=== PATIENT | male | born 1945 | race Caucasian/White ===

== ENCOUNTER 2019-10-04 08:35 | Outpatient (CLI) | payer MEDICARE, OTHER, SELFPAY ==
--- NOTE | 2019-10-04 08:15 | XR_ITS ---
WS: [id number] KUB, 10/04/2019 Clinical Data: Renal calculus Comparison: KUB, 09/29/2018. Findings: No abnormal intraabdominal masses or calcifications are seen. There is no dilatated small bowel or ev idence of obstruction. No definite renal or ureteral calculi are seen. There are phleboliths in the true pelvis. Degenerative change of the lumbar vertebral bodies is moder ate. XR/XR KUB [id number] Impression: Negative KUB.
== END 2019-10-04 08:36 | disposition home or self-care (01) ==
PROVIDERS: Family Provider Nurse Practitioner; PCP Family Medicine; Visit Provider Urology
DX: N20.0 Calculus of kidney (principal)
CPT/HCPCS: 74018; 81001

== ENCOUNTER 2020-04-25 11:45 | Emergency (ER) | payer MEDICARE, OTHER, SELFPAY ==
--- NOTE | 2020-04-25 11:49 | XRR_ITS ---
PROCEDURE INFORMATION: Exam: XR Chest, 1 View Exam date and time: 04/25/2020 12:07 PM Age: 74 years old Clinical indication: Other: Syncope TECHNIQUE: Imaging protocol: XR of the chest Views: 1 view. COMPARISON: No relevant prior studies available. FINDINGS: Lungs: Emphysematous change, interstitial prominence, chronic granulomatous disease. Pleural space: No pleural effusion. Heart/Mediastinum: Cardiac silhouette upper limits of normal in size. Bones/joints: Osteopenia and degenerative change. XR/XR chest 1V portable [id number] IMPRESSION: Emphysematous change, interstitial prominence, chronic granulomatous disease.
--- NOTE | 2020-04-25 11:49 | ECG_ITS ---
[facility] Test Date: 2020-04-25 Pat Name: Servando Whitmore Department: Room: Gender: Male Area Coordinator: : 1945 Requested By: Maxi Taveras Order Number: [id number] Michele MD: Se Ruano M.D. Measurements Intervals [place] Rate: 64 P: 41 DC: 167 QRS: 22 QRSD: 118 T: 34 QT: 448 QTc: 465 Interpretive Statements SINUS RHYTHM MODERATE INTRAVENTRICULAR CONDUCTION DELAY [110+ ms QRS DURATION] NONSPECIFIC ST & T-WAVE ABNORMALITY Compared to ECG 10/30/2015 00:32:11 T-wave abnormality now present ST (T wave) deviation no longer present Electronically Signed On 04-25-2020 18:36:26 CDT by Se Ruano M.D. [id number]
[2020-04-25 12:09] VITALS: BP 168/101; PULSE 66; RESP 18; TEMP 36.5; O2SAT 96; BMI 31.0
[2020-04-25 12:22] LABS: Basophils # 0.1 10^3/uL (0.0-0.1); Basophils % 1.1 %; Eosinophils # 0.2 10^3/uL (0.0-0.8); Eosinophils % 4.5 %; Hematocrit 44.6 % (42.0-52.0); Hemoglobin 14.9 g/dL (11.7-16.6); Lymphocytes # 1.6 10^3/uL (0.8-4.8); Lymphocytes % 35.7 %; Mean Corpuscular HGB Conc 33.4 g/dL (30.0-36.0); Mean Corpuscular Hemoglobin 30.8 pg (28.0-34.0); Mean Corpuscular Volume 92.1 fL (80-94); Mean Platelet Volume 9.8 fL (7.4-10.4); Monocytes # 0.2 10^3/uL (0.2-0.9); Monocytes % 5.1 %; Neutrophils % 53.6 %; Nucleated Red Blood Cells % 0 %; Platelet Count 165 10^3/cmm (130-400); Red Blood Count 4.84 10^6/uL (4.1-5.3); Red Cell Distribution Width 12.7 % (12.1-15.1); White Blood Count 4.5 10^3/uL (4.0-10.0)
--- NOTE | 2020-04-25 12:22 | CT_ITS ---
WS: [id number] CT HEAD NONCONTRAST HISTORY: syncope TECHNIQUE: Contiguous axial imaging performed through the brain in 2.5 mm imaging. Bone and soft tiss ue windows. Sagittal and coronal reformats reviewed. All CT scans at [facility] use at ast one of these dose optimization techniques: automated exposure control; mA and/or kV adjustment pe r patient size (includes targeted exams where dose is matched to clinical indication); or iterative r econstruction. DLP: 810.49 mGy.cm COMPARISON: 10/30/2015 No acute intracranial hemorrhage, midline shift or mass effect. Mild atrophy. Encephalomalacia and large remote LEFT occipital lobe infarct. Prior lacunar infarct o r perivascular space RIGHT basal ganglia. Ventricles: Normal size with no hydrocephalus. Paranasal sinuses: As visualized are clear. Mastoid air cells: Well pneumatized. Calvarium and scalp: Skull is intact with no soft tissue edema or swelling. CT/CT head wo con* [id number] IMPRESSION: 1. No acute intracranial hemorrhage or edema. 2. Large remote LEFT occipital lobe infarct with encephalomalacia. 3. Mild atrophy and chronic ischemic disease otherwise.
--- NOTE | 2020-04-25 12:22 | CT_ITS ---
WS: [id number] CT ABDOMEN AND PELVIS WITH CONTRAST HISTORY: Syncope and abdominal pain. TECHNIQUE: Imaging performed of the abdomen and pelvis with IV contrast. Single phase imaging of the abdomen. Coronal and sagittal reformats are submitted. All CT scans at [facility] use at least one of these dose optimization techniques: automated exposure control; mA and/or kV adjustment per patient size (includes targeted exams where dose is matched to clinical indication); or iterativ e reconstruction. IV CONTRAST: Visipaque 320; 95 mL IV. Oral contrast: No DLP: 1206.7 mGy.cm COMPARISON: 06/22/2019 Lower thorax: Lung bases are clear. Mild cardiac enlargement. Small amount of pericardial thickening or fluid anteriorly. Similar to the prior study. Small hiatal hernia. Liver/biliary system: Normal size with no intrahepatic dilatation. Gallbladder: Normal. No gallstones or wall thickening. No pericholecystic fluid. Pancreas: Normal. Spleen: Normal. Adrenal glands: Normal. Right kidney: Normal size kidney. No obstruction. Exophytic cyst medially from the mid kidney measure s 1.4 cm and unchanged. Left kidney: Normal size kidney. Several cortical cysts with the largest in the upper pole measuring 1.5 cm. No obstruction. Aorta: Mild atherosclerosis and ectasia. Maximum diameter of 2.8 cm. Mild tortuosity and dilatation o f the iliac arteries. No aneurysm. No periaortic hematoma. No free air. Lymphadenopathy: None. Free fluid: None. GI tract: No evidence for appendicitis. No GI tract obstruction. There are a few diverticula in the d escending and sigmoid colon. Abdominal wall: Fat-containing umbilical hernia. Pelvis: No free fluid or adenopathy. Urinary bladder is normal. Bilateral inguinal canals are patent and contains fat. Bones: Straightening of the normal lumbar lordosis. Disc space narrowing and desiccation. CT/CT abdomen pelvis w con* [id number] IMPRESSION: 1. No acute abdominal or pelvic abnormalities. 2. Descending colon and sigmoid diverticulosis without evidence for acute dive rticulitis. 3. Bilateral inguinal and umbilical hernias. 4. No ascites or adenopathy.
--- NOTE | 2020-04-25 12:25 | W.ED.SYNCOPE ---
HPI - Syncope General: Chief Complaint: Syncope Stated Complaint: SYNCOPE WHILE SITTING Time Seen by Provider: 04/25/20 12:09 Source: patient Mode of arrival: ambulatory Limitations: no limitations History of Present Illness: HPI narrative: 74-year-old male who states he was outside roughly an hour ago started to feel lightheaded and passed out for a few seconds. He states he had some abdominal pain before the event. He states been having intermittent abdominal pain like this for months and is felt near syncopal but is never passed out before. He states he vomited once after he came to. He denies any chest pain before after the event. Patient states he currently feels fine has no complaints. Denies any fever. Associated symptoms: Reports abdominal pain and nausea; Deny fever(s) or headache(s) Review of Systems Const: Denies: fever(s), chills, body aches or change in appetite Eyes: Denies: blurry vision or eye discomfort ENMT: Denies: throat pain or dental pain Card: Reports: syncope Resp: Denies: dyspnea GI: Reports: abdominal pain, nausea and vomiting : Denies: dysuria Musc: Denies: neck pain or back pain Skin/Breast: Denies: rash Neuro: Denies: headache(s) Psych: Denies: depression Stephan/Lymph: Denies: easy bruising All/Imm: Denies: urticaria PFSH ED PFSH: Medical History Abdominal aortic aneurysm (AAA) CVA (cerebrovascular accident) Diverticulosis Dizzy DVT (deep venous thrombosis) Dyslipidemia Gross hematuria Head ache Hemiparesis Hiatal hernia HTN (hypertension) Hyperlipidemia Peptic ulcer disease Urolithiasis VSD (ventricular septal defect) Surgical History H/O lithotripsy Family History Mother , at age 91 Lung disease Father , 36-MVA No problems noted. Social History Smoking and tobacco status: never smoked Alcohol intake: never Household members: spouse Marital status: service: Yes status details: 4 YEARS branch: [employer] Current occupational status: retired and disabled History of recent travel: No Current gender identity: Male Physical Exam Const: COMMON NORMALS: no acute distress, patient oriented x3 and healthy appearing HENMT: COMMON NORMALS: normocephalic and atraumatic HEAD & SCALP: normocephalic and atraumatic Eye: COMMON NORMALS: Equal, round and reactive pupils present and EOMs intact bilaterally PUPIL: Yes Equal, round and reactive pupils present Neck/C-Spine: COMMON NORMALS: full ROM and supple Chest: COMMONS NORMALS: normal inspection of the chest and normal palpation of entire chest wall Resp: COMMON NORMALS: normal respiratory effort, No retractions, No use of accessory muscles and clear to auscultation bilaterally AUSCULTATION: clear to auscultation bilaterally Cardio: COMMON NORMALS: regular rate, regular rhythm and No murmurs present (Cardio) RATE: regular rate RHYTHM: regular rhythm GI: COMMON NORMALS: Normal to inspection, nondistended, normoactive bowel sounds present, Soft to palpation, non-tender and no masses PALPATION: Yes Soft to palpation Extremity: COMMON NORMALS: normal to inspection and full ROM Neuro: COMMON NORMALS: patient oriented x3, moves all extremities and no focal motor deficits Psych: COMMON NORMALS: mental status grossly normal, Normal thought process present and cooperative THOUGHT PROCESS: Normal thought process present Skin: COMMON NORMALS: no rashes or lesions noted and no wounds GENERAL SKIN EXAM: no rashes or lesions noted Course Vital Signs: Vital signs: Vital Signs Temperature 97.7 F 04/25/20 12:09 Pulse Rate 60 04/25/20 13:03 Respiratory Rate 12 04/25/20 13:03 Blood Pressure 120/70 04/25/20 13:03 Pulse Oximetry 94 04/25/20 13:03 MDM - Syncope MDM Narrative: Medical decision making narrative: Patient presents here with a syncopal event. He is well-appearing here and has been asymptomatic here. Patient CT head along with CT abdomen are normal. Patient's initial and repeat troponins are normal as well. He is stable for discharge and is to follow-up with his PCP in 2 to 4 days. Patient is to return to the ER if worsening. He understands and agrees to plan. Lab Data: Labs: Lab Results 04/25/20 04/25/20 04/25/20 Range/Units 12:19 12:19 12:19 WBC 4.5 (4.0-10.0) 10^3/ uL RBC 4.84 (4.1-5.3) 10^6/u L Hgb 14.9 (11.7-16.6) g/dL Hct 44.6 (42.0-52.0) % MCV 92.1 (80-94) fL MCH 30.8 (28.0-34.0) pg MCHC 33.4 (30.0-36.0) g/dL RDW 12.7 (12.1-15.1) % Plt Count 165 (130-400) 10^3/c mm MPV 9.8 (7.4-10.4) fL Neut % (Auto) 53.6 % Lymph % (Auto) 35.7 % Victoria % (Auto) 5.1 % Eos % (Auto) 4.5 % Baso % (Auto) 1.1 % Neut # (Auto) 2.40 (1.8-7.7) 10^3/u L Lymph # (Auto) 1.6 (0.8-4.8) 10^3/u L Victoria # (Auto) 0.2 (0.2-0.9) 10^3/u L Eos # (Auto) 0.2 (0.0-0.8) 10^3/u L Baso # (Auto) 0.1 (0.0-0.1) 10^3/u L Nucleated RBC % (a uto) 0 % Nucleated RBCs # 0.0 /100WBC Sodium 140 (136-145) mmol/L Potassium 4.5 (3.5-5.1) mmol/L Chloride 108 H (98-107) mmol/L Carbon Dioxide 21 L (22-29) mmol/L Anion Gap 15.5 (5-19) BUN 11 (8-23) mg/dL Creatinine 1.1 (0.7-1.2) mg/dL GFR Calculation Not Reportable Glucose 158 H (65-115) mg/dL Calculated Osmolal ity 293 (285-295) mOsm/k g Calcium 9.8 (8.5-10.5) mg/dL Total Bilirubin 0.6 (0.15-1.2) mg/dL AST 24 (0-40) U/L ALT 22 (0-41) U/L Alkaline Phosphata se 59 (40-130) IU/L Troponin T Baselin e 9 (0-15) ng/L Troponin T 120 Min [place] (0-15) ng/L Delta Troponin T (0-10) ABS# Total Protein 7.3 (6.6-8.7) g/dL Albumin 4.5 (3.5-5.2) g/dL Globulin 2.8 (1.3-4.6) g/dL 04/25/20 Range/Units 14:07 WBC (4.0-10.0) 10^3/ uL RBC (4.1-5.3) 10^6/u L Hgb (11.7-16.6) g/dL Hct (42.0-52.0) % MCV (80-94) fL MCH (28.0-34.0) pg MCHC (30.0-36.0) g/dL RDW (12.1-15.1) % Plt Count (130-400) 10^3/c mm MPV (7.4-10.4) fL Neut % (Auto) % Lymph % (Auto) % Victoria % (Auto) % Eos % (Auto) % Baso % (Auto) % Neut # (Auto) (1.8-7.7) 10^3/u L Lymph # (Auto) (0.8-4.8) 10^3/u L Victoria # (Auto) (0.2-0.9) 10^3/u L Eos # (Auto) (0.0-0.8) 10^3/u L Baso # (Auto) (0.0-0.1) 10^3/u L Nucleated RBC % (a uto) % Nucleated RBCs # /100WBC Sodium (136-145) mmol/L Potassium (3.5-5.1) mmol/L Chloride (98-107) mmol/L Carbon Dioxide (22-29) mmol/L Anion Gap (5-19) BUN (8-23) mg/dL Creatinine (0.7-1.2) mg/dL GFR Calculation Glucose (65-115) mg/dL Calculated Osmolal ity (285-295) mOsm/k g Calcium (8.5-10.5) mg/dL Total Bilirubin (0.15-1.2) mg/dL AST (0-40) U/L ALT (0-41) U/L Alkaline Phosphata se (40-130) IU/L Troponin T Baselin e (0-15) ng/L Troponin T 120 Min [place] 9.05 (0-15) ng/L Delta Troponin T 0.05 (0-10) ABS# Total Protein (6.6-8.7) g/dL Albumin (3.5-5.2) g/dL Globulin (1.3-4.6) g/dL Imaging Data^: CT Abd/Pel: Attestation: I personally reviewed and interpreted this imaging study as follows: Radiologist's impression: [place] [address] CT Scan Report Signed Patient: Servando Whitmore Unit #: [id number] : 1945 Age/Sex: 74 / M ADM Date: 04/25/20 Loc: ER Room/Bed: Attending Dr: Ordering Provider/Ordering MD: Maxi Taveras MD Date of Service: 04/25/20 Procedure(s): CT abdomen pelvis w con* [id number] Accession Number(s): [id number] Report Number: [id number] WS: [id number] CT ABDOMEN AND PELVIS WITH CONTRAST HISTORY: Syncope and abdominal pain. TECHNIQUE: Imaging performed of the abdomen and pelvis with IV contrast. Single phase imaging of the abdomen. Coronal and sagittal reformats are submitted. All CT scans at [facility] use at least one of these dose optimization techniques: automated exposure control; mA and/or kV adjustment per patient size (includes targeted exams where dose is matched to clinical indication); or iterative reconstruction. IV CONTRAST: Visipaque 320; 95 mL IV. Oral contrast: No DLP: 1206.7 mGy.cm COMPARISON: 06/22/2019 Lower thorax: Lung bases are clear. Mild cardiac enlargement. Small amount of pericardial thickening or fluid anteriorly. Similar to the prior study. Small hiatal hernia. Liver/biliary system: Normal size with no intrahepatic dilatation. Gallbladder: Normal. No gallstones or wall thickening. No pericholecystic fluid. Pancreas: Normal. Spleen: Normal. Adrenal glands: Normal. Right kidney: Normal size kidney. No obstruction. Exophytic cyst medially from the mid kidney measures 1.4 cm and unchanged. Left kidney: Normal size kidney. Several cortical cysts with the largest in the upper pole measuring 1.5 cm. No obstruction. Aorta: Mild atherosclerosis and ectasia. Maximum diameter of 2.8 cm. Mild tortuosity and dilatation of the iliac arteries. No aneurysm. No periaortic hematoma. No free air. Lymphadenopathy: None. Free fluid: None. GI tract: No evidence for appendicitis. No GI tract obstruction. There are a few diverticula in the descending and sigmoid colon. Abdominal wall: Fat-containing umbilical hernia. Pelvis: No free fluid or adenopathy. Urinary bladder is normal. Bilateral inguinal canals are patent and contains fat. Bones: Straightening of the normal lumbar lordosis. Disc space narrowing and desiccation. CT/CT abdomen pelvis w con* [id number] IMPRESSION: 1. No acute abdominal or pelvic abnormalities. 2. Descending colon and sigmoid diverticulosis without evidence for acute diverticulitis. 3. Bilateral inguinal and umbilical hernias. 4. No ascites or adenopathy. CT Head: Radiologist's impression: [place] [address] CT Scan Report Signed Patient: Servando Whitmore Unit #: [id number] : 1945 Age/Sex: 74 / M ADM Date: 04/25/20 Loc: ER Room/Bed: Attending Dr: Ordering Provider/Ordering MD: Maxi Taveras MD Date of Service: 04/25/20 Procedure(s): CT head wo con* [id number] Accession Number(s): [id number] Report Number: [id number] WS: [id number] CT HEAD NONCONTRAST HISTORY: syncope TECHNIQUE: Contiguous axial imaging performed through the brain in 2.5 mm imaging. Bone and soft tissue windows. Sagittal and coronal reformats reviewed. All CT scans at [facility] use at least one of these dose optimization techniques: automated exposure control; mA and/or kV adjustment per patient size (includes targeted exams where dose is matched to clinical indication); or iterative reconstruction. DLP: 810.49 mGy.cm COMPARISON: 10/30/2015 No acute intracranial hemorrhage, midline shift or mass effect. Mild atrophy. Encephalomalacia and large remote LEFT occipital lobe infarct. Prior lacunar infarct or perivascular space RIGHT basal ganglia. Ventricles: Normal size with no hydrocephalus. Paranasal sinuses: As visualized are clear. Mastoid air cells: Well pneumatized. Calvarium and scalp: Skull is intact with no soft tissue edema or swelling. CT/CT head wo con* [id number] IMPRESSION: 1. No acute intracranial hemorrhage or edema. 2. Large remote LEFT occipital lobe infarct with encephalomalacia. 3. Mild atrophy and chronic ischemic disease otherwise. EKG Data^: EKG 1: Attestation: I personally reviewed and interpreted this EKG as follows: EKG interpretation date: 04/25/20 EKG interpretation time: 12:29 Interpretation: nsr hr [address] or t wave abnormalities qrs 118 qtc 458 EKG 2: Attestation: I personally reviewed and interpreted this EKG as follows: EKG interpretation date: 04/25/20 EKG interpretation time: 14:30 Interpretation: sinus skylar hr [address] or t wave abnormalities qrs 118 qtc 453 Discharge Plan Discharge Patient Disposition: Home Clinical Impression: Syncope Qualifiers: Syncope type: unspecified Qualified Code(s): R55 - Syncope and collapse Condition: Stable Prescriptions: No Action atorvastatin 40 mg tablet 40 mg PO DAILY RF: 0 metoprolol tartrate 50 mg tablet 25 mg PO BID RF: 0 montelukast 10 mg tablet 10 mg PO DAILY RF: 0 potassium citrate 10 mEq (1,080 mg) tablet extended release 10 meq PO BID RF: 0 topiramate 50 mg capsule,extended release 24hr 50 mg PO BID RF: 0 cholecalciferol (vitamin D3) 25 mcg (1,000 unit) capsule 1,000 unit PO DAILY RF: 0 pantoprazole 40 mg tablet,delayed release (DR/EC) 40 mg PO DAILY RF: 0 apixaban 5 mg tablet 2.5 mg PO BID RF: 0 omega 8-xel-key-fish oil 1,000 mg (120 mg-180 mg) capsule 1 cap PO DAILY RF: 0 Discharge Orders: Discharge Order (Routine); Ordered 04/25/20 Ordered By: Maxi Taveras Referrals: Magalis Mcgovern HAT DESIGNER-C [Family Provider] - 1-3 days José Hernandez [Primary Care Provider] - Discharge Diet: Advance as tolerated Discharge Activity: Resume usual activity Patient Instructions: Syncope (ED) Coding Level of Care Code ED Latexer for Magig Fwd Exam Comprehensive
[2020-04-25 12:42] LABS: Troponin(5th) Baseline 9 ng/L (0-15)
[2020-04-25 12:51] LABS: Alanine Aminotransferase 22 U/L (0-41); Albumin Level 4.5 g/dL (3.5-5.2); Alkaline Phosphatase 59 IU/L (40-130); Anion Gap 15.5 (5-19); Aspartate Amino Transferase 24 U/L (0-40); Blood Urea Nitrogen 11 mg/dL (8-23); Calcium 9.8 mg/dL (8.5-10.5); Carbon Dioxide 21 mmol/L (22-29); Chloride 108 mmol/L (98-107); Globulin 2.8 g/dL (1.3-4.6); Glucose 158 mg/dL (65-115); Osmolality Calculated 293 mOsm/kg (285-295); Potassium 4.5 mmol/L (3.5-5.1); Sodium 140 mmol/L (136-145); Total Bilirubin 0.6 mg/dL (0.15-1.2); Total Protein 7.3 g/dL (6.6-8.7)
[2020-04-25 13:03] VITALS: BP 120/70; PULSE 60; RESP 12; O2SAT 94
--- NOTE | 2020-04-25 13:49 | ECG_ITS ---
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 Measurements Intervals [place] Rate: 56 P: 57 MA: 144 QRS: 21 QRSD: 118 T: 29 QT: 461 QTc: 448 Interpretive Statements SINUS BRADYCARDIA MODERATE INTRAVENTRICULAR CONDUCTION DELAY [110+ ms QRS DURATION] NONSPECIFIC ST & T-WAVE ABNORMALITY Compared to ECG 04/25/2020 12:29:07 Sinus rhythm no longer present T-wave abnormality still present Electronically Signed On 04-25-2020 18:37:43 CDT by Se Ruano M.D. [id number]
[2020-04-25] MEDS: iodixanol 320 mg/mL 100mL Btl IV (13:56)
[2020-04-25 14:30] VITALS: BP 130/79; PULSE 63; RESP 20; O2SAT 92
[2020-04-25 14:31] LABS: Troponin 5 2HR 9.05 ng/L (0-15); Troponin 5 2HR Delta 0.05 ABS# (0-10)
[2020-04-25 15:05] VITALS: BP 138/69; PULSE 63; RESP 20; TEMP 36.6; O2SAT 92
== END 2020-04-25 15:08 | disposition home or self-care (01) ==
PROVIDERS: Emergency Provider Emergency Medicine; Family Provider Nurse Practitioner; PCP Family Medicine
DX: R55 Syncope and collapse (principal); Z86.73 Personal history of transient ischemic attack (TIA), and cerebral infarction without residual deficits; E78.5 Hyperlipidemia, unspecified; I10 Essential (primary) hypertension
CPT/HCPCS: 12345; 36415; 70450; 71045; 74177; 80053; 84484; 85025; 93005; 99283; 99284; Q9967

== ENCOUNTER 2020-06-29 20:16 | Inpatient (IN) | payer MEDICARE, OTHER, SELFPAY ==
--- NOTE | 2020-06-29 20:30 | ECG_ITS ---
[facility] Test Date: 2020-06-29 Pat Name: Servando Whitmore Department: Room: Gender: Male Cafe Attendant: : 1945 Requested By: Milo Crowe Order Number: [id number] Michele MD: MADAI TAN Measurements Intervals [place] Rate: 84 P: 10 TX: 125 QRS: -19 QRSD: 113 T: 6 QT: 383 QTc: 454 Interpretive Statements SINUS RHYTHM LOW QRS VOLTAGE IN PRECORDIAL LEADS [QRS DEFLECTION < 1.0 mV IN CHEST LEADS] MODERATE INTRAVENTRICULAR CONDUCTION DELAY [110+ ms QRS DURATION] MODERATE ST DEPRESSION [0.05+ mV ST DEPRESSION] Compared to ECG 04/25/2020 14:30:35 Low QRS voltage now present ST (T wave) deviation now present Sinus bradycardia no longer present T-wave abnormality no longer present Electronically Signed On 06-30-2020 17:27:39 WIG COMBER by MADAI TAN [id number]
[2020-06-29 20:31] VITALS: BP 146/83; PULSE 82; RESP 18; TEMP 36.4; O2SAT 92; BMI 29.5
--- NOTE | 2020-06-29 22:55 | ECG_ITS ---
[facility] Test Date: 2020-06-29 Pat Name: Servando Whitmore Department: Room: Gender: Male Database Report Writer: : 1945 Requested By: Milo Crowe Order Number: [id number] Michele MD: MADAI TAN Measurements Intervals [place] Rate: 90 P: 38 AR: 170 QRS: 1 QRSD: 101 T: 25 QT: 372 QTc: 457 Interpretive Statements SINUS RHYTHM MODERATE ST DEPRESSION [0.05+ mV ST DEPRESSION] Compared to ECG 04/25/2020 14:30:35 ST (T wave) deviation now present Sinus bradycardia no longer present Intraventricular conduction delay no longer present T-wave abnormality no longer present Electronically Signed On 06-30-2020 17:27:32 ONCOLOGY REGISTRAR by MADAI TAN [id number]
--- NOTE | 2020-06-29 22:55 | XRR_ITS ---
PROCEDURE INFORMATION: Exam: XR Chest, 1 View Exam date and time: 06/29/2020 11:20 PM Age: 74 years old Clinical indication: Shortness of breath; Patient HX: Syncopal episode. C/O SOB. Hypoxic; Additional info: Syncope TECHNIQUE: Imaging protocol: XR of the chest Views: 1 view. COMPARISON: CR XR chest 1V portable [id number] 04/25/2020 11:57 AM FINDINGS: Lungs: No consolidation. Pleural space: No pleural effusion. No pneumothorax. Heart/Mediastinum: No cardiomegaly. Vasculature: The thoracic aorta is mildly atherosclerotic. Bones/joints: Unremarkable. XR/XR chest 1V portable [id number] IMPRESSION: 1. No acute cardiopulmonary disease demonstrated. 2. There is no interval change from the prior examination.
--- NOTE | 2020-06-29 23:29 | CTR_ITS ---
PROCEDURE INFORMATION: Exam: CT Angiography Chest With Contrast Exam date and time: 06/29/2020 11:46 PM Age: 74 years old Clinical indication: Shortness of breath; Patient HX: SOB. Hypoxia. ; Additional info: Syncope, hypoxia TECHNIQUE: Imaging protocol: Computed tomographic angiography of the chest with intravenous contrast. 3D rendering (Not supervised by radiologist): MIP and/or 3D reconstructed images were created by the technologist. Radiation optimization: All CT scans at this facility use at least one of these dose optimization techniques: automated exposure control; mA and/or kV adjustment per patient size (includes targeted exams where dose is matched to clinical indication); or iterative reconstruction. Contrast material: OMNI 350; Contrast volume: 95 ml; Contrast route: INTRAVENOUS (IV); COMPARISON: CR XR chest 1V portable [id number] 06/29/2020 11:17 PM RADIATION DOSE METRICS: Total DLP (mGy-cm): 580.04 FINDINGS: Pulmonary arteries: Pulmonary arteries are well opacified. Pulmonary arteries are normal in caliber. No filling defects are demonstrated. No evidence of pulmonary embolism. Aorta: Atherosclerosis of the thoracic aorta. No aneurysm or dissection. Lungs: Mild subpleural fibrosis in the lower lungs bilaterally. No consolidative pulmonary infiltrates. Pleural space: No pneumothorax. No pleural effusion. Heart: Borderline cardiomegaly. No pericardial effusion. Lymph nodes: No pathologically enlarged lymph nodes are demonstrated. Bones/joints: Mild degenerative spine changes. No acute osseous abnormality demonstrated. Soft tissues: The soft tissues appear unremarkable. CT/CT angio chest PE protcl [id number] IMPRESSION: 1. No evidence of pulmonary embolism. 2. No evidence of aortic dissection. 3. Mild subpleural fibrosis in the lower lungs bilaterally. No consolidative pulmonary infiltrates. Radiation Dose CTDIVOL = (mGy): DLP = 580.04 (mGy-cm)
[2020-06-29 23:30] VITALS: BP 135/83; BP 136/85; BP 145/82; PULSE 91; PULSE 97; PULSE 99
--- NOTE | 2020-06-29 23:31 | PC.NURSE ---
Nurse at bedside.
[2020-06-29 23:44] LABS: Basophils % 0.4 %; Eosinophils # 0.1 10^3/uL (0.0-0.8); Eosinophils % 0.8 %; Hematocrit 45.4 % (42.0-52.0); Hemoglobin 15.5 g/dL (11.7-16.6); Lymphocytes # 1.9 10^3/uL (0.8-4.8); Lymphocytes % 20.8 %; Mean Corpuscular HGB Conc 34.1 g/dL (30.0-36.0); Mean Corpuscular Hemoglobin 31.2 pg (28.0-34.0); Mean Corpuscular Volume 91.3 fL (80-94); Mean Platelet Volume 9.9 fL (7.4-10.4); Monocytes # 0.4 10^3/uL (0.2-0.9); Monocytes % 4.4 %; Neutrophils # 6.71 10^3/uL (1.8-7.7); Neutrophils % 73.4 %; Nucleated Red Blood Cells % 0 %; Platelet Count 183 10^3/cmm (130-400); Red Blood Count 4.97 10^6/uL (4.1-5.3); Red Cell Distribution Width 13.1 % (12.1-15.1); White Blood Count 9.1 10^3/uL (4.0-10.0)
[2020-06-30] VITALS (103 sets, daily range): BP systolic 115–156; BP diastolic 76–97; PULSE 66–111; RESP 9–34; TEMP 36.5–36.8; O2SAT 77–100
[2020-06-30 00:03] LABS: Partial Thromboplastin Time 25.3 SECONDS (23.9-36.7)
[2020-06-30 00:09] LABS: Alanine Aminotransferase 23 U/L (0-41); Albumin Level 4.8 g/dL (3.5-5.2); Alkaline Phosphatase 69 IU/L (40-130); Anion Gap 15.7 (5-19); Aspartate Amino Transferase 18 U/L (0-40); Blood Urea Nitrogen 8 mg/dL (8-23); Calcium 9.9 mg/dL (8.5-10.5); Carbon Dioxide 22 mmol/L (22-29); Chloride 107 mmol/L (98-107); Globulin 2.6 g/dL (1.3-4.6); Glucose 161 mg/dL (65-115); Osmolality Calculated 294 mOsm/kg (285-295); Potassium 3.7 mmol/L (3.5-5.1); Sodium 141 mmol/L (136-145); Total Bilirubin 0.5 mg/dL (0.15-1.2); Total Protein 7.4 g/dL (6.6-8.7)
[2020-06-30 00:11] LABS: Troponin(5th) Baseline 8 ng/L (0-15)
[2020-06-30 00:34] LABS: PO2 ABG 46.7 mmHg (80.0-100.0)
[2020-06-30 00:36] LABS: ABG PCO2 26.4 mmHg (35-45); ABG PH Result 7.46 (7.35-7.45); Base Excess ABG -2.9 mmol/L (-2.0-2.0); Blood Gas Allen Test Pos; Blood Gas Operator Identificat Anonymous; Blood Gas Sample Site Radial, right; Blood Gas Sample Type Arterial
[2020-06-30] MEDS: iohexol 350 mg/mL 100 mL Btl IV (00:37)
[2020-06-30 01:11] LABS: Oxygen Device ROOM AIR
[2020-06-30 01:12] LABS: ABG PCO2 26.4 mmHg (35-45); ABG PH Result 7.46 (7.35-7.45); Base Excess ABG -2.9 mmol/L (-2.0-2.0); PO2 ABG 37.7 mmHg (80.0-100.0)
[2020-06-30 01:13] LABS: Blood Gas Drawn By HARKR; Blood Gas Sample Type ARTERIAL; Oxygen Device ROOM AIR
[2020-06-30 01:25] LABS: Add Urine Microscopic? NO
[2020-06-30 01:46] LABS: Bilirubin Urine Neg (Negative); Blood Urine Neg (Negative); Glucose Urine UA Norm (Normal); Ketones Urine Negative (Negative); Leukocyte Esterase Urine Negative (Negative); Nitrate Urine Negative (Negative); Protein Urine Neg (Negative); Urine Appearance Clear (CLEAR); Urine Color Yellow (Yellow); Urobilinogen Urine Norm (Negative); pH Urine 7 (5-7)
[2020-06-30 02:01] LABS: Troponin 5 2HR 8.11 ng/L (0-15); Troponin 5 2HR Delta 0.11 ABS# (0-10)
--- NOTE | 2020-06-30 02:13 | W.ED.SYNCOPE ---
HPI - Syncope General: Chief Complaint: Syncope Stated Complaint: PASSING OUT Time Seen by Provider: 06/29/20 22:29 History of Present Illness: HPI narrative: 74-year-old gentleman with a remote history of stroke presents with an episode of nausea followed by syncope while eating out with his this evening. Ambulance was called. He had woken by the time ambulance arrived. In the field, hypoxia was noted in the low to mid 80s, that seemed to spontaneously resolved. By the time he arrived here, his oxygen sat was good. He was asymptomatic on arrival. He says that before he passed out, he had an intense wave of nausea. He had no other symptoms including no chest pain, no shortness of breath, no dizziness, no mental status changes. Associated symptoms: Reports nausea; Deny abdominal pain, chest pain, fever(s), headache(s) or vertigo Review of Systems Const: Denies: fever(s) or chills Eyes: Denies: change in vision ENMT: Denies: odynophagia, swelling of lips/tongue or sinus pain Card: Denies: chest pain, palpitations or irregular heart rhythm Resp: Denies: dyspnea, productive cough, non-productive cough or wheezing GI: Reports: nausea; Denies: abdominal pain or vomiting : Denies: difficulty urinating or hematuria Musc: Denies: neck pain or back pain Skin/Breast: Denies: rash or erythema Neuro: Denies: headache(s), dizziness, vertigo, confusion or seizure-like activity Psych: Denies: anxiety PFSH ED PFSH: Medical History (Updated 05/03/20 @ 00:00 by ) Abdominal aortic aneurysm (AAA) CVA (cerebrovascular accident) Diverticulosis Dizzy DVT (deep venous thrombosis) Dyslipidemia Gross hematuria Head ache Hemiparesis Hiatal hernia HTN (hypertension) Hyperlipidemia Peptic ulcer disease Urolithiasis VSD (ventricular septal defect) Surgical History H/O lithotripsy Family History Mother , at age 91 Lung disease Father , 36-MVA No problems noted. Social History Smoking and tobacco status: never smoked Alcohol intake: never Household members: spouse Marital status: service: Yes status details: 4 YEARS branch: [employer] Current occupational status: retired and disabled History of recent travel: No Current gender identity: Male Physical Exam Const: GENERAL APPEARANCE: well developed ORIENTATION/CONSCIOUSNESS: Yes oriented to person, Yes oriented to place and Yes oriented to time HENMT: COMMON NORMALS: normocephalic, external ears normal and Normal external nose present HEAD & SCALP: normocephalic FACE & SINUS: normal facial exam NOSE: Normal external nose present and No nasal discharge present EXTERNAL EAR: Yes external ears normal THROAT: posterior oropharynx normal; no peritonsillar mass Eye: COMMON NORMALS: Equal, round and reactive pupils present, EOMs intact bilaterally and conjunctivae normal EYELID: eyelids normal CONJUNCTIVA: Yes conjunctivae normal PUPIL: Yes Equal, round and reactive pupils present Neck/C-Spine: GENERAL: No tracheal deviation Chest: COMMONS NORMALS: normal inspection of the chest CHEST: No tenderness Resp: COMMON NORMALS: clear to auscultation bilaterally EFFORT & INSPECTION: No tachypneic, No respiratory distress, No retractions, No uses accessory muscles and No tracheal deviation AUSCULTATION: clear to auscultation bilaterally, no rhonchi, no wheezes and lung sounds not diminished Cardio: COMMON NORMALS: regular rate and regular rhythm RATE: regular rate RHYTHM: regular rhythm HEART SOUNDS: no murmurs PERIPHERAL PULSES: radial pulses present GI: INSPECTION: No abdominal distension AUSCULTATION: No Hyperactive bowel sounds present and No Hypoactive bowel sounds present PALPATION: No Guarding due to palpation present (GI) and No Rigid due to palpation PERCUSSION: no dullness to percussion and no tympanic to percussion Neuro: SENSORIUM/ORIENTATION: Yes oriented to person, Yes oriented to place and Yes oriented to time Psych: COMMON NORMALS: mental status grossly normal Skin: COMMON NORMALS: no rashes or lesions noted GENERAL SKIN EXAM: no rashes or lesions noted Course Vital Signs: Vital signs: Vital Signs Temperature 97.6 F 06/29/20 20:31 Pulse Rate 110 H 06/30/20 01:50 Respiratory Rate 19 H 06/30/20 01:50 Blood Pressure 136/85 06/29/20 23:30 Pulse Oximetry 82 L 06/30/20 01:50 MDM - Syncope MDM Narrative: Medical decision making narrative: 74-year-old gentleman here after a short syncopal episode. He was nauseated before. No other symptoms before. When seen in the room, he is asymptomatic, and states that he feels fine. He wonders if he just had not drank enough water. While in the room, though, he had another desaturation, with a pulse ox on room air in the low 80s. To ensure this was true, blood gas was obtained, and showed a PO2 of 27. He was placed on 4 L and blood gas was repeated, with a PO2 of 39. He was then placed on high flow heated nasal cannula, but pulse ox still continues to be in the upper 80s. The patient does not believe. He does not complain of shortness of breath. He is not tachypneic. He has a history of a VSD, but repair was not recommended at the time of his echo. His CTA was negative for pneumonia or pneumonitis, negative for pulmonary embolism, negative for fluid overload. Mechanism of his hypoxia is unclear at this point. It would take a large shunt for him to have this amount of hypoxia one would believe. He will be admitted for hypoxic respiratory failure, and further work-up. Lab Data: Labs: Lab Results 06/29/20 06/29/20 06/29/20 Range/Units 23:19 23:19 23:19 WBC 9.1 (4.0-10.0) 10^3/ uL RBC 4.97 (4.1-5.3) 10^6/u L Hgb 15.5 (11.7-16.6) g/dL Hct 45.4 (42.0-52.0) % MCV 91.3 (80-94) fL MCH 31.2 (28.0-34.0) pg MCHC 34.1 (30.0-36.0) g/dL RDW 13.1 (12.1-15.1) % Plt Count 183 (130-400) 10^3/c mm MPV 9.9 (7.4-10.4) fL Neut % (Auto) 73.4 % Lymph % (Auto) 20.8 % [place] % (Auto) 4.4 % Eos % (Auto) 0.8 % Baso % (Auto) 0.4 % Neut # (Auto) 6.71 (1.8-7.7) 10^3/u L Lymph # (Auto) 1.9 (0.8-4.8) 10^3/u L [place] # (Auto) 0.4 (0.2-0.9) 10^3/u L Eos # (Auto) 0.1 (0.0-0.8) 10^3/u L Baso # (Auto) 0.0 (0.0-0.1) 10^3/u L Nucleated RBC % (a uto) 0 % Nucleated RBCs # 0.0 /100WBC PT 13.50 (12.1-14.9) SECO NDS INR 1.00 (0.8-1.2) APTT 25.3 (23.9-36.7) SECO NDS Specimen Type Sample Site ABG pH (7.35-7.45) ABG pCO2 (35-45) mmHg ABG pO2 (80.0-100.0) mmH g ABG HCO3 (22-26) mmol/L ABG Base Excess (-2.0-2.0) mmol/ L Michel Test Hematocrit (42-52) % O2 Delivery Device O2 Liters/Min % FiO2 % Specimen Drawn By Office Machine Inspector ID Sodium 141 (136-145) mmol/L Potassium 3.7 (3.5-5.1) mmol/L Chloride 107 (98-107) mmol/L Carbon Dioxide 22 (22-29) mmol/L Anion Gap 15.7 (5-19) BUN 8 (8-23) mg/dL Creatinine 0.9 (0.7-1.2) mg/dL GFR Calculation Not Reportable Glucose 161 H (65-115) mg/dL Calculated Osmolal ity 294 (285-295) mOsm/k g Calcium 9.9 (8.5-10.5) mg/dL Total Bilirubin 0.5 (0.15-1.2) mg/dL AST 18 (0-40) U/L ALT 23 (0-41) U/L Alkaline Phosphata se 69 (40-130) IU/L Troponin T Baselin e (0-15) ng/L Troponin T 120 Min [place] (0-15) ng/L Delta Troponin T (0-10) ABS# Total Protein 7.4 (6.6-8.7) g/dL Albumin 4.8 (3.5-5.2) g/dL Globulin 2.6 (1.3-4.6) g/dL Urine Color (Yellow) Urine Appearance (CLEAR) Urine pH (5-7) Ur Specific Gravit y (1.005-1.030) Urine Protein (Negative) Urine Glucose (UA) (Normal) Urine Ketones (Negative) Urine Blood (Negative) Urine Nitrate (Negative) Urine Bilirubin (Negative) Urine Urobilinogen (Negative) mg/dL Ur Leukocyte Karen ase (Negative) 06/29/20 06/29/20 06/30/20 Range/Units 23:19 23:53 00:00 WBC (4.0-10.0) 10^3/ uL RBC (4.1-5.3) 10^6/u L Hgb (11.7-16.6) g/dL Hct (42.0-52.0) % MCV (80-94) fL MCH (28.0-34.0) pg MCHC (30.0-36.0) g/dL RDW (12.1-15.1) % Plt Count (130-400) 10^3/c mm MPV (7.4-10.4) fL Neut % (Auto) % Lymph % (Auto) % [place] % (Auto) % Eos % (Auto) % Baso % (Auto) % Neut # (Auto) (1.8-7.7) 10^3/u L Lymph # (Auto) (0.8-4.8) 10^3/u L [place] # (Auto) (0.2-0.9) 10^3/u L Eos # (Auto) (0.0-0.8) 10^3/u L Baso # (Auto) (0.0-0.1) 10^3/u L Nucleated RBC % (a uto) % Nucleated RBCs # /100WBC PT (12.1-14.9) SECO NDS INR (0.8-1.2) APTT (23.9-36.7) SECO NDS Specimen Type Arterial Arterial Sample Site Radial, right Right,radial ABG pH 7.46 H 7.46 H (7.35-7.45) ABG pCO2 26.4 L 26.4 L (35-45) mmHg ABG pO2 46.7 L 37.7 L* (80.0-100.0) mmH g ABG HCO3 19.0 L 19.0 L (22-26) mmol/L ABG Base Excess -2.9 L -2.9 L (-2.0-2.0) mmol/ L Michel Test Pos Hematocrit 51.0 51.0 (42-52) % O2 Delivery Device Room air Room air O2 Liters/Min 4.0 % FiO2 21.0 21.0 % Specimen Drawn By fredy Love Office Machine Inspector ID Anonymous Sodium (136-145) mmol/L Potassium (3.5-5.1) mmol/L Chloride (98-107) mmol/L Carbon Dioxide (22-29) mmol/L Anion Gap (5-19) BUN (8-23) mg/dL Creatinine (0.7-1.2) mg/dL GFR Calculation Glucose (65-115) mg/dL Calculated Osmolal ity (285-295) mOsm/k g Calcium (8.5-10.5) mg/dL Total Bilirubin (0.15-1.2) mg/dL AST (0-40) U/L ALT (0-41) U/L Alkaline Phosphata se (40-130) IU/L Troponin T Baselin e 8 (0-15) ng/L Troponin T 120 Min [place] (0-15) ng/L Delta Troponin T (0-10) ABS# Total Protein (6.6-8.7) g/dL Albumin (3.5-5.2) g/dL Globulin (1.3-4.6) g/dL Urine Color (Yellow) Urine Appearance (CLEAR) Urine pH (5-7) Ur Specific Gravit y (1.005-1.030) Urine Protein (Negative) Urine Glucose (UA) (Normal) Urine Ketones (Negative) Urine Blood (Negative) Urine Nitrate (Negative) Urine Bilirubin (Negative) Urine Urobilinogen (Negative) mg/dL Ur Leukocyte Karen ase (Negative) 06/30/20 06/30/20 Range/Units 01:05 01:05 WBC (4.0-10.0) 10^3/ uL RBC (4.1-5.3) 10^6/u L Hgb (11.7-16.6) g/dL Hct (42.0-52.0) % MCV (80-94) fL MCH (28.0-34.0) pg MCHC (30.0-36.0) g/dL RDW (12.1-15.1) % Plt Count (130-400) 10^3/c mm MPV (7.4-10.4) fL Neut % (Auto) % Lymph % (Auto) % [place] % (Auto) % Eos % (Auto) % Baso % (Auto) % Neut # (Auto) (1.8-7.7) 10^3/u L Lymph # (Auto) (0.8-4.8) 10^3/u L [place] # (Auto) (0.2-0.9) 10^3/u L Eos # (Auto) (0.0-0.8) 10^3/u L Baso # (Auto) (0.0-0.1) 10^3/u L Nucleated RBC % (a uto) % Nucleated RBCs # /100WBC PT (12.1-14.9) SECO NDS INR (0.8-1.2) APTT (23.9-36.7) SECO NDS Specimen Type Sample Site ABG pH (7.35-7.45) ABG pCO2 (35-45) mmHg ABG pO2 (80.0-100.0) mmH g ABG HCO3 (22-26) mmol/L ABG Base Excess (-2.0-2.0) mmol/ L Michel Test Hematocrit (42-52) % O2 Delivery Device O2 Liters/Min % FiO2 % Specimen Drawn By Office Machine Inspector ID Sodium (136-145) mmol/L Potassium (3.5-5.1) mmol/L Chloride (98-107) mmol/L Carbon Dioxide (22-29) mmol/L Anion Gap (5-19) BUN (8-23) mg/dL Creatinine (0.7-1.2) mg/dL GFR Calculation Glucose (65-115) mg/dL Calculated Osmolal ity (285-295) mOsm/k g Calcium (8.5-10.5) mg/dL Total Bilirubin (0.15-1.2) mg/dL AST (0-40) U/L ALT (0-41) U/L Alkaline Phosphata se (40-130) IU/L Troponin T Baselin e (0-15) ng/L Troponin T 120 Min [place] 8.11 (0-15) ng/L Delta Troponin T 0.11 (0-10) ABS# Total Protein (6.6-8.7) g/dL Albumin (3.5-5.2) g/dL Globulin (1.3-4.6) g/dL Urine Color Yellow (Yellow) Urine Appearance Clear (CLEAR) Urine pH 7 (5-7) Ur Specific Gravit y 1.010 (1.005-1.030) Urine Protein Neg (Negative) Urine Glucose (UA) Norm (Normal) Urine Ketones Negative (Negative) Urine Blood Neg (Negative) Urine Nitrate Negative (Negative) Urine Bilirubin Neg (Negative) Urine Urobilinogen Norm (Negative) mg/dL Ur Leukocyte Karen ase Negative (Negative) Discharge Plan Discharge Admit Provider: Milo Cortez Coding Level of Care Code ED Occupational Therapist Assistant for Aliya Goodwin
--- NOTE | 2020-06-30 02:42 | P.HP_ITS ---
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 Ruiz in July 2019 for possible percutaneous closure of VSD. At that time he decided that there is no need for the invasive procedure. He came in today after experiencing an acute loss of consciousness while dining with his , loss of consciousness was preceded by episode of nausea, denies any choking episode, denies any seizure-like active, any urinary or bowel incontinence, any postictal confusion, any weakness in any body part, no spinning of head.Loss of consciousness was witnessed by his according to her he was out for 1 minute. He has similar episodes of syncope 1-2 times in the past, but mostly complains of being nauseous. He was also hypoxic when being brought to the hospital he was saturating in the mid 80s. ABG in the ER: Suggestive of hypoxia. He was placed on heated high flow oxygen through nasal cannula as he was desaturating in 80s ER. He is saturating above 90% on heated high flow oxygen through nasal cannula. ECA course: CT angio chest: PE ruled out. No signs of aspiration pneumonia, no signs suggestive of Covid pneumonia. EKG: SINUS RHYTHM MODERATE ST DEPRESSION [0.05+ mV ST DEPRESSION] Compared to ECG 04/25/2020 14:30:35 ST (T wave) deviation now present. Head CT without contrast: Was not done as the patient do not have any signs suggestive of focal weakness. ABG : pH: 7.46, PCO2: 26, PO2:46, FiO2 21%. Labs: Troponin: Baseline: 8, Review of Systems Const: Denies: fever(s), chills, body aches, change in appetite or diaphoresis Card: Denies: palpitations, swelling of feet/ankles, dyspnea on exertion, orthopnea or leg pain with exertion Resp: Denies: dyspnea, productive cough, wheezing or pain on inspiration GI: Denies: abdominal pain, diarrhea or constipation : Denies: flank pain or difficulty urinating Musc: Denies: back pain, extremity pain or extremity swelling Neuro: Denies: headache(s), difficulty walking or confusion Medications/Allergies Home Medications Medication Instructions Recorded Confirmed Last Taken Type atorvastatin 40 mg tablet 40 mg PO DAILY tab 08/09/19 04/25/20 04/24/20 History metoprolol tartrate 50 mg tablet 25 mg PO BID 08/09/19 04/25/20 04/25/20 History montelukast 10 mg tablet 10 mg PO DAILY 08/09/19 04/25/20 04/24/20 History potassium citrate 10 mEq (1,080 10 meq PO BID tab 08/09/19 04/25/20 04/25/20 History mg) tablet,extended release topiramate 50 mg capsule,extended 50 mg PO BID cap 08/09/19 04/25/20 04/25/20 History release 24 hr apixaban 5 mg tablet 2.5 mg PO BID 10/04/19 04/25/20 04/25/20 History cholecalciferol (vitamin D3) 25 1,000 unit PO DAILY 10/04/19 04/25/20 04/25/20 History mcg (1,000 unit) capsule omega [id number] oil 1,000 mg 1 cap PO DAILY 10/04/19 04/25/20 04/25/20 History (120 mg-180 mg) capsule pantoprazole 40 mg tablet,delayed 40 mg PO DAILY 10/04/19 04/25/20 04/25/20 History release Allergies Allergy/AdvReac Type Severity Reaction Status Date / Time hydromorphone [From Dilaudid] Allergy UNK Verified 10/04/19 09:40 PFSH Acute PFSH: Medical History (Updated 06/30/20 @ 05:17 by Milo Cortez MD) Abdominal aortic aneurysm (AAA) CVA (cerebrovascular accident) Diverticulosis Dizzy DVT (deep venous thrombosis) Dyslipidemia Gross hematuria Head ache Hemiparesis Hiatal hernia HTN (hypertension) Hyperlipidemia Peptic ulcer disease Urolithiasis VSD (ventricular septal defect) Surgical History H/O lithotripsy Family History Mother , at age 91 Lung disease Father , 36-MVA No problems noted. Social History Smoking and tobacco status: never smoked Alcohol intake: never Household members: spouse Marital status: service: Yes status details: 4 YEARS branch: [employer] Current occupational status: retired and disabled History of recent travel: No Current gender identity: Male Vitals/I&O/Wt Last Vital Signs Temp 97.6 F 06/29/20 20:31 Pulse 111 H 06/30/20 02:29 Resp 17 06/30/20 02:29 BP 136/97 06/30/20 02:29 Pulse Ox 92 06/30/20 02:29 Weight last 48 hrs Weight 90.718 kg Physical Exam Const: COMMON NORMALS: patient oriented x3 HENMT: COMMON NORMALS: normocephalic, atraumatic, hearing grossly normal bilaterally and external ears normal HEAD & SCALP: normocephalic and atraumatic EXTERNAL EAR: Yes external ears normal Eye: COMMON NORMALS: no scleral icterus GENERAL EYE: appearance normal, both eyes and all related structures Chest: COMMONS NORMALS: normal inspection of the chest and normal palpation of entire chest wall CHEST: Yes Symmetrical chest wall rise Resp: COMMON NORMALS: normal respiratory effort, No retractions, No use of accessory muscles and clear to auscultation bilaterally EFFORT & INSPECTION: Yes symmetric chest movement AUSCULTATION: clear to auscultation bilaterally Cardio: COMMON NORMALS: regular rate, regular rhythm, S1 normal heart sound present, S2 normal heart sound present, No gallops present (Cardio), No murmurs present (Cardio), No rub (Cardio) and Peripheral pulses 2+ throughout RATE: regular rate RHYTHM: regular rhythm HEART SOUNDS: S1 normal heart sound present and S2 normal heart sound present PERIPHERAL PULSES: Peripheral pulses 2+ throughout GI: COMMON NORMALS: Normal to inspection, nondistended, normoactive bowel sounds present, Soft to palpation, non-tender, No hepatosplenomegaly present and no masses AUSCULTATION: Yes normoactive bowel sounds PALPATION: Yes Soft to palpation and Yes No hepatosplenomegaly present RECTAL EXAM: Yes deferred Extremity: COMMON NORMALS: no clubbing, cyanosis or edema and no pedal edema Neuro: COMMON NORMALS: patient oriented x3 Data : 06/29/20 23:19 06/29/20 23:19 A&P Assessment and plan (1) Syncope: Likely vasovagal. Telemetry Orthostatic Vital q6h 2D Echo Fall Precaution Status: Acute (2) Respiratory failure with hypoxia: Possibly due to aspiration PNA. Supplemental oxygen as needed Levofloxacin 750 mg IV daily Status: Acute (3) CVA (cerebrovascular accident): No acute intervention for now Status: Acute (4) HTN (hypertension): Well-controlled, Continue metoprolol.T 25 mg every 12 hours daily Status: Acute (5) VSD (ventricular septal defect): Had DARA with bubble study in the past. Will order repeat 2D echo. Status: Acute (6) DVT (deep venous thrombosis): History of DVT we will continue with Eliquis 2.5 mg every 12 hours Status: Acute Additional A&P Information DVT PPX: Not needed on Eliquis Code status :Full code Disposition :Home Attestations Medical Necessity Statement*: Patient is to be in hospital for management and evaluation of syncope as well as acute hypoxic respiratory failure. Anticipated length of stay greater than 2 midnights. Coding Level of Care Code Acute Production Administrator for [facility] Christa Diagnoses Syncope R55 Respiratory failure with hypoxia J96.91 CVA (cerebrovascular accident) I63.9 HTN (hypertension) I10 VSD (ventricular septal defect) Q21.0 DVT (deep venous thrombosis) I82.409
--- NOTE | 2020-06-30 02:43 | USCV_ITS ---
Servando Whitmore Age: 74 Gender: M : 1945 Exam Date: 06/30/2020 06:34 Ordering Phys: Milo Cortez MD Technologist: Ese Palomino [place]am [place] [facility] [place]: Syncope BP: 118 / 85 HR: 86 Rhythm: Sinus Technical Quality: Technically difficult study MEASUREMENTS (Male / Female) Normal Values 2D ECHO LV Diastolic Diameter PLAX 3.3 cm 4.2 - 5.9 / 3.9 - 5.3 cm LV Systolic Diameter PLAX 2.4 cm LV Chamber Size 3.0 cm IVS Diastolic Thickness 1.8 cm 0.6 - 1.0 / 0.6 - 0.9 cm IVS Systolic Thickness 2.4 cm LVPW Diastolic Thickness 1.3 cm 0.6 - 1.0 / 0.6 - 0.9 cm LVPW Systolic Thickness 1.6 cm RV Chamber Size 3.3 cm LVOT Diameter 2.1 cm LV Ejection Fraction 2D Teich 55.0 % LV Ejection Fraction MOD 2C 62.6 % LV Ejection Fraction 2C AL 63.1 % LA Diameter 3.9 cm LA Width 2.7 cm LA Height 4.4 cm RA Width 2.6 cm RA Height 5.0 cm Aorta at Sinotubular Diameter 3.9 cm M-MODE LV Diastolic Diameter MM 6.5 cm 4.2 - 5.9 / 3.9 - 5.3 cm LV Systolic Diameter MM 4.2 cm LV Ejection Fraction MM Teich 63.8 % IVS Diastolic Thickness MM 1.1 cm 0.6 - 1.0 / 0.6 - 0.9 cm IVS Systolic Thickness MM 1.6 cm LVPW Diastolic Thickness MM 1.2 cm 0.6 - 1.0 / 0.6 - 0.9 cm LVPW Systolic Thickness MM 1.8 cm RV Diastolic Diameter MM 1.2 cm Aortic Annulus Diameter 5.1 cm LA Ao Ratio MM 0.9 DOPPLER AV Peak Velocity 100.0 cm/s LVOT Peak Velocity 84.0 cm/s AV Area Cont Eq vti 4.6 cm squared AV Area Cont Eq pk 2.9 cm squared MV Area PHT 6.7 cm squared Mitral E to A Ratio 0.5 MV E' Velocity 22.5 cm/s Mitral E to MV E' Ratio 4.7 Mitral E to LV E' Lateral Ratio 4.2 Mitral E to LV E' Septal Ratio 5.5 TV Peak E Velocity 67.0 cm/s Right Atrial Pressure 3.0 mmHg PV Peak Velocity 91.0 cm/s QpQs Shunt Ratio 0.9 RV Acceleration Time 0.1 s RV Ejection Time 0.2 s RV AcT/ET 0.3 FINDINGS Left Ventricle Normal left ventricular cavity size. Normal left ventricular systolic function. No regional wall motion abnormalities. Left ventricular ejection fraction is estimated at 60 %. Grade I/IV diastolic dysfunction (abnormal relaxation filling pattern), normal to mildly elevated filling pressures. Right Ventricle The right ventricle is normal in size and function. RVSP could not be calculated due to incomplete tricuspid regurgitation velocity profile. Right Atrium The right atrium is normal in size. Left Atrium The left atrium is normal in size. Mitral Valve Structurally normal mitral valve without significant stenosis or prolapse. There is no mitral regurgitation. Aortic Valve Aortic valve sclerosis. No aortic valve stenosis. Trace aortic valve regurgitation. Tricuspid Valve Mild tricuspid valve regurgitation. Pulmonic Valve Structurally normal pulmonic valve without significant stenosis. There is no pulmonic regurgitation. Pericardium Normal pericardium without effusion. Aorta Normal ascending aorta dimension. CONCLUSIONS 1-Normal left ventricular cavity size. Normal left ventricular systolic function. No regional wall motion abnormalities. Left ventricular ejection fraction is estimated at 60 %. Grade I/IV diastolic dysfunction (abnormal relaxation filling pattern), normal to mildly elevated filling pressures. 2-The right ventricle is normal in size and function. RVSP could not be calculated due to incomplete tricuspid regurgitation velocity profile. 3-No significant valve abnormalities. 4-There is no pericardial effusion. 5-Right atrial pressure is around 5 mm of mercury. 6-There are no prior echocardiogram studies to compare. Se Ruano MD (Electronically Signed) Final Date: 30 June 2020 14:20 S
[2020-06-30 03:32] LABS: SARS Covid-2 Antigen Negative (Negative)
--- NOTE | 2020-06-30 04:35 | PC.NURSE ---
Patient arrived to unit via stretcher from ED Patient on heated high flow and RT is present with transfer. Patient in no apparent distress at this time. Patient is on heated high flow at 45 L of O2 and 70% FiO2. Patient saturation of oxygen is noted to be in the upper 90's at time of arrival to floor. No skin issues patient is A&O X 4. Patient has had pneumonia and flu vaccinations. Will continue to monitor and assist as needed following CPOC
--- NOTE | 2020-06-30 05:56 | PC.NURSE ---
Patient is going down into the low 80's on heated high flow. Patient appears to be in no distress and is joking around. Patient stated, I keep breathing through my mouth. I will try to keep my mouth shut. RT notified of change in saturations at this time.
[2020-06-30 06:43] LABS: Basophils % 0.5 %; Eosinophils # 0.1 10^3/uL (0.0-0.8); Eosinophils % 1.1 %; Hematocrit 45.5 % (42.0-52.0); Hemoglobin 15.8 g/dL (11.7-16.6); Lymphocytes # 2.5 10^3/uL (0.8-4.8); Lymphocytes % 32.9 %; Mean Corpuscular HGB Conc 34.7 g/dL (30.0-36.0); Mean Corpuscular Hemoglobin 31.2 pg (28.0-34.0); Mean Corpuscular Volume 89.7 fL (80-94); Monocytes # 0.6 10^3/uL (0.2-0.9); Monocytes % 7.4 %; Neutrophils # 4.31 10^3/uL (1.8-7.7); Nucleated Red Blood Cells % 0 %; Platelet Count 203 10^3/cmm (130-400); Red Blood Count 5.07 10^6/uL (4.1-5.3); Red Cell Distribution Width 12.9 % (12.1-15.1); White Blood Count 7.4 10^3/uL (4.0-10.0)
[2020-06-30 06:47] LABS: INR 1.02 (0.8-1.2)
[2020-06-30 06:48] LABS: Partial Thromboplastin Time 27.7 SECONDS (23.9-36.7)
[2020-06-30] MEDS: levofloxacin-dextrose 5 % 750 MG/150 ML PREMIX 100 MG IV (07:14)
[2020-06-30 07:41] LABS: Alanine Aminotransferase 23 U/L (0-41); Albumin Level 4.7 g/dL (3.5-5.2); Alkaline Phosphatase 72 IU/L (40-130); Anion Gap 17.7 (5-19); Aspartate Amino Transferase 18 U/L (0-40); Blood Urea Nitrogen 10 mg/dL (8-23); Carbon Dioxide 20 mmol/L (22-29); Chloride 108 mmol/L (98-107); Globulin 2.9 g/dL (1.3-4.6); Glucose 106 mg/dL (65-115); Magnesium 2.2 mg/dL (1.7-2.3); Osmolality Calculated 293 mOsm/kg (285-295); Potassium 3.7 mmol/L (3.5-5.1); Sodium 142 mmol/L (136-145); Thyroid Stimulating Hormone 2.85 uIU/mL (0.27-4.20); Total Bilirubin 0.4 mg/dL (0.15-1.2); Total Protein 7.6 g/dL (6.6-8.7)
[2020-06-30] MEDS: pantoprazole DR 40 mg Tablet PO (08:28)
[2020-06-30] MEDS: montelukast sodium 10 mg Tablet PO (08:28)
[2020-06-30] MEDS: cholecalciferol (vitamin D3) 1,000 unit Tablet 1000 UNIT PO (08:28)
[2020-06-30] MEDS: apixaban 5 mg Tablet 2.5 MG PO ×2 (08:28→17:26)
[2020-06-30] MEDS: metoprolol tartrate 50 mg Tablet 25 MG PO ×2 (08:29→17:26)
[2020-06-30] MEDS: atorvastatin 40 mg Tablet PO (08:29)
--- NOTE | 2020-06-30 09:02 | P.PN_ITS ---
Subjective Subjective: Interval history: Chart reviewed, per vital signs, is not orthostatic. Remains on HHFNC with FiO2-70%, 45 L. Hemodynamically stable, afebrile. Very pleasant. Medications: Reviewed: Yes Medication Review Details: Active Medications Generic Name Dose Route Start Last Admin Trade Name Freq PRN Reason Stop Dose Admin Acetaminophen 650 mg 06/30/20 02:34 Acetaminophen 32 5 Mg Tablet PO Q6H PRN Mild/Mod Pain Or Temp >/= 101 Apixaban 2.5 mg 06/30/20 09:00 06/30/20 08:28 Apixaban 5 Mg Ta blet PO 2.5 mg BID KAY Administration Atorvastatin Calci um 40 mg 06/30/20 09:00 06/30/20 08:29 Atorvastatin 40 Mg Tablet PO 40 mg DAILY KAY Administration Bisacodyl 10 mg 06/30/20 02:34 Bisacodyl 5 Mg T ablet PO DAILY PRN CONSTIPATION Levofloxacin/Dextr ose 750 mg in 150 mls @ 100 mls/hr 06/30/20 06:00 06/30/20 07:14 Levaquin-D5w IV 100 mls/hr Q24H KAY Administration Protocol Metoprolol Tartrat e 25 mg 06/30/20 09:00 06/30/20 08:29 Metoprolol Tartr ate 50 Mg Tablet PO 25 mg BID KAY Administration Montelukast Sodium 10 mg 06/30/20 09:00 06/30/20 08:28 Montelukast Sodi um 10 Mg Tablet PO 10 mg DAILY KAY Administration Naloxone HCl 0.1 mg 06/30/20 02:34 Naloxone 0.4 Mg/ Ml Sdv IVP Q2M PRN OPIATERV Non-Formulary Medi cation 50 mg 06/30/20 09:00 Topiramate PO BID KAY Ondansetron HCl 4 mg 06/30/20 02:34 Ondansetron 2 Mg /Ml Sdv 2 Ml IVP Q8H PRN vomiting, or N/V if npo Pantoprazole Sodiu m 40 mg 06/30/20 09:00 06/30/20 08:[address] 40 Mg Tablet PO 40 mg DAILY KAY Administration Vitamin D 1,000 unit 06/30/20 09:00 06/30/20 08:28 Cholecalciferol (Vitamin D3) 1,000 Unit Tablet PO 1,000 unit DAILY KAY Administration hydromorphone [From Dilaudid] Allergy (Verified 10/04/19 09:40) UNK Vitals/I&O/Wt Last Vital Signs Temp 98.3 F 06/30/20 08:00 Pulse 100 06/30/20 08:00 Resp 18 06/30/20 08:00 BP 121/94 06/30/20 08:00 Pulse Ox 89 L 06/30/20 08:00 06/29/20 06/30/20 06/30/20 22:59 06:59 14:59 Intake Total 220 / 220 Output Total 450 / 450 Balance -230 / -230 Weight last 48 hrs Weight 89.811 kg Weight 90.718 kg Physical Exam Const: COMMON NORMALS: no acute distress, patient oriented x3 and alert GENERAL APPEARANCE: cooperative and comfortable NUTRITIONAL APPEARANCE: overweight ORIENTATION/CONSCIOUSNESS: Yes awake OTHER: -looks younger than stated age, very pleasant HENMT: COMMON NORMALS: normocephalic, atraumatic, hearing grossly normal bilaterally and moist oral mucous membranes HEAD & SCALP: normocephalic and atraumatic Eye: COMMON NORMALS: Equal, round and reactive pupils present, EOMs intact bilaterally and conjunctivae normal CONJUNCTIVA: Yes conjunctivae normal PUPIL: Yes Equal, round and reactive pupils present Neck/C-Spine: COMMON NORMALS: full ROM GENERAL: Yes normal visual inspection and Yes trachea midline Resp: COMMON NORMALS: normal respiratory effort, No retractions and No use of accessory muscles EFFORT & INSPECTION: Yes able to speak in complete sentence s, Yes symmetric chest movement and Yes tachypneic AUSCULTATION: diminished lung sounds bilateral OTHER: -on HHFNC, 70%, 45 L Cardio: COMMON NORMALS: regular rate, regular rhythm, S1 normal heart sound present, S2 normal heart sound present and No murmurs present (Cardio) RATE: regular rate RHYTHM: regular rhythm HEART SOUNDS: S1 normal heart sound present and S2 normal heart sound present GI: COMMON NORMALS: Normal to inspection, nondistended, normoactive bowel sounds present, Soft to palpation and non-tender INSPECTION: Yes central obesity PALPATION: Yes Soft to palpation Extremity: COMMON NORMALS: normal to inspection, full ROM and no clubbing, cyanosis or edema; negative for no pedal edema Neuro: COMMON NORMALS: patient oriented x3, moves all extremities, no focal motor deficits and no sensory deficits noted SENSORIUM/ORIENTATION: Yes alert Psych: COMMON NORMALS: mental status grossly normal, Normal thought process present, cooperative, normal affect and speech normal SPEECH: Yes normal speech THOUGHT PROCESS: Normal thought process present Skin: COMMON NORMALS: no rashes or lesions noted, no jaundice, no petechiae and no mottling GENERAL SKIN EXAM: no rashes or lesions noted Data : 06/30/20 06:12 06/30/20 06:12 A&P Assessment and plan (1) Respiratory failure with hypoxia: -noted to be quite hypoxic here, no hx of prior supplemental oxygen use -now requiring HHFNC, FiO2-70%, 45 L; wean as tolerated -close monitoring of respiratory status -could have some underlying fibrosis per CT; no evidence of PE -no known prior hx of underlying lung disease -unclear if he aspirated but though he was nauseous, no vomiting was noted; on empiric antibiotics -pulmonary toilet, IV steroids, neb treatments, IS. 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 -rapid COVID-19 test negative -will refer to Pulmonology as outpatient Status: Acute Qualifiers: Chronicity: acute Qualified Code(s): J96.01 - Acute respiratory failure with hypoxia (2) Syncope: -presentation is suspicious for vasovagal syncope -may have been precipitated by hypoxemia -negative orthostats -telemetry monitoring -Echo: EF=60%, G1DD, no RWMA, trace AR, mild TR -VSS; continue to monitor -fall precautions Status: Acute Qualifiers: Syncope type: unspecified Qualified Code(s): R55 - Syncope and collapse (3) DVT (deep venous thrombosis): -on Eliquis Status: Chronic Qualifiers: Affected thrombotic vein of extremity: unspecified vein of extremity Chronicity: chronic DVT location: lower extremity Laterality: unspecified laterality Qualified Code(s): I82.509 - Chronic embolism and thrombosis of unspecified deep veins of unspecified lower extremity (4) Dyslipidemia: -continue statin Status: Chronic (5) CVA (cerebrovascular accident): -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 -residual right sided weakness and R visual field defect -continue Eliquis, statin Status: Chronic Qualifiers: CVA mechanism: embolism Precerebral and cerebral artery: unspecified precerebral artery Qualified Code(s): I63.10 - Cerebral infarction due to embolism of unspecified precerebral artery (6) HTN (hypertension): -VSS; continue to monitor -continue BB Status: Chronic Qualifiers: Hypertension type: essential hypertension Qualified Code(s): I10 - Essential (primary) hypertension (7) VSD (ventricular septal defect): Status: Chronic Additional A&P Information -GERD; on PPI; s/p endoscopy in 05/2019 showing esophageal cancer and noted to have intramural blood with clot which was injected with epinephrine. Repeat endoscopy in 06/2019 showed mild chronic superficial patchy gastritis -hx of migraine headaches; continue topiramate -low salt diet as tolerated -GI ppx with PPI -DVT ppx not needed as on Eliquis -Dispo: home -Code status: FULL code Attestations Medical Necessity Statement*: Patient requires hospitalization for continued workup of syncope, management of acute hypoxic respiratory failure with high oxygen requirement. Time Spent in Patient Care: 16 - 35 minutes (>than 50% of time spent in counselling and/or direct pt care on unit) . 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 Editor Trailer for [facility] Fwd Exam Comprehensive Diagnoses Respiratory failure with hypoxia J96.01 Chronicity: acute Syncope R55 Syncope type: unspecified DVT (deep venous thrombosis) I82.509 Affected thrombotic vein of extremity: unspecified vein of extremity Chronicity: chronic DVT location: lower extremity Laterality: unspecified laterality Dyslipidemia E78.5 CVA (cerebrovascular accident) I63.10 CVA mechanism: embolism Precerebral and cerebral artery: unspecified precerebral artery HTN (hypertension) I10 Hypertension type: essential hypertension VSD (ventricular septal defect) Q21.0
--- NOTE | 2020-06-30 15:00 | PC.CHAP ---
Pastoral Care Encounter/Spiritual Assessment Type of Contact [] Declined firer powerhouse visit [] Patient/Family/Request visit [] Outpatient visit [] Follow-up visit [] Physician referral [] Code/Alert [] Routine visit [] Staff referral [] Actively dying [] Patient sleeping [] Family support [] [] Out of room [] Palliative care [] [] Receiving care in room [] Pre-surgical visit [] Trauma [] Long length of stay [] ICU visit [] Other: Relational/Emotional Strength [] Patient feels connected with others/family/visitors/staff [] Distress [] Loneliness/isolation [] Abandonment Spirituality of Patient [] Person of Roxanne [] Attends Baptism of their Roxanne [] Believes in Prayer [] Reads Bible or Denominational materials [] There are Spiritual issues to be addressed Cyber Crime Investigator Interventions [] Prayer [] Active listening [] Non-anxious presence [] Spiritual/emotional support [] Crisis/trauma care [] Spiritual counseling [] Bereavement support [] Provided bereavement packet [] Provided Bible/devotional materials [] Provided toy/stuffed animal, coloring book to patient or family member [] Provided Communion [] Anointing/[place] [] Salvation [] Completed spiritual assessment [] Other: Impact on Illness or Injury [] Angry [] Fearful [] Anxious [] Often cries [] Exhaustion [] Unable to work [] Unable to attend spiritism [] Unable to walk/stand [] Unable to read [] Unable to drive [] Unable to eat/drink [] Unable to sleep [] Unable to be with family [] Patient intubated [] Other: Summary Time spent with patient
[2020-06-30] MEDS: zolpidem 5 mg Tablet PO (22:22)
[2020-07-01] VITALS (65 sets, daily range): BP systolic 119–147; BP diastolic 77–94; PULSE 63–100; RESP 10–26; TEMP 36.3–36.5; O2SAT 86–97
[2020-07-01] MEDS: LORazepam 0.5 mg Tablet PO (04:32)
[2020-07-01 05:41] LABS: Basophils % 0.2 %; Eosinophils % 0.1 %; Hematocrit 45.2 % (42.0-52.0); Hemoglobin 15.4 g/dL (11.7-16.6); Lymphocytes # 1.4 10^3/uL (0.8-4.8); Lymphocytes % 15.4 %; Mean Corpuscular HGB Conc 34.1 g/dL (30.0-36.0); Mean Corpuscular Hemoglobin 30.9 pg (28.0-34.0); Mean Corpuscular Volume 90.6 fL (80-94); Mean Platelet Volume 11.6 fL (7.4-10.4); Monocytes # 0.2 10^3/uL (0.2-0.9); Monocytes % 2.4 %; Neutrophils # 7.64 10^3/uL (1.8-7.7); Neutrophils % 81.6 %; Nucleated Red Blood Cells % 0 %; Platelet Count 167 10^3/cmm (130-400); Red Blood Count 4.99 10^6/uL (4.1-5.3); Red Cell Distribution Width 13.3 % (12.1-15.1); White Blood Count 9.4 10^3/uL (4.0-10.0)
[2020-07-01 06:50] LABS: Alanine Aminotransferase 23 U/L (0-41); Albumin Level 4.5 g/dL (3.5-5.2); Alkaline Phosphatase 59 IU/L (40-130); Blood Urea Nitrogen 15 mg/dL (8-23); Calcium 9.8 mg/dL (8.5-10.5); Carbon Dioxide 16 mmol/L (22-29); Chloride 109 mmol/L (98-107); Globulin 3.4 g/dL (1.3-4.6); Glucose 161 mg/dL (65-115); Magnesium 2.1 mg/dL (1.7-2.3); Osmolality Calculated 290 mOsm/kg (285-295); Sodium 138 mmol/L (136-145); Thyroid Stimulating Hormone 0.63 uIU/mL (0.27-4.20); Total Bilirubin 0.5 mg/dL (0.15-1.2); Total Protein 7.9 g/dL (6.6-8.7)
[2020-07-01 07:12] LABS: Anion Gap 16.9 (5-19); Aspartate Amino Transferase 21 U/L (0-40); Potassium 3.9 mmol/L (3.5-5.1)
[2020-07-01] MEDS: levofloxacin-dextrose 5 % 750 MG/150 ML PREMIX 100 MG IV (08:04)
[2020-07-01] MEDS: pantoprazole DR 40 mg Tablet PO (08:52)
[2020-07-01] MEDS: metoprolol tartrate 50 mg Tablet 25 MG PO (08:52)
[2020-07-01] MEDS: atorvastatin 40 mg Tablet PO (08:52)
[2020-07-01] MEDS: montelukast sodium 10 mg Tablet PO (08:52)
[2020-07-01] MEDS: apixaban 5 mg Tablet 2.5 MG PO (08:52)
[2020-07-01] MEDS: cholecalciferol (vitamin D3) 1,000 unit Tablet 1000 UNIT PO (08:52)
--- NOTE | 2020-07-01 09:56 | P.PN_ITS ---
Subjective Subjective: Interval history: Remains on heated high flow, FiO2 of 50%, 45 L. Hemodynamically stable, afebrile. Labs stable. Has now been switched to 4 L NC and saturating in the mid to high 90s, no apparent distress, was too restless to sleep overnight. Quite anxious to go home. Will request home oxygen evaluation. Medications: Reviewed: Yes Medication Review Details: Active Medications Generic Name Dose Route Start Last Admin Trade Name Freq PRN Reason Stop Dose Admin Acetaminophen 650 mg 06/30/20 02:34 Acetaminophen 32 5 Mg Tablet PO Q6H PRN Mild/Mod Pain Or Temp >/= 101 Albuterol/Ipratrop ium 3 ml 06/30/20 09:10 Ipratropium-Albu terol 3 Ml Neb INHALATION Q6H PRN SHORTNESS OF GERALD TH Apixaban 2.5 mg 06/30/20 09:00 07/01/20 08:52 Apixaban 5 Mg Ta blet PO 2.5 mg BID KAY Administration Atorvastatin Calci um 40 mg 06/30/20 09:00 07/01/20 08:52 Atorvastatin 40 Mg Tablet PO 40 mg DAILY KAY Administration Bisacodyl 10 mg 06/30/20 02:34 Bisacodyl 5 Mg T ablet PO DAILY PRN CONSTIPATION Levofloxacin/Dextr ose 750 mg in 150 mls @ 100 mls/hr 06/30/20 06:00 07/01/20 08:04 Levaquin-D5w IV 100 mls/hr Q24H KAY Administration Protocol Lorazepam 0.5 mg 06/30/20 16:48 07/01/20 04:32 Lorazepam 0.5 Mg Tablet PO 0.5 mg TID PRN Administration ANXIETY Methylprednisolone Sodium Succinate 40 mg 06/30/20 09:15 07/01/20 08:51 Methylprednisolo ne Sod Succ 40 Mg/ Ml Inj IVP 40 mg Q8H KAY Administration Metoprolol Tartrat e 25 mg 06/30/20 09:00 07/01/20 08:52 Metoprolol Tartr ate 50 Mg Tablet PO 25 mg BID KAY Administration Montelukast Sodium 10 mg 06/30/20 09:00 12 08:52 Montelukast Sodi um 10 Mg Tablet PO 10 mg DAILY KAY Administration Naloxone HCl 0.1 mg 06/30/20 02:34 Naloxone 0.4 Mg/ Ml Sdv IVP Q2M PRN OPIATERV Non-Formulary Medi cation 50 mg 06/30/20 09:00 Topiramate PO BID KAY Ondansetron HCl 4 mg 06/30/20 02:34 Ondansetron 2 Mg /Ml Sdv 2 Ml IVP Q8H PRN vomiting, or N/V if npo Pantoprazole Sodiu m 40 mg 06/30/20 09:00 07/01/20 08:[address] 40 Mg Tablet PO 40 mg DAILY KAY Administration Vitamin D 1,000 unit 06/30/20 09:00 07/01/20 08:52 Cholecalciferol (Vitamin D3) 1,000 Unit Tablet PO 1,000 unit DAILY KAY Administration Zolpidem Tartrate 5 mg 06/30/20 16:48 06/30/20 22:22 Zolpidem 5 Mg Ta blet PO 5 mg BEDTIME PRN Administration insomnia hydromorphone [From Dilaudid] Allergy (Verified 10/04/19 09:40) UNK Vitals/I&O/Wt Last Vital Signs Temp 97.6 F 07/01/20 04:00 Pulse 90 07/01/20 07:51 Resp 18 07/01/20 07:51 BP 119/81 07/01/20 04:45 Pulse Ox 92 07/01/20 07:51 06/30/20 07/01/20 07/01/20 22:59 06:59 14:59 Intake Total 240 / 1090 360 / 360 Output Total 375 / 1225 250 / 1475 250 / 250 Balance -135 / -135 -250 / -385 110 / 110 Weight last 48 hrs Weight 89.834 kg Weight 89.811 kg Weight 90.718 kg Physical Exam Const: COMMON NORMALS: no acute distress, patient oriented x3 and alert GENERAL APPEARANCE: cooperative and comfortable NUTRITIONAL APPEARANCE: overweight ORIENTATION/CONSCIOUSNESS: Yes awake OTHER: -looks younger than stated age, very pleasant, sitting in chair by bedside HENMT: COMMON NORMALS: normocephalic, atraumatic, hearing grossly normal bilaterally and moist oral mucous membranes HEAD & SCALP: normocephalic and atraumatic Eye: COMMON NORMALS: Equal, round and reactive pupils present, EOMs intact bilaterally and conjunctivae normal CONJUNCTIVA: Yes conjunctivae normal PUPIL: Yes Equal, round and reactive pupils present Neck/C-Spine: COMMON NORMALS: full ROM GENERAL: Yes normal visual inspecti on and Yes trachea midline Resp: COMMON NORMALS: normal respiratory effort, No retractions and No use of accessory muscles EFFORT & INSPECTION: Yes able to speak in complete sentences, Yes symmetric chest movement and Yes tachypneic AUSCULTATION: diminished lung sounds bilateral OTHER: -on 4 L NC Cardio: COMMON NORMALS: regular rate, regular rhythm, S1 normal heart sound present, S2 normal heart sound present and No murmurs present (Cardio) RATE: regular rate RHYTHM: regular rhythm HEART SOUNDS: S1 normal heart sound present and S2 normal heart sound present GI: COMMON NORMALS: Normal to inspection, nondistended, normoactive bowel sounds present, Soft to palpation and non-tender INSPECTION: Yes central obesity PALPATION: Yes Soft to palpation Extremity: COMMON NORMALS: normal to inspection, full ROM and no clubbing, cyanosis or edema; negative for no pedal edema Neuro: COMMON NORMALS: patient oriented x3, moves all extremities, no focal motor deficits and no sensory deficits noted SENSORIUM/ORIENTATION: Yes alert Psych: COMMON NORMALS: mental status grossly normal, Normal thought process present, cooperative, normal affect and speech normal SPEECH: Yes normal speech THOUGHT PROCESS: Normal thought process present Skin: COMMON NORMALS: no rashes or lesions noted, no jaundice, no petechiae and no mottling GENERAL SKIN EXAM: no rashes or lesions noted Data : 07/01/20 04:58 07/01/20 04:58 A&P Assessment and plan (1) Respiratory failure with hypoxia: -noted to be quite hypoxic here, no hx of prior supplemental oxygen use -weaning oxygen requirement, down to 4 L NC -close monitoring of respiratory status -could have some underlying fibrosis per CT; no evidence of PE -no known prior hx of underlying lung disease -unclear if he aspirated but though he was nauseous, no vomiting was noted; on empiric antibiotics -pulmonary toilet, IV steroids, neb treatments, IS. 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 -rapid COVID-19 test negative -will refer to Pulmonology as outpatient -home oxygen evaluation prior to d/c Status: Acute Qualifiers: Chronicity: acute Qualified Code(s): J96.01 - Acute respiratory failure with hypoxia (2) Syncope: -presentation is suspicious for vasovagal syncope -may have been precipitated by hypoxemia -negative orthostats -telemetry monitoring -Echo: EF=60%, G1DD, no RWMA, trace AR, mild TR -VSS; continue to monitor -fall precautions Status: Acute Qualifiers: Syncope type: unspecified Qualified Code(s): R55 - Syncope and collapse (3) DVT (deep venous thrombosis): -on Eliquis Status: Chronic Qualifiers: Affected thrombotic vein of extremity: unspecified vein of extremity Chronicity: chronic DVT location: lower extremity Laterality: unspecified laterality Qualified Code(s): I82.509 - Chronic embolism and thrombosis of unspecified deep veins of unspecified lower extremity (4) Dyslipidemia: -continue statin Status: Chronic (5) CVA (cerebrovascular accident): -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 -residual right sided weakness and R visual field defect -continue Eliquis, statin Status: Chronic Qualifiers: CVA mechanism: embolism Precerebral and cerebral artery: unspecified precerebral artery Qualified Code(s): I63.10 - Cerebral infarction due to embolism of unspecified precerebral artery (6) HTN (hypertension): -VSS; continue to monitor -continue BB Status: Chronic Qualifiers: Hypertension type: essential hypertension Qualified Code(s): I10 - Essential (primary) hypertension (7) VSD (ventricular septal defect): Status: Chronic Additional A&P Information -GERD; on PPI; s/p endoscopy in 05/2019 showing esophageal cancer and noted to have intramural blood with clot which was injected with epinephrine. Repeat end oscopy in 06/2019 showed mild chronic superficial patchy gastritis -hx of migraine headaches; continue topiramate -low salt diet as tolerated -GI ppx with PPI -DVT ppx not needed as on Eliquis -Dispo: home -Code status: FULL code Attestations Medical Necessity Statement*: Discharge home today. Time Spent in Patient Care: 16 - 35 minutes (>than 50% of time spent in counselling and/or direct pt care on unit) . Coding Level of Care Code Acute Studio Potter for [facility] Fwd Exam Comprehensive Diagnoses Respiratory failure with hypoxia J96.01 Chronicity: acute Syncope R55 Syncope type: unspecified DVT (deep venous thrombosis) I82.509 Affected thrombotic vein of extremity: unspecified vein of extremity Chronicity: chronic DVT location: lower extremity Laterality: unspecified laterality Dyslipidemia E78.5 CVA (cerebrovascular accident) I63.10 CVA mechanism: embolism Precerebral and cerebral artery: unspecified precerebral artery HTN (hypertension) I10 Hypertension type: essential hypertension VSD (ventricular septal defect) Q21.0
--- NOTE | 2020-07-01 11:25 | PC.CHAP ---
Pastoral Care Encounter/Spiritual Assessment Type of Contact [] Declined fire alarm inspector visit [] Patient/Family/Request visit [] Outpatient visit [X] Follow-up visit [] Physician referral [] Code/Alert [] Routine visit [] Staff referral [] Actively dying [] Patient sleeping [] Family support [] [X] Out of room [] Palliative care [] [] Receiving care in room [] Pre-surgical visit [] Trauma [] Long length of stay [] ICU visit [] Other: Relational/Emotional Strength [] Patient feels connected with others/family/visitors/staff [] Distress [] Loneliness/isolation [] Abandonment Spirituality of Patient [] Person of Roxanne [] Attends Druze of their Roxanne [] Believes in Prayer [] Reads Bible or Pentecostalism materials [] There are Spiritual issues to be addressed Mixer Crane Operator Interventions [] Prayer [] Active listening [] Non-anxious presence [] Spiritual/emotional support [] Crisis/trauma care [] Spiritual counseling [] Bereavement support [] Provided bereavement packet [] Provided Bible/devotional materials [] Provided toy/stuffed animal, coloring book to patient or family member [] Provided Communion [] Anointing/[place] [] Salvation [] Completed spiritual assessment [] Other: Impact on Illness or Injury [] Angry [] Fearful [] Anxious [] Often cries [] Exhaustion [] Unable to work [] Unable to attend yazidi [] Unable to walk/stand [] Unable to read [] Unable to drive [] Unable to eat/drink [] Unable to sleep [] Unable to be with family [] Patient intubated [] Other: Summary Time spent with patient
--- NOTE | 2020-07-01 13:10 | P.DS_ITS ---
Discharge Providers Date of Admission: 06/30/20 01:18 Date of Discharge: July 01, 2020 Attending Provider at Admission: Milo Cortez MD Attending Provider at Discharge: Lisa Arenas MD Consults: None Primary Care Provider: Heather Mcgovern Diagnoses at Discharge Discharge Diagnosis (1) Respiratory failure with hypoxia: Status: Resolved Permanent problem details: -noted to be quite hypoxic here, no hx of prior supplemental oxygen use -weaning oxygen requirement, down to 4 L NC -close monitoring of respiratory status -could have some underlying fibrosis per CT; no evidence of PE -no known prior hx of underlying lung disease -unclear if he aspirated but though he was nauseous, no vomiting was noted; on empiric antibiotics -pulmonary toilet, IV steroids, neb treatments, IS. 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 -rapid COVID-19 test negative -will refer to Pulmonology as outpatient -home oxygen evaluation done prior to d/c; does not qualify for oxygen Qualifiers: Chronicity: acute Qualified Code(s): J96.01 - Acute respiratory failure with hypoxia (2) Syncope: Status: Acute Permanent problem details: -presentation is suspicious for vasovagal syncope -may have been precipitated by hypoxemia -negative orthostats -telemetry monitoring -Echo: EF=60%, G1DD, no RWMA, trace AR, mild TR -VSS; continue to monitor -fall precautions Qualifiers: Syncope type: unspecified Qualified Code(s): R55 - Syncope and collapse (3) DVT (deep venous thrombosis): Status: Chronic Permanent problem details: -on Eliquis Qualifiers: DVT location: lower extremity Affected thrombotic vein of extremity: unspecified vein of extremity Chronicity: chronic Laterality: unspecified laterality Qualified Code(s): I82.509 - Chronic embolism and thrombosis of unspecified deep veins of unspecified lower extremity (4) Dyslipidemia: Status: Chronic Permanent problem details: -on statin (5) CVA (cerebrovascular accident): Status: Chronic Permanent problem details: -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 -residual right sided weakness and R visual field defect -continue Eliquis, statin Qualifiers: CVA mechanism: embolism Precerebral and cerebral artery: unspecified precerebral artery Qualified Code(s): I63.10 - Cerebral infarction due to embolism of unspecified precerebral artery (6) HTN (hypertension): Status: Chronic Permanent problem details: -VSS; continue to monitor -continue BB Qualifiers: Hypertension type: essential hypertension Qualified Code(s): I10 - Essential (primary) hypertension (7) VSD (ventricular septal defect): Status: Chronic Other Information Additional DC diagnoses/information: -GERD; on PPI; s/p endoscopy in 05/2019 showing esophageal cancer and noted to have intramural blood with clot which was injected with epinephrine. Repeat endoscopy in 06/2019 showed mild chronic superficial patchy gastritis -hx of migraine headaches; continue topiramate Reason for Visit Reason for Visit: PASSING OUT Hospital Course Hospital Course Patient was [facility] to the [facility] stepdown [facility] had presented following an episode of syncope and was found to have severe hypoxemia with high oxygen requirement initially. Work-up included ABG, chest x-ray, CT scan as noted above. Oxygen requirement has gradually improved and as of this morning he was on 4 L nasal cannula. There was some suspicion initially about potential aspiration so he has been on empiric antibiotic therapy as well as IV steroids and nebulizer treatments. He has consistently been afebrile and hemodynamically stable. He is not oxygen dependent at baseline and is quite eager to be discharged home today so home O2 eval done today and quite surprisingly he does not qualify for oxygen at this time. 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 He will be referred to pulmonology for further evaluation. Echo was done as reported above with no significant abnormalities noted. He has a known VSD, likely very small and has already been evaluated by cardiology earlier this year, no need for surgical repair. Medications are to be continued as reflected below. Patient is advised to seek medical attention immediately should he have recurrent syncope, worsening shortness of breath. He will need appropriate follow-up with his primary care provider. Physical Exam Const: COMMON NORMALS: no acute distress, patient oriented x3 and alert GENERAL APPEARANCE: cooperative and comfortable NUTRITIONAL APPEARANCE: overweight ORIENTATION/CONSCIOUSNESS: Yes awake OTHER: -looks younger than stated age, very pleasant, sitting in chair by bedside HENMT: COMMON NORMALS: normocephalic, atraumatic, hearing grossly normal bilaterally and moist oral mucous membranes HEAD & SCALP: normocephalic and atraumatic Eye: COMMON NORMALS: Equal, round and reactive pupils present, EOMs intact bilaterally and conjunctivae normal CONJUNCTIVA: Yes conjunctivae normal PUPIL: Yes Equal, round and reactive pupils present Neck/C-Spine: COMMON NORMALS: full ROM GENERAL: Yes normal visual inspection and Yes trachea midline Resp: COMMON NORMALS: normal respiratory effort, No retractions and No use of accessory muscles EFFORT & INSPECTION: Yes able to speak in complete sentences, Yes symmetric chest movement and Yes tachypneic AUSCULTATION: diminished lung sounds bilateral OTHER: -on 4 L NC Cardio: COMMON NORMALS: regular rate, regular rhythm, S1 normal heart sound present, S2 normal heart sound present and No murmurs present (Cardio) RATE: regular rate RHYTHM: regular rhythm HEART SOUNDS: S1 normal heart sound present and S2 normal heart sound present GI: COMMON NORMALS: Normal to inspection, nondistended, normoactive bowel sounds present, Soft to palpation and non-tender INSPECTION: Yes central obesity PALPATION: Yes Soft to palpation Extremity: COMMON NORMALS: normal to inspection, full ROM and no clubbing, cyanosis or edema; negative for no pedal edema Neuro: COMMON NORMALS: patient oriented x3, moves all extremities, no focal motor deficits and no sensory deficits noted SENSORIUM/ORIENTATION: Yes alert Psych: COMMON NORMALS: mental status grossly normal, Normal thought process present, cooperative, normal affect and speech normal SPEECH: Yes normal speech THOUGHT PROCESS: Normal thought process present Skin: COMMON NORMALS: no rashes or lesions noted, no jaundice, no petechiae and no mottling GENERAL SKIN EXAM: no rashes or lesions noted Discharge Data Data Completed and Pending: Completed Studies During Hospitalization Category Date Time Status CT angio chest PE protcl [id number] Urge nt Cat Scan 06/29/20 23:29 Completed XR chest 1V jessica ble [id number] Stat Exams 06/29/20 22:55 Completed CV echo complete* [id number] Routine Ultrasound 06/30/20 02:43 Completed Pending at discharge Category Date Time Status ABG ROOM AIR [Art erial Blood Gas Ro om Air] Stat Lab 06/30/20 00:00 Results Complete Blood Co unt w/Auto AM LABS Lab 07/02/20 04:00 Ordered Complete Blood Co unt w/Auto AM LABS Lab 07/03/20 04:00 Ordered Comprehensive Met abolic Panel AM LA BS Lab 07/02/20 04:00 Ordered Comprehensive Met abolic Panel AM LA BS Lab 07/03/20 04:00 Ordered Magnesium AM LABS Lab 07/02/20 04:00 Ordered Magnesium AM LABS Lab 07/03/20 04:00 Ordered Labs from last 24 hours 07/01/20 07/01/20 04:58 04:58 WBC 9.4 RBC 4.99 Hgb 15.4 Hct 45.2 MCV 90.6 MCH 30.9 MCHC 34.1 RDW 13.3 Plt Count 167 MPV 11.6 H Neut % (Auto) 81.6 Lymph % (Auto) 15.4 [place] % (Auto) 2.4 Eos % (Auto) 0.1 Baso % (Auto) 0.2 Neut # (Auto) 7.64 Lymph # (Auto) 1.4 [place] # (Auto) 0.2 Eos # (Auto) 0.0 Baso # (Auto) 0.0 Nucleated RBC % (a uto) 0 Nucleated RBCs # 0.0 Sodium 138 Potassium 3.9 Chloride 109 H Carbon Dioxide 16 L Anion Gap 16.9 BUN 15 Creatinine 0.9 GFR Calculation Not Reportable Glucose 161 H Calculated Osmolal ity 290 Calcium 9.8 Magnesium 2.1 Total Bilirubin 0.5 AST 21 ALT 23 Alkaline Phosphata se 59 Total Protein 7.9 Albumin 4.5 Globulin 3.4 TSH 0.63 Vitals: Last Vital Signs Temp 97.6 F 07/01/20 11:47 Pulse 76 07/01/20 11:47 Resp 14 07/01/20 11:47 BP 137/87 07/01/20 11:47 Pulse Ox 92 07/01/20 11:47 Discharge Plan Discharge Patient Disposition: Home Condition: Stable Prescriptions: New levofloxacin 750 mg tablet 750 mg PO DAILY 7 Days Qty: 7 RF: 0 prednisone 20 mg tablet 20 mg PO BID 5 Days Qty: 10 RF: 0 budesonide-formoterol 160-4.5 mcg/actuation HFA aerosol inhaler 2 inh inhalation BID Qty: 10.2 RF: 0 ProAir HFA 90 mcg/actuation HFA aerosol inhaler 2 inh inhalation Q6H PRN (Reason: shortness of breath or wheezing) Qty: 8.5 RF: 0 Continued atorvastatin 40 mg tablet 40 mg PO DAILY@18 RF: 0 metoprolol tartrate 50 mg tablet 25 mg PO Q12H RF: 0 montelukast 10 mg tablet 10 mg PO DAILY@1800 RF: 0 potassium citrate 10 mEq (1,080 mg) tablet extended release 10 meq PO BID@18 RF: 0 topiramate 50 mg capsule,extended release 24hr 50 mg PO BID@18 RF: 0 cholecalciferol (vitamin D3) 25 mcg (1,000 unit) capsule 1,000 unit PO DAILY@06 RF: 0 pantoprazole 40 mg tablet,delayed release (DR/EC) 40 mg PO DAILY@06 RF: 0 apixaban 5 mg tablet 2.5 mg PO BID@18 RF: 0 omega 3-bgl-rna-fish oil 1,000 mg (120 mg-180 mg) capsule 1 cap PO DAILY@06 RF: 0 PreserVision AREDS 1 tab PO BID@18 RF: 0 Discharge Orders: Discharge Order (Routine); Ordered 07/01/20 Ordered By: Lisa Arenas Referrals: CarlitorMario MD [Physician] - 1 week (Patient with noted severe hypoxemia, 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 ) Magalis Mcgovern, [employer] HELPER[employer] [Nurse Practitioner] - 4-7 days Discharge Diet: Advance as tolerated and Cardiac Discharge Activity: Increase activity as tolerated Discharge Attestations Time Spent in Discharge Care*: greater than 30 min Specific Discharge Activities: educating patient, documenting/other paperwork and evaluating patient/reviewing data Status at Discharge: Cognitive status at discharge: cognitively intact , Behavioral status at discharge: cooperative and independent in ADL's , Functional status at discharge: independent ambulation Overall status at discharge: patient is progressing back to baseline Quality Metrics Clinical Quality Measures During this hospital stay, did patient experience: None Coding Level of Care Code 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
--- NOTE | 2020-07-01 13:57 | PC.NURSE ---
discharge instructions given, pt verbalized an understanding. iv removed, tip intact, tolerated well.
[2020-07-01 15:38] LABS: Blood Gas Allen Test POS
== END 2020-07-01 13:57 | disposition home or self-care (01) | DRG 189 ==
LOC: ER 22:29 → CSU 06-30 01:56
PROVIDERS: Admitting Provider Internal Medicine; Emergency Provider Emergency Medicine; Visit Provider Family Medicine
DX: J96.01 Acute respiratory failure with hypoxia (principal); J69.0 Pneumonitis due to inhalation of food and vomit; Q21.0 Ventricular septal defect; I69.951 Hemiplegia and hemiparesis following unspecified cerebrovascular disease affecting right dominant side; R55 Syncope and collapse; Z86.718 Personal history of other venous thrombosis and embolism; Z79.01 Long term (current) use of anticoagulants; I71.4 Abdominal aortic aneurysm, without rupture; K57.90 Diverticulosis of intestine, part unspecified, without perforation or abscess without bleeding; E78.5 Hyperlipidemia, unspecified; Z87.11 Personal history of peptic ulcer disease; Z87.442 Personal history of urinary calculi; I10 Essential (primary) hypertension; I69.998 Other sequelae following unspecified cerebrovascular disease; H53.9 Unspecified visual disturbance; G43.909 Migraine, unspecified, not intractable, without status migrainosus; J84.10 Pulmonary fibrosis, unspecified; Z85.01 Personal history of malignant neoplasm of esophagus
CPT/HCPCS: 12345; 36415; 36600; 71045; 71275; 80053; 81003; 82803; 83735; 84443; 84484; 85025; 85610; 85730; 87426; 93005; 93306; 96375; 97161; 97530; 99283; J1956; J2920; Q9967

== ENCOUNTER → 2020-07-13 11:41 | Outpatient (BNVA) | payer MEDICARE, OTHER, SELFPAY | PROVIDERS: PCP Family Medicine; Visit Provider Internal Medicine Pulmonary Disease | DX: R06.02 Shortness of breath (principal); Z20.828 Contact with and (suspected) exposure to other viral communicable diseases | CPT/HCPCS: 87635 ==

== ENCOUNTER → 2020-07-17 14:43 | Outpatient (BNVA) | payer MEDICARE, OTHER, SELFPAY | PROVIDERS: PCP Family Medicine; Visit Provider Specialist | DX: R55 Syncope and collapse (principal); R56.9 Unspecified convulsions; R11.0 Nausea | CPT/HCPCS: 95816 ==

== ENCOUNTER 2020-07-18 14:00 | Outpatient (CLI) | payer MEDICARE, OTHER, SELFPAY ==
--- NOTE | 2020-07-18 14:36 | PFTS_ITS ---
Date of Study:07/18/20 Date of Dictation: 07/19/2020 MECHANICS: Forced vital capacity (FVC) is normal. Forced expiratory volume in one second (FEV1) is normal. FEV1/FVC is normal. FLOW VOLUME LOOP: Normal . LUNG VOLUMES: Total lung capacity (TLC) is normal. Residual volume (RV) is normal. DIFFUSING CAPACITY FOR CARBON MONOXIDE: Normal . INTERPRETATION: The PFTs are normal. MTDD
== END 2020-07-18 14:01 | disposition home or self-care (01) ==
LOC: RT 14:05
PROVIDERS: PCP Family Medicine; Visit Provider Internal Medicine Pulmonary Disease
DX: R06.02 Shortness of breath (principal)
CPT/HCPCS: 94010; 94726; 94729

== ENCOUNTER 2020-09-03 12:52 | Outpatient (CLI) | payer MEDICARE, OTHER, SELFPAY ==
--- NOTE | 2020-09-03 13:00 | XR_ITS ---
WS: [id number] CERVICAL SPINE 3 VIEWS HISTORY: neck pain COMPARISON: None available. Advanced degenerative disc space narrowing at C5-6 and C6-7. Endplate osteophytes extend anterior and posterior. 2 mm anterolisthesis of C4 and C5. Facet joint arthritis at C6-7. C1 and C2 are aligned. Odontoid is intact. Soft tissues are normal. XR/XR cervical spine 3V* [id number] IMPRESSION: 1. Advanced degenerative spondylosis in the cervical spine, most significant a t C5-6 and C6-7. 2. Bilateral facet joint arthritis.
--- NOTE | 2020-09-03 13:20 | MR_ITS ---
WS: [id number] MRA ANGIOGRAPHY [place] OF [place] HISTORY: syncope COMPARISON: None available. TECHNIQUE: 3-D MR angiography is performed of the [place] of [place]. All images are reviewed including source images. Distal RIGHT vertebral artery is not identified and may be hypoplastic or absent. LEFT vertebral lindy ry is patent. Normal basilar artery. Posterior cerebral arteries are both patent. P1 segments are sma ll caliber but patent. RIGHT posterior communicating artery is dominant. Normal intracranial carotid arteries. No aneurysms or occlusions. Middle cerebral and anterior cerebr al arteries are patent. No atherosclerotic plaque. Anterior cerebral arteries are normal. Prior LEFT occipital lobe infarct. MR/MR angio head wo con [id number] IMPRESSION: 1. 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 2. No significant occlusions or aneurysms. No significant stenosis. 3. Remote LEFT occipital lobe infarct.
== END 2020-09-03 12:53 | disposition home or self-care (01) ==
PROVIDERS: PCP Family Medicine; Visit Provider Internal Medicine Pulmonary Disease
DX: R55 Syncope and collapse (principal); I63.10 Cerebral infarction due to embolism of unspecified precerebral artery; M47.812 Spondylosis without myelopathy or radiculopathy, cervical region; M13.88 Other specified arthritis, other site
CPT/HCPCS: 70544; 72040

== ENCOUNTER 2020-10-03 09:21 | Outpatient (CLI) | payer MEDICARE, OTHER, SELFPAY ==
--- NOTE | 2020-10-03 09:15 | XR_ITS ---
WS: [id number] KUB, AP view, 10/03/2020 Clinical Data: UROLITHIASIS Comparison: KUB 10/04/2019. Findings: No definite renal or ureteral calculi are seen. There are phleboliths in the true pelvis. There is os teoarthritic change of the lower thoracic and entire lumbar spine. The bowel gas pattern is not remarkable. XR/XR KUB [id number] Impression: Negative KUB.
== END 2020-10-03 09:22 | disposition home or self-care (01) ==
LOC: RAD 09:26
PROVIDERS: PCP Family Medicine; Visit Provider Urology
DX: N20.9 Urinary calculus, unspecified (principal)
CPT/HCPCS: 74018; 81003

== ENCOUNTER → 2020-10-29 12:53 | Outpatient (BNVA) | payer MEDICARE, OTHER, SELFPAY | PROVIDERS: PCP Family Medicine; Visit Provider Nurse Practitioner | DX: M25.569 Pain in unspecified knee (principal); M25.461 Effusion, right knee; M19.90 Unspecified osteoarthritis, unspecified site | CPT/HCPCS: 73562 ==

== ENCOUNTER 2021-02-06 06:00 | Outpatient (RCR) | payer MEDICARE, OTHER, SELFPAY | END 2021-02-23 23:59 | disposition home or self-care (01) | LOC: APT 06:00 | PROVIDERS: PCP Nurse Practitioner; Referring Provider Nurse Practitioner; Visit Provider Nurse Practitioner | DX: I69.90 Unspecified sequelae of unspecified cerebrovascular disease (principal) | CPT/HCPCS: 97110; 97163; 97164 ==

== ENCOUNTER 2021-02-11 16:00 | Emergency (ER) | payer OTHER, MEDICARE, SELFPAY ==
[2021-02-11 16:15] VITALS: BP 142/90; PULSE 76; RESP 16; TEMP 36.6; O2SAT 98; BMI 25.1
--- NOTE | 2021-02-11 16:19 | XRR_ITS ---
PROCEDURE INFORMATION: Exam: XR Chest Exam date and time: 02/11/2021 4:19 PM Age: 75 years old Clinical indication: Patient HX: Syncope, n/v x today, HX heart issues w/ syncope; Additional info: Syncope; N/v TECHNIQUE: Imaging protocol: XR of the chest. Views: 1 view. Total images: 1 COMPARISON: CR XR chest 1V portable [id number] 06/29/2020 11:17 PM FINDINGS: Lungs: No visible active interstitial or alveolar airspace disease. Evidence of antecedent granulomatous disease. Pleural spaces: Unremarkable. No pleural effusion. No pneumothorax. Heart/Mediastinum: Cardiac structures and configuration with arteriosclerosis. Bones/joints: Unremarkable. XR/XR chest 1V portable [id number] IMPRESSION: Nonacute.
--- NOTE | 2021-02-11 16:20 | ECG_ITS ---
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 Measurements Intervals [place] Rate: 78 P: 28 [place]: 154 QRS: 1 QRSD: 108 T: 1 QT: 392 QTc: 449 Interpretive Statements SINUS RHYTHM MINIMAL ST DEPRESSION [0.025+ mV ST DEPRESSION] Compared to ECG 06/29/2020 23:11:16 No significant changes Electronically Signed On 02-11-2021 19:01:50 CDT by Georgie Granados M.D. [id number]
--- NOTE | 2021-02-11 18:20 | ECG_ITS ---
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 Measurements Intervals [place] Rate: 85 P: 24 MS: 144 QRS: 20 QRSD: 101 T: 18 QT: 386 QTc: 461 Interpretive Statements SINUS RHYTHM MINIMAL ST DEPRESSION [0.025+ mV ST DEPRESSION] Compared to ECG 02/11/2021 16:30:58 No significant changes Electronically Signed On 02-12-2021 16:51:50 CDT by Kristal Pimentel M.D. [email or web address]
[2021-02-11 19:45] VITALS: BP 134/89; PULSE 75; RESP 14; O2SAT 96
--- NOTE | 2021-02-11 19:47 | ED_ITS ---
HPI - Syncope General: Chief Complaint: Syncope Stated Complaint: Syncope, n/v Time Seen by Provider: 02/11/21 19:47 History of Present Illness: HPI narrative: 75-year-old male patient comes in today with an episode of syncope. Patient has a history of syncopal episodes which was he thought fixed after he had a hole in the chamber of his heart fixed in [place]. Patient since then has not had any problems with these episodes of syncope until today. Patient was over at the clinic in [place] to have physical therapy and became nauseous and sick to his stomach and then sat down and had an episode. Patient was recommended to come to the ER for evalua tion. Patient reports feeling fine at this time. Patient is alert and oriented. Patient has had a history of a CVA, AAA, VSD with repair, osteoarthritis, urolithiasis. complaint: loss of consciousness -: second(s) Prodromal symptoms: nausea/vomiting Context: standing up Injuries sustained associated with event: none Associated symptoms: Reports lightheadedness History: seizure disorder, previous syncopal episode and history of CAD Treatments prior to arrival: other (VSD repair, temporary pacemaker) Review of Systems General: Reports: 10 or more systems reviewed and unremarkable except in HPI and below Card: Reports: lightheadedness and syncope [facility] ED PFSH: Medical History Abdominal aortic aneurysm (AAA) Acid reflux CVA (cerebrovascular accident) -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 -residual right sided weakness and R visual field defect -continue Eliquis, statin Diverticulosis Dizzy DVT (deep venous thrombosis) -on Eliquis Dyslipidemia -on statin Environmental and seasonal allergies Gross hematuria Head ache Hemiparesis Hiatal hernia HTN (hypertension) -VSS; continue to monitor -continue BB Insomnia Interstitial lung disease Migraine Peptic ulcer disease Urolithiasis Vitamin D deficiency VSD (ventricular septal defect) Surgical History H/O lithotripsy 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 2020 [place], [place] History of cataract surgery bilateral Family History Mother , at age 91 Lung disease Father , 36-MVA No problems noted. Brother CAD (coronary artery disease) Chronic kidney disease (CKD) Lung disease Sister Cancer Chronic kidney disease (CKD) Family/Other Lung disease Denies family history of Diabetes Clotting disorder Dementia Suicide Anesthesia complication Bleeding disorder Stroke Social History Second hand smoke exposure: No Smoking risk assessment/counseling performed?: Yes Alcohol intake: never Desire information about alcohol rehabilitation?: No Counseling given: No Desire information about substance/drug rehabilitation?: No Adopted: No Caregiver/support person: No Lives independently: Yes Household members: spouse Housing: House Marital status: service: Yes status details: 4 YEARS branch: [employer] 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 Pets and animals: Yes History of recent travel: No Current gender identity: Male Physical Exam Const: COMMON NORMALS: no acute distress and patient oriented x3 GENERAL APPEARANCE: cooperative HENMT: COMMON NORMALS: normocephalic and Normal external nose present HEAD & SCALP: normal to inspection and normocephalic NOSE: Normal external nose present MOUTH: Normal oral and palatal mucosa present THROAT: posterior oropharynx normal Eye: GENERAL EYE: appearance normal, both eyes and all related structures Neck/C-Spine: COMMON NORMALS: full ROM Lymph: LYMPHATIC: no lymphadenopathy noted Chest: COMMONS NORMALS: normal inspection of the chest Resp: COMMON NORMALS: normal respiratory effort EFFORT & INSPECTION: Yes able to speak in complete sentences Cardio: COMMON NORMALS: regular rate and regular rhythm RATE: regular rate RHYTHM: regular rhythm GI: COMMON NORMALS: non-tender Back/Pelvis: COMMON NORMALS: thoracic and lumbar spine normal to inspection Extremity: COMMON NORMALS: normal to inspection Neuro: COMMON NORMALS: patient oriented x3 and moves all extremities Psych: COMMON NORMALS: mental status grossly normal and cooperative Skin: COMMON NORMALS: no rashes or lesions noted GENERAL SKIN EXAM: no rashes or lesions noted Course ED course: 2049, first troponin came back at 26. I discussed with the patient recommending that we repeat the second troponin at 2 hours. Patient reported understanding. Vital Signs: Vital signs: Vital Signs Temperature 98 F 02/11/21 16:15 Pulse Rate 72 02/11/21 20:02 Respiratory Rate 14 02/11/21 19:45 Blood Pressure 129/85 02/11/21 20:02 Pulse Oximetry 96 02/11/21 19:45 MDM - Syncope MDM Narrative: Medical decision making narrative: Patient comes in today with concern for syncopal event. Patient had a VSD repair done about 6 to 8 months ago which he thought was the cause for his syncope. Patient reports that he had been doing well up until today when he was going to get physical therapy done on his knee. Patient became nauseous and lightheaded and then had a short episode of fainting. It was reported as less than a minute. Patient recovered and feels fine at this time. Patient reports this is similar to his previous events. Patient reports that when he had the events at [place] when he was visiting his daughter that was when they felt that the VSD was causing this and they shipped him to [place] and he had the repair. Patient denies any chest pain or other symptoms at this time. Exam notes to normal heart tones, clear lung sounds, no edema in the extremities, normal orthostatic vital signs. Differential diagnosis includes not limited to dehydration, seizure type disorder, arrhythmia. Laboratory tests come back unremarkable. Patient did have a troponin that was 26 and at the 2-hour ronda it went up to 27 but this was not significant on the delta curve. The remainder of his labs were insignificant. I think the patient may have a an underlying arrhythmia that we are not catching possible A. fib or some other abnormality and may be necessary for patient to be placed on a Holter monitor. I put in a case management referral to cardiology for further treatment and evaluation. Patient reported understanding agreed to plan. Lab Data: Labs: Lab Results 02/11/21 02/11/21 02/11/21 Range/Units 19:27 19:27 19:27 WBC 7.4 (4.0-10.0) 10^3/ uL RBC 4.28 (4.1-5.3) 10^6/u L Hgb 13.2 (11.7-16.6) g/dL Hct 41.5 L (42.0-52.0) % MCV 97.0 H (80-94) fL MCH 30.8 (28.0-34.0) pg MCHC 31.8 (30.0-36.0) g/dL RDW 12.9 (12.1-15.1) % Plt Count 196 (130-400) 10^3/c mm MPV 9.8 (7.4-10.4) fL Neut % (Auto) 49.9 % Lymph % (Auto) 41.3 % Randall % (Auto) 6.5 % Eos % (Auto) 1.2 % Baso % (Auto) 0.8 % Neut # (Auto) 3.69 (1.8-7.7) 10^3/u L Lymph # (Auto) 3.1 (0.8-4.8) 10^3/u L Randall # (Auto) 0.5 (0.2-0.9) 10^3/u L Eos # (Auto) 0.1 (0.0-0.8) 10^3/u L Baso # (Auto) 0.1 (0.0-0.1) 10^3/u L Nucleated RBC % (a uto) 0 % Nucleated RBCs # 0.0 /100WBC Sodium 141 (136-145) mmol/L Potassium 3.7 (3.5-5.1) mmol/L Chloride 108 H (98-107) mmol/L Carbon Dioxide 21 L (22-29) mmol/L Anion Gap 15.7 (5-19) BUN 9 (8-23) mg/dL Creatinine 0.6 L (0.7-1.2) mg/dL GFR Calculation Not Reportable Glucose 98 (65-115) mg/dL Calculated Osmolal ity 291 (285-295) mOsm/k g Calcium 9.3 (8.5-10.5) mg/dL Total Bilirubin 0.4 (0.15-1.2) mg/dL AST 20 (0-40) U/L ALT 16 (0-41) U/L Alkaline Phosphata se 65 (40-130) IU/L Troponin T Baselin e 26 H (0-15) ng/L Troponin T 120 Min [place] (0-15) ng/L Delta Troponin T (0-10) ABS# Total Protein 6.8 (6.6-8.7) g/dL Albumin 4.2 (3.5-5.2) g/dL Globulin 2.6 (1.3-4.6) g/dL 02/11/21 Range/Units 21:06 WBC (4.0-10.0) 10^3/ uL RBC (4.1-5.3) 10^6/u L Hgb (11.7-16.6) g/dL Hct (42.0-52.0) % MCV (80-94) fL MCH (28.0-34.0) pg MCHC (30.0-36.0) g/dL RDW (12.1-15.1) % Plt Count (130-400) 10^3/c mm MPV (7.4-10.4) fL Neut % (Auto) % Lymph % (Auto) % Randall % (Auto) % Eos % (Auto) % Baso % (Auto) % Neut # (Auto) (1.8-7.7) 10^3/u L Lymph # (Auto) (0.8-4.8) 10^3/u L Randall # (Auto) (0.2-0.9) 10^3/u L Eos # (Auto) (0.0-0.8) 10^3/u L Baso # (Auto) (0.0-0.1) 10^3/u L Nucleated RBC % (a uto) % Nucleated RBCs # /100WBC Sodium (136-145) mmol/L Potassium (3.5-5.1) mmol/L Chloride (98-107) mmol/L Carbon Dioxide (22-29) mmol/L Anion Gap (5-19) BUN (8-23) mg/dL Creatinine (0.7-1.2) mg/dL GFR Calculation Glucose (65-115) mg/dL Calculated Osmolal ity (285-295) mOsm/k g Calcium (8.5-10.5) mg/dL Total Bilirubin (0.15-1.2) mg/dL AST (0-40) U/L ALT (0-41) U/L Alkaline Phosphata se (40-130) IU/L Troponin T Baselin e (0-15) ng/L Troponin T 120 Min [place] 27.00 H (0-15) ng/L Delta Troponin T 1.00 (0-10) ABS# Total Protein (6.6-8.7) g/dL Albumin (3.5-5.2) g/dL Globulin (1.3-4.6) g/dL Discharge Plan Discharge Patient Disposition: Home Clinical Impression: Syncope, effort Condition: Stable Prescriptions: No Action potassium citrate 10 mEq (1,080 mg) tablet extended release 10 meq PO BID@06,18 RF: 0 mupirocin 2 % ointment 1 applic topical BID RF: 0 Eliquis 5 mg tablet 5 mg PO BID Qty: 120 RF: 0 atorvastatin 40 mg tablet 40 mg PO DAILY@18 Qty: 90 RF: 0 clopidogrel [Plavix] 75 mg tablet 75 mg PO DAILY Qty: 90 RF: 0 cholecalciferol (vitamin D3) 25 mcg (1,000 unit) capsule 1,000 unit PO DAILY@06 Qty: 90 RF: 0 metoprolol succinate 100 mg tablet extended release 24 hr 100 mg PO DAILY Qty: 90 RF: 0 montelukast 10 mg tablet 10 mg PO DAILY@1800 Qty: 90 RF: 0 famotidine [Pepcid] 20 mg tablet 20 mg PO BID Qty: 180 RF: 0 topiramate [Topamax] 50 mg tablet 50 mg PO BID Qty: 180 RF: 0 mirtazapine [Remeron] 30 mg tablet 30 mg PO .at supper time Qty: 90 RF: 0 MediHoney (honey) 100 % paste 1 applic topical BID Qty: 103 RF: 0 Discharge Orders: Discharge ED (Routine); Ordered 02/11/21 Ordered By: José Sofia Referrals: Magalis Mcgovern, STATISTICAL GENETICIST-C [Primary Care Provider] - Discharge Diet: Usual diet Discharge Activity: Increase activity as tolerated Patient Instructions: Syncope (ED), Opioid Safety Activity Restrictions/Additional Instructions: Home and rest. Continue with routine care as directed. Drink plenty of fluids. Case management will contact you in the next day with a follow-up appointment with cardiology. Return to the emergency room for new concerns or worsening symptoms. Coding Level of Care Code ED Shot Hole Driller for Aliya Goodwin Exam Comprehensive
[2021-02-11 19:59] LABS: Basophils # 0.1 10^3/uL (0.0-0.1); Basophils % 0.8 %; Eosinophils # 0.1 10^3/uL (0.0-0.8); Eosinophils % 1.2 %; Hematocrit 41.5 % (42.0-52.0); Hemoglobin 13.2 g/dL (11.7-16.6); Lymphocytes # 3.1 10^3/uL (0.8-4.8); Lymphocytes % 41.3 %; Mean Corpuscular HGB Conc 31.8 g/dL (30.0-36.0); Mean Corpuscular Hemoglobin 30.8 pg (28.0-34.0); Mean Platelet Volume 9.8 fL (7.4-10.4); Monocytes # 0.5 10^3/uL (0.2-0.9); Monocytes % 6.5 %; Neutrophils # 3.69 10^3/uL (1.8-7.7); Neutrophils % 49.9 %; Nucleated Red Blood Cells % 0 %; Platelet Count 196 10^3/cmm (130-400); Red Blood Count 4.28 10^6/uL (4.1-5.3); Red Cell Distribution Width 12.9 % (12.1-15.1); White Blood Count 7.4 10^3/uL (4.0-10.0)
[2021-02-11 20:00] VITALS: BP 127/99; PULSE 83; RESP 18; O2SAT 92
[2021-02-11 20:02] VITALS: BP 129/85; BP 136/88; BP 143/91; PULSE 72; PULSE 84; PULSE 94
[2021-02-11 20:15] LABS: Alanine Aminotransferase 16 U/L (0-41); Albumin Level 4.2 g/dL (3.5-5.2); Alkaline Phosphatase 65 IU/L (40-130); Anion Gap 15.7 (5-19); Aspartate Amino Transferase 20 U/L (0-40); Blood Urea Nitrogen 9 mg/dL (8-23); Calcium 9.3 mg/dL (8.5-10.5); Carbon Dioxide 21 mmol/L (22-29); Chloride 108 mmol/L (98-107); Globulin 2.6 g/dL (1.3-4.6); Glucose 98 mg/dL (65-115); Osmolality Calculated 291 mOsm/kg (285-295); Potassium 3.7 mmol/L (3.5-5.1); Sodium 141 mmol/L (136-145); Total Bilirubin 0.4 mg/dL (0.15-1.2); Total Protein 6.8 g/dL (6.6-8.7); Troponin(5th) Baseline 26 ng/L (0-15)
[2021-02-11 20:16] LABS: Creatinine Clr Calc Pharmacy 85.2207
[2021-02-11 21:45] VITALS: BP 143/98; PULSE 91; RESP 18; O2SAT 94
[2021-02-11 22:02] VITALS: BP 143/98; PULSE 91; RESP 18; O2SAT 94
--- NOTE | 2021-02-12 13:38 | DCPLANNER ---
test engineering manager had message to schedule a follow up appointment for patient with cardiology. test engineering manager called [facility], spoke with Sejal, gave clinic patients information. A follow up appointment was scheduled for , February 14, 2021 at 2:[address] Granados. test engineering manager called and spoke with patients , and gave her the appointment information.
--- NOTE | 2021-03-15 13:52 | DCPLANNER ---
Patient had a follow up appointment scheduled for 02.14.21 with [facility] - patient did attend appointment.
== END 2021-02-11 21:55 | disposition home or self-care (01) ==
PROVIDERS: Physician Assistant; Emergency Provider Nurse Practitioner Family; PCP Nurse Practitioner
DX: R55 Syncope and collapse (principal); Z79.01 Long term (current) use of anticoagulants; Z79.02 Long term (current) use of antithrombotics/antiplatelets; Z86.73 Personal history of transient ischemic attack (TIA), and cerebral infarction without residual deficits; E78.5 Hyperlipidemia, unspecified; I10 Essential (primary) hypertension
CPT/HCPCS: 36415; 71045; 80053; 84484; 85025; 93005; 99284

== ENCOUNTER → 2021-04-17 10:54 | Outpatient (BNVA) | payer MEDICARE, SELFPAY | PROVIDERS: PCP Nurse Practitioner; Visit Provider Nurse Practitioner | DX: E55.9 Vitamin D deficiency, unspecified (principal); Z86.718 Personal history of other venous thrombosis and embolism; I63.10 Cerebral infarction due to embolism of unspecified precerebral artery; K21.9 Gastro-esophageal reflux disease without esophagitis; I71.4 Abdominal aortic aneurysm, without rupture; G47.00 Insomnia, unspecified; G43.909 Migraine, unspecified, not intractable, without status migrainosus; K05.10 Chronic gingivitis, plaque induced; R29.898 Other symptoms and signs involving the musculoskeletal system | CPT/HCPCS: 80053; 82306; 84443; 85025 ==

== ENCOUNTER 2021-05-08 06:00 | Outpatient (RCR) | payer MEDICARE, OTHER, SELFPAY | END 2021-05-26 23:59 | disposition home or self-care (01) | LOC: APT 06:00 | PROVIDERS: PCP Nurse Practitioner; Referring Provider Nurse Practitioner; Visit Provider Nurse Practitioner | DX: R29.898 Other symptoms and signs involving the musculoskeletal system (principal) | CPT/HCPCS: 97110; 97116; 97163 ==

== ENCOUNTER 2021-05-27 06:00 | Outpatient (RCR) | payer MEDICARE, OTHER, SELFPAY | END 2021-06-25 23:59 | disposition home or self-care (01) | LOC: APT 06:00 | PROVIDERS: PCP Nurse Practitioner; Visit Provider Nurse Practitioner | DX: R29.898 Other symptoms and signs involving the musculoskeletal system (principal) | CPT/HCPCS: 97110; 97112; 97116; 97164; 97530 ==

== ENCOUNTER 2021-06-26 06:00 | Outpatient (RCR) | payer MEDICARE, OTHER, SELFPAY | END 2021-07-26 23:59 | disposition home or self-care (01) | LOC: APT 06:00 | PROVIDERS: PCP Nurse Practitioner; Visit Provider Nurse Practitioner | DX: R29.898 Other symptoms and signs involving the musculoskeletal system (principal) | CPT/HCPCS: 73562; 97110; 97116; 97164 ==

== ENCOUNTER 2021-07-27 06:00 | Outpatient (RCR) | payer MEDICARE, OTHER, SELFPAY | END 2021-08-15 23:59 | disposition home or self-care (01) | LOC: APT 06:00 | PROVIDERS: PCP Family Medicine; Visit Provider Nurse Practitioner | DX: R29.898 Other symptoms and signs involving the musculoskeletal system (principal) | CPT/HCPCS: 97110; 97164 ==

== ENCOUNTER 2021-10-24 07:22 | Outpatient (CLI) | payer MEDICARE, OTHER, SELFPAY ==
--- NOTE | 2021-10-24 09:00 | CT_ITS ---
WS: [id number] CT ABDOMEN PELVIS TECHNIQUE: Contrast-enhanced CT of the abdomen and pelvis with coronal and sagittal reformatted image s. CLINICAL INFORMATION: R10.32 - Left lower quadrant pain COMPARISON: CT April 25, 2020 and DLP: 1270.[address] scans at [facility] use at least one of these dose optimization techniques: automated e xposure control; mA and/or kV adjustment per patient size (includes targeted exams where dose is matc hed to clinical indication); or iterative reconstruction. FINDINGS: Mild diffuse fatty infiltration of the liver. Normal portal vein and splenic vein. Tiny amount of slu dge or microcalculi in the gallbladder. This can be further evaluated with ultrasound. Normal pancrea tic parenchymal enhancement. Normal portal vein and splenic vein. Normal spleen. Splenic granulomas. Moderate esophageal hiatal hernia. Lung bases are well aerated. Adrenal glands are normal. Normal renal parenchymal enhancement. No hydr onephrosis. Bilateral renal cysts largest in the LEFT measuring 18 mm. Tortuous and aneurysmal infrar enal abdominal aorta measuring 3.2 x 2.9 cm AP by transverse. Slightly ectatic common iliac arteries RIGHT greater than LEFT. Findings are unchanged from previous. Duplicated RIGHT renal collecting system. No hydronephrosis in either kidney. Pelvic phleboliths. Tortuous sigmoid colon. Sigmoid colon diverticulosis. No evidence of acute diverticulitis. Descending colon diverticulosis. Fat-containing LEFT periumbilical hernia. This is unchanged from previous. Fat-containing RIGHT ingui nal hernia. Multilevel degenerative disc disease lumbar spine. Disc osteophyte complex L1-L2 with mod erate central canal stenosis appears unchanged. CT/CT abdomen pelvis w con* [id number] IMPRESSION: 1. Mild diffuse fatty infiltration of the liver. 2. Fat-containing LEFT periumbilical hernia unchanged. 3. Fat-containing RIGHT inguinal hernia. 4. Sigmoid diverticulosis. No evidence of acute diverticulitis. 5. Moderate esophageal hiatal hernia is unchanged. 6. Tiny amount of faint sludge or microcalculi in the dependent gallbladder. T his can be further evaluated with ultrasound. 7. No other acute findings and no other significant changes from previous.
[2021-10-24 09:18] LABS: Blood Urea Nitrogen 11 mg/dL (8-23)
[2021-10-24] MEDS: iohexol 300 mg/mL 50 mL Btl PO (09:22)
[2021-10-24] MEDS: iohexol 350 mg/mL 100 mL Btl IV (09:22)
== END 2021-10-24 07:23 | disposition home or self-care (01) ==
LOC: RAD 07:23
PROVIDERS: PCP Family Medicine; Visit Provider Surgery
DX: K76.0 Fatty (change of) liver, not elsewhere classified (principal); K42.9 Umbilical hernia without obstruction or gangrene; K40.90 Unilateral inguinal hernia, without obstruction or gangrene, not specified as recurrent; K57.30 Diverticulosis of large intestine without perforation or abscess without bleeding; K44.9 Diaphragmatic hernia without obstruction or gangrene
CPT/HCPCS: 74177; 82565; 84520

== ENCOUNTER → 2021-11-01 10:48 | Outpatient (BNVA) | payer MEDICARE, OTHER, SELFPAY | PROVIDERS: PCP Family Medicine; Visit Provider Surgery | DX: K40.20 Bilateral inguinal hernia, without obstruction or gangrene, not specified as recurrent (principal); K42.0 Umbilical hernia with obstruction, without gangrene; R10.32 Left lower quadrant pain | CPT/HCPCS: 99214 ==

== ENCOUNTER 2021-11-08 07:54 | Day surgery (SDC) | payer MEDICARE, OTHER, SELFPAY ==
[2021-11-06 14:13] VITALS: BMI 30.2
[2021-11-08 08:37] VITALS: BP 127/73; PULSE 67; RESP 18; TEMP 36.3; O2SAT 97
[2021-11-08] MEDS: sodium chloride 0.9% 1,000 ML 30 ML IV (08:40)
--- NOTE | 2021-11-08 09:18 | ANES.PREANE2 ---
Pre-Anesthetic Assessment Height/Weight: Height 1.78 m Weight 95.708 kg Temp Pulse Resp BP Pulse Ox 97.3 F L 67 18 127/73 97 11/08/21 08:37 11/08/21 08:37 11/08/21 08:37 11/08/21 08:37 11/08/21 08:37 Preop Diagnosis: diagnostic Operation Date: 11/08/21 09:30 Proposed Procedures p Colonoscopy 11067/r10.32(Not Applicable) - Richard Infante MD Familial anesthetic complications: None Was Beta Sania taken within 24 hours: N/A Was Clonidine taken within 24 hours: N/A Last intake: Intake Last Liquid Date 11/07/21 Last Liquid Time 23:00 Last Solid Date 11/06/21 Last Solid Time 19:00 Social No alcohol and No tobacco Exam alert, oriented x 3, clear to auscultation bilaterally and regular rate & rhythm Airway Submandibular: within normal limits Cervical ROM: within normal limits Mallampati: Class III Dentition: full CV/HEM Deep Vein Thrombosis, Hypertension and Peripheral Vascular Disease (AAA) Pacemaker, hole in heart closed with surgery in [place], [place]--VSD GI Gastroesophageal Reflux Disease Metabolic Hyperlipidemia Neuropsych Cerebrovascular Accident and Deficit (visual) Anesthetic Plan ASA status: 3 Anesthesia: MAC Medications/Allergies Home Medications Medication Instructions Recorded Confirmed Last Taken Type potassium citrate 10 mEq (1,080 10 meq PO BID@06,18 tab 08/09/19 11/08/21 11/06/21 History mg) tablet,extended release cholecalciferol (vitamin D3) 25 1,000 unit PO DAILY@06 #90 cap 04/17/21 11/08/21 11/06/21 Rx mcg (1,000 unit) capsule apixaban 5 mg tablet (Eliquis) 5 mg PO BID #120 tab 06/26/21 11/08/21 11/06/21 Rx atorvastatin 40 mg tablet 40 mg PO DAILY@18 #90 tab 06/26/21 11/08/21 11/08/21 Rx famotidine 20 mg tablet (Pepcid) 20 mg PO BID #180 tab 06/26/21 11/08/21 11/06/21 Rx metoprolol succinate 100 mg 100 mg PO DAILY #90 tab 06/26/21 11/08/21 11/06/21 Rx tablet,extended release 24 hr mirtazapine 30 mg tablet (Remeron) 30 mg PO .at supper time #90 tab 06/26/21 11/08/21 11/06/21 Rx topiramate 50 mg tablet (Topamax) 50 mg PO BID #180 tab 06/26/21 11/08/21 11/08/21 Rx . multivitamin 1 tab PO DAILY 07/18/21 11/08/21 11/06/21 History clopidogrel 75 mg tablet (Plavix) 75 mg PO DAILY #90 tab 09/20/21 11/08/21 11/04/21 Rx Allergies Allergy/AdvReac Type Severity Reaction Status Date / Time hydromorphone [From Dilaudid] Allergy UNK Verified 11/08/21 08:31 Current Medications Generic Name Dose Route Start Last Admin Trade Name Freq PRN Reason Stop Dose Admin Sodium Chloride 1,000 mls @ 30 mls/hr 11/08/21 08:15 11/08/21 08:40 Sodium Chloride 0.9% IV 11/09/21 08:14 30 mls/hr .Q24H KAY Administration PFSH Anesthesia Medical History Abdominal aortic aneurysm (AAA) Acid reflux Bilateral inguinal hernia CVA (cerebrovascular accident) -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 -residual right sided weakness and R visual field defect -continue Eliquis, statin Diverticulosis Dyslipidemia -on statin Environmental and seasonal allergies Gross hematuria Head ache Hemiparesis Hiatal hernia History of DVT (deep vein thrombosis) HTN (hypertension) -VSS; continue to monitor -continue BB Insomnia Interstitial lung disease Migraine Peptic ulcer disease Urolithiasis Vitamin D deficiency VSD (ventricular septal defect) Surgical History H/O lithotripsy 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 2020 YUE Rabago History of cataract surgery bilateral Hx of cardiac pacemaker Family History Mother , at age 91 Lung disease Father , 36-MVA No problems noted. Brother CAD (coronary artery disease) Chronic kidney disease (CKD) Lung disease Sister Cancer Chronic kidney disease (CKD) Family/Other Lung disease Denies family history of Diabetes Clotting disorder Dementia Suicide Anesthesia complication Bleeding disorder Stroke Social History Smoking and tobacco status: never smoked Second hand smoke exposure: No Smoking risk assessment/counseling performed?: Yes Alcohol intake: never Desire information about alcohol rehabilitation?: No Counseling given: No Desire information about substance/drug rehabilitation?: No Adopted: No Caregiver/support person: No Lives independently: Yes Household members: spouse Housing: House Marital status: service: Yes status details: 4 YEARS branch: [employer] Current occupational status: retired and disabled 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
--- NOTE | 2021-11-08 09:38 | W.PM.OPSFHP ---
Same Day Surgery H&P Indication for Procedure/HPI DATE OF PROCEDURE: November 08, 2021 CHIEF COMPLAINT/INDICATIONFOR SURGICAL PROCEDURE: screening colonoscopy PREOP DIAGNOSIS: diagnostic PLANNED PROCEDURE: Operation Date: 11/08/21 09:30 Proposed Procedures p Colonoscopy 09244/r10.32(Not Applicable) - Richard Infante MD Medications/Allergies* Home Medications Medication Instructions Recorded Confirmed Type potassium citrate 10 mEq (1,080 10 meq PO BID@06,18 tab 08/09/19 11/08/21 History mg) tablet,extended release multivitamin 1 tab PO DAILY 07/18/21 11/08/21 History Allergies/Adverse Reactions Allergy/AdvReac Type Severity Reaction Status Date / Time hydromorphone [From Dilaudid] Allergy UNK Verified 11/08/21 08:31 Current Medications: Generic Name Dose Route Start Last Admin Trade Name Freq PRN Reason Stop Dose Admin Sodium Chloride 1,000 mls @ 30 mls/hr 11/08/21 08:15 11/08/21 08:40 Sodium Chloride 0.9% IV 11/09/21 08:14 30 mls/hr .Q24H KAY Administration Pertinent History/Comorbid Conditions* Medical History (Updated 09/24/21 @ 16:02 by Richard Infante MD) Abdominal aortic aneurysm (AAA) Acid reflux Bilateral inguinal hernia CVA (cerebrovascular accident) -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 -residual right sided weakness and R visual field defect -continue Eliquis, statin Diverticulosis Dyslipidemia -on statin Environmental and seasonal allergies Gross hematuria Head ache Hemiparesis Hiatal hernia History of DVT (deep vein thrombosis) HTN (hypertension) -VSS; continue to monitor -continue BB Insomnia Interstitial lung disease Migraine Peptic ulcer disease Urolithiasis Vitamin D deficiency VSD (ventricular septal defect) Surgical History (Updated 04/20/21 @ 13:15 by NATE Hernandez) H/O lithotripsy 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 2020 YUE Rabago History of cataract surgery bilateral Hx of cardiac pacemaker Family History (Updated 09/27/20 @ 15:45 by Fanta Noriega RN) Father, 36-MVA Mother, at age 91 CAD (coronary artery disease) Brother Chronic kidney disease (CKD) Brother Sister Lung disease Mother Brother Family/Other Cancer Sister Denies family history of Diabetes Clotting disorder Dementia Suicide Anesthesia complication Bleeding disorder Stroke Social History Smoking and tobacco status: never smoked Second hand smoke exposure: No Smoking risk assessment/counseling performed?: Yes Alcohol intake: never Desire information about alcohol rehabilitation?: No Counseling given: No Desire information about substance/drug rehabilitation?: No Adopted: No Caregiver/support person: No Lives independently: Yes Household members: spouse Housing: House Marital status: service: Yes status details: 4 YEARS branch: [employer] Current occupational status: retired and disabled 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
--- NOTE | 2021-11-08 10:23 | SUR.OPER ---
clip placed at cecal polyp bx site
[2021-11-08 10:29] VITALS: BP 92/62; PULSE 62; RESP 16; TEMP 36.1; O2SAT 91
--- NOTE | 2021-11-08 10:31 | ANE.PACU2 ---
Inpatient post-anesthesia follow up: Airway intact: Yes Vital signs: Temperature 97.3 F Pulse Rate 67 Respiratory Rate 18 Blood Pressure 127/73 Pulse Oximetry 97 Oxygen Delivery Me thod Room Air Oxygen Flow Rate Fraction of Inspir ed Oxygen Hydration adequate: Yes Nausea and vomiting: No Pain level: 1 Mental status: Baseline
[2021-11-08 10:44] VITALS: BP 93/67; PULSE 60; RESP 16; O2SAT 99
[2021-11-08 10:55] VITALS: BP 91/66; PULSE 60; RESP 16; O2SAT 98
[2021-11-08 11:05] VITALS: BP 102/69; PULSE 59; RESP 16; O2SAT 95
== END 2021-11-08 11:20 | disposition home or self-care (01) ==
PROVIDERS: PCP Family Medicine; Visit Provider Surgery
PROC: 0DJD8ZZ Inspection of Lower Intestinal Tract, Via Natural or Artificial Opening Endoscopic (ICD-10-PCS; CPT 45378; principal; 2021-11-08 09:30)
DX: R10.32 Left lower quadrant pain (principal); D12.0 Benign neoplasm of cecum; K57.30 Diverticulosis of large intestine without perforation or abscess without bleeding; Z86.718 Personal history of other venous thrombosis and embolism; I10 Essential (primary) hypertension; Z95.0 Presence of cardiac pacemaker; K21.9 Gastro-esophageal reflux disease without esophagitis; E78.5 Hyperlipidemia, unspecified; Z86.73 Personal history of transient ischemic attack (TIA), and cerebral infarction without residual deficits
CPT/HCPCS: 45380; 45385; 88305; J2704; J7030

== ENCOUNTER → 2021-11-21 13:04 | Outpatient (BNVA) | payer MEDICARE, OTHER, SELFPAY | PROVIDERS: PCP Family Medicine; Visit Provider Surgery | DX: Z09 Encounter for follow-up examination after completed treatment for conditions other than malignant neoplasm (principal) | CPT/HCPCS: 99212 ==

== ENCOUNTER → 2022-01-16 11:25 | Outpatient (BNVA) | payer OTHER, SELFPAY | PROVIDERS: PCP Family Medicine; Visit Provider Internal Medicine Cardiovascular Disease | DX: I71.4 Abdominal aortic aneurysm, without rupture (principal); Z86.73 Personal history of transient ischemic attack (TIA), and cerebral infarction without residual deficits; Z95.0 Presence of cardiac pacemaker; Z87.74 Personal history of (corrected) congenital malformations of heart and circulatory system | CPT/HCPCS: 99214 ==

== ENCOUNTER 2022-01-24 18:59 | Emergency (ER) | payer OTHER, SELFPAY ==
[2022-01-24 19:15] VITALS: BP 134/88; PULSE 87; RESP 16; TEMP 36.9; O2SAT 95
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
[2022-01-24 21:49] VITALS: BP 136/70; PULSE 84; RESP 18; O2SAT 95
[2022-01-24 22:00] VITALS: BP 138/66; PULSE 84; RESP 18; O2SAT 97
[2022-01-24 22:18] VITALS: BP 138/66; PULSE 84; RESP 18; O2SAT 97
== END 2022-01-24 22:19 | disposition home or self-care (01) ==
PROVIDERS: Emergency Provider Emergency Medicine
DX: Z04.1 Encounter for examination and observation following transport accident (principal); Z79.01 Long term (current) use of anticoagulants; Z79.02 Long term (current) use of antithrombotics/antiplatelets; Z86.73 Personal history of transient ischemic attack (TIA), and cerebral infarction without residual deficits; E78.5 Hyperlipidemia, unspecified; I10 Essential (primary) hypertension; Z95.0 Presence of cardiac pacemaker; V89.2XXA Person injured in unspecified motor-vehicle accident, traffic, initial encounter
CPT/HCPCS: 70450; 99283

== ENCOUNTER 2022-07-23 01:00 | Outpatient (CLI) | payer MEDICARE, OTHER, SELFPAY | END 2022-07-23 23:00 | disposition home or self-care (01) | LOC: RAD 07-28 14:15 | PROVIDERS: Visit Provider Internal Medicine Cardiovascular Disease | DX: I71.40 Abdominal aortic aneurysm, without rupture, unspecified (principal); Z86.73 Personal history of transient ischemic attack (TIA), and cerebral infarction without residual deficits; Z87.74 Personal history of (corrected) congenital malformations of heart and circulatory system; Z86.718 Personal history of other venous thrombosis and embolism | CPT/HCPCS: 99214 ==

== ENCOUNTER 2022-08-05 08:14 | Outpatient (CLI) | payer OTHER, SELFPAY ==
--- NOTE | 2022-08-05 08:45 | USCV_ITS ---
Servando Whitmore Age: 76 Gender: M : 1945 Exam Date: 08/05/2022 08:43 Ordering Phys: Georgie Granados MD ([email or web address]) Technologist: HOMER Exam Location: [facility] – [place] Indication: F/U KNOWN AAA HISTORY: Diameter (cm) AP x Transverse x Length Velocity (cm/s) Waveform Prox Aorta: 2.28 x 2.36 x 124.70 Triphasic Mid Aorta: 2.27 x 2.15 x 74.40 Triphasic Distal Aorta: 3.46 x 3.51 x 5.01 46.30 Triphasic Right Iliac Prox: 1.76 x 1.31 x 47.90 Triphasic Left Iliac Prox: 1.44 x 1.39 x 82.60 Triphasic Stent Prox Landing x x Aneurysmal Sac Max x x Lt Lat Sac Dim Rt Lat Sac Dim Stent Dist Landing x x Right Iliac Stent x x Left Iliac Stent x x Right Renal Art Left Renal Art FINDINGS: Fusiform dilatation of the infrarenal aorta Multiple iliac arteries appears to be mildly dilated Normal Doppler formalities in the aorta and in the iliac arteries CONCLUSIONS 1. Fusiform aneurysm of the infrarenal aorta measuring 3.46 x 3.51 cm 2. Ectatic iliac arteries bilaterally 3. No unstable plaques or lesions noted in the examined portions of the aorta and iliac arteries Dr Georgie Granados MD [facility] (Electronically Signed) Final Date: 06 August 2022 20:14 S
== END 2022-08-05 08:15 | disposition home or self-care (01) ==
LOC: RAD 08:17
PROVIDERS: Visit Provider Internal Medicine Cardiovascular Disease
DX: I71.40 Abdominal aortic aneurysm, without rupture, unspecified (principal)
CPT/HCPCS: 93978

== ENCOUNTER 2022-09-29 11:52 | Outpatient (CLI) | payer OTHER, SELFPAY ==
--- NOTE | 2022-09-29 11:59 | XRR_ITS ---
PROCEDURE INFORMATION: Exam: XR Abdomen Exam date and time: 09/29/2022 12:10 PM Age: 77 years old Clinical indication: Condition or disease; Kidney or ureter condition; Calculus (stone) in kidney; Prior surgery; Surgery type: Lithotripsy; Additional info: Urolithiasis, kub @ [facility] 09/29/22 @ 1200 appointment to follow TECHNIQUE: Imaging protocol: Radiologic exam of the abdomen. Views: Frontal supine view of the abdomen. 1 View. COMPARISON: CT abdomen pelvis w con* [id number] 10/24/2021 9:04 AM FINDINGS: Gastrointestinal tract: Normal. No bowel dilation. Bones/joints: Mild-moderate multilevel degenerative changes throughout the lumbar spine. Other findings: Multiple small rounded calcifications in the pelvis believed to represent incidental phleboliths. No suspicous calcifications. XR/XR KUB [id number] IMPRESSION: No suspicious calcifications detected.
== END 2022-09-29 11:53 | disposition home or self-care (01) ==
PROVIDERS: Visit Provider Urology
DX: N20.9 Urinary calculus, unspecified (principal)
CPT/HCPCS: 74018; 81003; 99213

== ENCOUNTER → 2023-02-04 10:02 | Outpatient (BNVA) | payer OTHER, SELFPAY | PROVIDERS: PCP Family Medicine; Visit Provider Internal Medicine Cardiovascular Disease | DX: I71.40 Abdominal aortic aneurysm, without rupture, unspecified (principal); Z86.73 Personal history of transient ischemic attack (TIA), and cerebral infarction without residual deficits; Z87.74 Personal history of (corrected) congenital malformations of heart and circulatory system; Z86.718 Personal history of other venous thrombosis and embolism; Z95.0 Presence of cardiac pacemaker | CPT/HCPCS: 99214 ==

== ENCOUNTER → 2023-09-02 14:27 | Outpatient (BNVA) | payer OTHER, SELFPAY | PROVIDERS: PCP Family Medicine | DX: Z45.010 Encounter for checking and testing of cardiac pacemaker pulse generator [battery] (principal) | CPT/HCPCS: 93296 ==

== ENCOUNTER → 2024-01-20 10:23 | Outpatient (BNVA) | payer OTHER, SELFPAY | PROVIDERS: PCP Family Medicine; Visit Provider Internal Medicine Cardiovascular Disease | DX: Z45.010 Encounter for checking and testing of cardiac pacemaker pulse generator [battery] (principal) | CPT/HCPCS: 93296 ==

== ENCOUNTER → 2024-05-04 09:46 | Outpatient (BNVA) | payer OTHER, SELFPAY | PROVIDERS: PCP Family Medicine; Visit Provider Internal Medicine Cardiovascular Disease | DX: Z45.018 Encounter for adjustment and management of other part of cardiac pacemaker (principal) | CPT/HCPCS: 93296 ==

== ENCOUNTER → 2024-05-09 14:08 | Outpatient (BNVA) | payer OTHER, SELFPAY | PROVIDERS: PCP Family Medicine; Visit Provider Internal Medicine Cardiovascular Disease | DX: I71.40 Abdominal aortic aneurysm, without rupture, unspecified (principal); Z87.74 Personal history of (corrected) congenital malformations of heart and circulatory system; Z86.718 Personal history of other venous thrombosis and embolism; Z95.0 Presence of cardiac pacemaker; Z79.01 Long term (current) use of anticoagulants | CPT/HCPCS: 99214 ==

== ENCOUNTER 2024-05-24 07:57 | Outpatient (CLI) | payer OTHER, SELFPAY ==
--- NOTE | 2024-05-24 08:01 | US_ITS ---
WS: [id number] RIGHT UPPER QUADRANT ULTRASOUND HISTORY: NAUSEA W/EATING COMPARISON: 08/04/2013, 10/24/2021 Liver: 15.2 cm in length. Normal size liver and echogenicity. No bile duct dilatation or mass. Portal Vein: Normal hepatopetal flow with monophasic waveform. Gallbladder: Poorly visualized gallbladder. Previously described cholelithiasis is not identified on today's exam. CBD: 0.6 cm Pancreas: Completely obscured. Right kidney: 10.2 cm in length. Poorly visualized kidney. It would be difficult to exclude mass or a bnormality. No hydronephrosis. Aorta and IVC: Mildly ectatic dilated abdominal aorta up to 3.3 cm. Patient has a known previously de scribed aneurysm. No increase in size since 08/05/2022. No ascites. US/US abdomen limited [id number] IMPRESSION: 1. No cholelithiasis identified on today's ultrasound. Small gravel-like stone s within the previously described in the gallbladder. 2. No bile duct dilatation. 3. Poorly visualized pancreas and RIGHT kidney. 4. Patient has a known aortic aneurysm, 3.3 cm.
== END 2024-05-24 07:58 | disposition home or self-care (01) ==
LOC: RAD 07:58
PROVIDERS: PCP Family Medicine; Visit Provider Family Medicine
DX: I71.40 Abdominal aortic aneurysm, without rupture, unspecified (principal)
CPT/HCPCS: 76705

== ENCOUNTER 2024-05-26 08:30 | Outpatient (CLI) | payer OTHER, SELFPAY ==
--- NOTE | 2024-05-26 08:36 | USCV_ITS ---
Servando Whitmore Age: 78 Gender: M : 1945 Exam Date: 05/26/2024 08:42 Ordering Phys: Kelsy Daniel MD Technologist: USR [place] [facility] [place]: HISTORY: Diameter (cm) AP x Transverse x Length Velocity (cm/s) Waveform Prox Aorta: 2.44 x 2.54 x 56.90 Triphasic Mid Aorta: 1.80 x 1.79 x 54.60 Triphasic Distal Aorta: 3.28 x 3.01 x 4.50 51.20 Triphasic Right Iliac Prox: 2.19 x 2.30 x 135.80 Triphasic Left Iliac Prox: 1.50 x 1.50 x 55.80 Triphasic Stent Prox Landing x x Aneurysmal Sac Max x x Lt Lat Sac Dim Rt Lat Sac Dim Stent Dist Landing x x Right Iliac Stent x x Left Iliac Stent x x Right Renal Art Left Renal Art FINDINGS: Comparison:. 08/05/22 A fusiform abdominal aortic aneurysm is noted with a maximal diameter of 3.3 cm. There are no findings to suggest rupture of the abdominal aortic aneurysm. No evidence of periaortic fluid is detected. 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 CONCLUSIONS No change seen from prior study. A fusiform abdominal aortic aneurysm is noted with a maximal diameter of 3.3 cm. 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 Irene Ojeda DO (Electronically Signed) Final Date: 26 May 2024 10:36 S
== END 2024-05-26 08:31 | disposition home or self-care (01) ==
LOC: RAD 08:31
PROVIDERS: PCP Family Medicine; Visit Provider Family Medicine
DX: I71.40 Abdominal aortic aneurysm, without rupture, unspecified (principal); I72.3 Aneurysm of iliac artery
CPT/HCPCS: 76706

== ENCOUNTER → 2024-08-11 08:40 | Outpatient (BNVA) | payer OTHER, SELFPAY | PROVIDERS: PCP Family Medicine; Visit Provider Student in an Organized Health Care Education/Training Program | DX: K82.9 Disease of gallbladder, unspecified (principal) | CPT/HCPCS: 99204; 99214 ==

== ENCOUNTER → 2024-08-17 10:46 | Outpatient (BNVA) | payer OTHER, SELFPAY | PROVIDERS: PCP Family Medicine; Visit Provider Internal Medicine Cardiovascular Disease | DX: Z45.018 Encounter for adjustment and management of other part of cardiac pacemaker (principal) | CPT/HCPCS: 93296 ==

== ENCOUNTER → 2024-09-12 10:57 | Outpatient (BNVA) | payer OTHER, SELFPAY | PROVIDERS: PCP Family Medicine; Visit Provider Family Medicine | DX: Z01.818 Encounter for other preprocedural examination (principal) | CPT/HCPCS: 80053; 85007; 85027; 93005 ==

== ENCOUNTER 2024-09-28 06:03 | Day surgery (SDC) | payer OTHER, SELFPAY ==
[2024-09-28] VITALS (11 sets, daily range): BP systolic 124–151; BP diastolic 73–102; PULSE 51–71; RESP 14–22; TEMP 36.2–36.7; O2SAT 90–98; BMI 29.2
[2024-09-28] MEDS: sodium chloride 0.9% 1,000 ML 30 ML IV (06:46)
--- NOTE | 2024-09-28 07:04 | W.PM.OPSFHP ---
Same Day Surgery H&P Indication for Procedure/HPI DATE OF PROCEDURE: September 28, 2024 CHIEF COMPLAINT/INDICATIONFOR SURGICAL PROCEDURE: biliary colic PREOP DIAGNOSIS: biliary colic PLANNED PROCEDURE: Operation Date: 09/28/24 07:55 Proposed Procedures p Laparoscopic Cholecystectomy 35449, K82.9(Not Applicable) - Seven Em MD Medications/Allergies* Home Medications ?Medication ?Instructions ?Recorded ?Confirmed ?Type potassium citrate 10 mEq (1,080 10 meq PO BID@06,18 08/09/19 09/27/24 History mg) tablet,extended release multivitamin 1 tab PO DAILY 07/18/21 09/27/24 History metoprolol succinate 50 mg 50 mg PO DAILY 02/04/23 09/28/24 History tablet,extended release 24 hr cetirizine 10 mg tablet 10 mg PO DAILY PRN allergies 08/11/24 09/27/24 History pantoprazole 40 mg tablet,delayed 40 mg PO DAILY 08/11/24 09/27/24 History release apixaban 5 mg tablet (Eliquis) 5 mg PO BID 09/27/24 09/27/24 History clopidogrel 75 mg tablet (Plavix) 75 mg PO DAILY 09/27/24 09/27/24 History Allergies/Adverse Reactions Allergy/AdvReac Type Severity Reaction Status Date / Time hydromorphone (From Dilaudid) Allergy UNK Verified 09/28/24 06:16 Current Medications: Generic Name Dose Route Start Last Admin Trade Name Freq PRN Reason Stop Dose Admin Sodium Chloride 1,000 mls @ 30 mls/hr 09/28/24 06:15 09/28/24 06:46 Sodium Chloride 0.9% IV 09/29/24 06:14 30 mls/hr .Q24H KAY Administration Pertinent History/Comorbid Conditions* Medical History (Updated 05/09/24 @ 15:22 by Georgie Granados MD) Bilateral inguinal hernia History of DVT (deep vein thrombosis) Migraine Acid reflux Environmental and seasonal allergies Vitamin D deficiency Insomnia Interstitial lung disease Urolithiasis Gross hematuria Dyslipidemia -on statin Peptic ulcer disease Abdominal aortic aneurysm (AAA) CVA (cerebrovascular accident) -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 -residual right sided weakness and R visual field defect -continue Eliquis, statin Head ache Hiatal hernia HTN (hypertension) -VSS; continue to monitor -continue BB Hemiparesis Diverticulosis VSD (ventricular septal defect) Surgical History (Updated 11/08/21 @ 10:34 by Richard Infante MD) Status post colonoscopy with polypectomy (11/08/21) Hx of cardiac pacemaker 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 2020 YUE Rabago History of cataract surgery bilateral H/O lithotripsy Family History (Updated 09/27/20 @ 15:45 by Fanta Noriega RN) Father, 36-MVA Mother, at age 91 CAD (coronary artery disease) Brother Chronic kidney disease (CKD) Brother Sister Lung disease Mother Brother Family/Other Cancer Sister Denies family history of Diabetes Clotting disorder Dementia Suicide Anesthesia complication Bleeding disorder Stroke Social History Smoking and tobacco/nicotine status: never used tobacco/nicotine Second hand smoke exposure: No Alcohol intake: never Substance/Drug Use: never Adopted: No Caregiver/support person: No Lives independently: Yes Household members: spouse Housing: House Marital status: service: Yes status details: 4 YEARS branch: [employer] Current occupational status: retired and disabled 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
--- NOTE | 2024-09-28 07:42 | ANES.PREANE2 ---
Pre-Anesthetic Assessment Height/Weight: Height 5 ft 10 in Weight 204 lb Temp Pulse Resp BP Pulse Ox O2 Del Method 98.0 F 71 18 151/102 96 Room Air 09/28/24 06:21 09/28/24 06:21 09/28/24 06:21 09/28/24 06:21 09/28/24 06:21 09/28/24 06:23 Preop Diagnosis: biliary colic Operation Date: 09/28/24 07:55 Proposed Procedures p Laparoscopic Cholecystectomy 90570, K82.9(Not Applicable) - Seven Em MD Was Beta Sania taken within 24 hours: Yes Was Clonidine taken within 24 hours: N/A Last intake: Intake Last Liquid Date 09/27/24 Last Liquid Time 18:00 Last Solid Date 09/27/24 Last Solid Time 18:00 Social No alcohol and No tobacco Exam alert, oriented x 3, clear to auscultation bilaterally and regular rate & rhythm Airway Submandibular: within normal limits Cervical ROM: within normal limits Mallampati: Class III Dentition: full Anesthetic Plan ASA status: 3 Anesthesia: General Other: No prior issues with anesthesia NPO since yesterday evening History of hypertension on metoprolol CAD, s/p VSD repair Patient has a current pacemaker in place. On chronic Plavix and Eliquis. Eliquis last taken 09/25/2024 and Plavix 09/23/2024. Patient was bridged with subcu Lovenox Pacemaker check from April showing DDD mode GERD on Protonix Prior CVA with right sided vision loss Labs 09/12/2024 reviewed acceptable for procedure today Medications/Allergies Home Medications ?Medication ?Instructions ?Recorded ?Confirmed ?Last Taken ?Type potassium citrate 10 mEq (1,080 10 meq PO BID@06,18 08/09/19 09/27/24 09/27/24 History mg) tablet,extended release cholecalciferol (vitamin D3) 25 1,000 unit PO DAILY@06 #90 caps 04/17/21 09/27/24 09/27/24 Rx mcg (1,000 unit) capsule atorvastatin 40 mg tablet 40 mg PO DAILY@18 #90 tabs 06/26/21 09/27/24 09/26/24 Rx multivitamin 1 tab PO DAILY 07/18/21 09/27/24 09/27/24 History metoprolol succinate 50 mg 50 mg PO DAILY 02/04/23 09/28/24 09/28/24 History tablet,extended release 24 hr cetirizine 10 mg tablet 10 mg PO DAILY PRN allergies 08/11/24 09/27/24 Unknown History pantoprazole 40 mg tablet,delayed 40 mg PO DAILY 08/11/24 09/27/24 09/27/24 History release enoxaparin 100 mg/mL subcutaneous 90 mg (0.9 mL) SUBCUT Q12H Lovenox 09/19/24 09/27/24 09/24/24 21:00 Rx syringe (Lovenox) Bridge #6 mL apixaban 5 mg tablet (Eliquis) 5 mg PO BID 09/27/24 09/27/24 09/25/24 History clopidogrel 75 mg tablet (Plavix) 75 mg PO DAILY 09/27/24 09/27/24 09/23/24 History Allergies Allergy/AdvReac Type Severity Reaction Status Date / Time hydromorphone (From Dilaudid) Allergy UNK Verified 09/28/24 06:16 Current Medications Generic Name Dose Route Start Last Admin Trade Name Freq PRN Reason Stop Dose Admin Sodium Chloride 1,000 mls @ 30 mls/hr 09/28/24 06:15 09/28/24 06:46 Sodium Chloride 0.9% IV 09/29/24 06:14 30 mls/hr .Q24H KAY Administration PFSH Anesthesia Medical History Bilateral inguinal hernia History of DVT (deep vein thrombosis) Migraine Acid reflux Environmental and seasonal allergies Vitamin D deficiency Insomnia Interstitial lung disease Urolithiasis Gross hematuria Dyslipidemia -on statin Peptic ulcer disease Abdominal aortic aneurysm (AAA) CVA (cerebrovascular accident) -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 Brother CAD (coronary artery disease) Chronic kidney disease (CKD) Lung disease Sister Cancer Chronic kidney disease (CKD) Family/Other Lung disease Denies family history of Diabetes Clotting disorder Dementia Suicide Anesthesia complication Bleeding disorder Stroke Social History Smoking and tobacco/nicotine status: never used tobacco/nicotine Second hand smoke exposure: No Alcohol intake: never Substance/Drug Use: never Adopted: No Caregiver/support person: No Lives independently: Yes Household members: spouse Housing: House Marital status: service: Yes status details: 4 YEARS branch: [employer] Current occupational status: retired and disabled 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
[2024-09-28] MEDS: ceFAZolin 2,000 mg SDV 2000 MG IVP (07:55)
[2024-09-28] MEDS: lidocaine-epi 1% 20 mL INJ INJECTION (08:08)
--- NOTE | 2024-09-28 08:44 | P.OP_ITS ---
Operative Report Date of procedure: September 28, 2024 Pre-op diagnosis: Biliary colic Post-op diagnosis: same Post-op findings: Large gallbladder. Surgical site hemostatic. Procedure done: Laparoscopic cholecystectomy Implants: N/A Specimens removed/disposition: Gallbladder sent to pathology Pathology: Gallbladder sent to pathology Surgeon: Seven Em MD Coding Technician: N/A Anesthesia: General Estimated blood loss (mL): 10 Complications: N/A Findings: Large gallbladder. Surgical site hemostatic. Condition: stable Disposition: same day Brief History: 79-year-old male who presented with biliary colic. Imaging showed sludge and small stones. Discussed risk and benefits the patient agreed to proceed with laparoscopic cholecystectomy possible open. Procedure: I discussed the risks and benefits of laparoscopic cholecystectomy, and obtained consent prior to proceeding to the operating room. SCDs were utilized. Prophylactic antibiotics were administered. General anesthesia was induced. The patient was placed supine, and she was prepped and draped in the usual sterile fashion. Insufflation to 15mmHg was achieved using a Veress needle at Hernandez's point. A 12mm optiview trocar was placed at the umbilicus under direct visualization. The left upper quadrant was inspected, and no injuries were noted. Two 5mm ports were placed in the right upper quadrant, and a 12mm working port was placed in the epigastrium. The gallbladder was then retracted cephalad through the lateral RUQ port, and the infundibulum grabbed through the medial RUQ port and retracted laterally. The gallbladder was inflammed and thus consistent with her diagnosis of cholecystitis. I proceeded to score the peritoneum over the medial aspect of the gallbladder using a laparoscopic hook with electrocautery. Then the infundibulum was retracted medially in order to score the peritoneum over the lateral aspect of the galbladder. Using a combination of energy and blunt dissection with the [place] and a Kittner dissector, the cystic artery and cystic duct were dissected. I then proceeded to dissect the cystic plate in order to to achieve the critical view of safety. The cystic artery and the cystic duct were clipped three times (leaving two clips on the proximal end of both structures). I then proceeded to dissect the gallbladder off the liver using hook electrocautery. The specimen was placed in an endocatch bag and retrieved from the abdomen through the port on the epigastrium. I then irrigated the gallbladder fossa with 1L of NS to confirm adequate hemostasis and the absence of any bile leaks. The gallbladder fossa was then cauterized again. I did notice a small 5 mm laceration by the falciform ligament that was cauterized. At the end of the case I confirmed adequate hemostasis at this laceration site. Prior to ending the laparoscopic portion, I examined the rest of the abdomen and did not find any abnormalities or injuries. The abdomen was then desufflated. Skin was closed using 4-0 monocryl and surgical glue. The patient woke up from anesthesia and transferred to PACU without any complications.
[2024-09-28] MEDS: oxyCODONE 5 mg IR Tab/Cap PO (09:56)
--- NOTE | 2024-09-28 10:17 | ANE.PACU2 ---
Inpatient post-anesthesia follow up: Airway intact: Yes Vital signs: Temperature 97.7 F Pulse Rate 65 Respiratory Rate 17 Blood Pressure 141/77 Pulse Oximetry 93 Oxygen Delivery Me thod Room Air Oxygen Flow Rate 3 Fraction of Inspir ed Oxygen Hydration adequate: Yes Nausea and vomiting: No Pain level: 1 Mental status: Baseline
== END 2024-09-28 10:17 | disposition home or self-care (01) ==
PROVIDERS: PCP Family Medicine; Visit Provider Student in an Organized Health Care Education/Training Program
PROC: 0FT44ZZ Resection of Gallbladder, Percutaneous Endoscopic Approach (ICD-10-PCS; CPT 47562; principal; 2024-09-28 07:55)
DX: K80.44 Calculus of bile duct with chronic cholecystitis without obstruction (principal); I69.951 Hemiplegia and hemiparesis following unspecified cerebrovascular disease affecting right dominant side; I69.912 Visuospatial deficit and spatial neglect following unspecified cerebrovascular disease; I10 Essential (primary) hypertension; Z95.0 Presence of cardiac pacemaker; E78.5 Hyperlipidemia, unspecified; Z79.899 Other long term (current) drug therapy; Z79.01 Long term (current) use of anticoagulants; Z86.718 Personal history of other venous thrombosis and embolism; Z95.2 Presence of prosthetic heart valve
CPT/HCPCS: 47562; 88304; A4216; J0690; J1100; J2405; J2704; J2710; J3010; J3490; J7030

== ENCOUNTER → 2024-10-10 08:01 | Outpatient (BNVA) | payer OTHER, SELFPAY | PROVIDERS: PCP Family Medicine; Visit Provider Student in an Organized Health Care Education/Training Program | DX: R03.0 Elevated blood-pressure reading, without diagnosis of hypertension (principal); Z90.49 Acquired absence of other specified parts of digestive tract; Z98.890 Other specified postprocedural states | CPT/HCPCS: 99024 ==

== ENCOUNTER → 2024-11-01 09:44 | Outpatient (BNVA) | payer OTHER, SELFPAY | PROVIDERS: PCP Family Medicine; Visit Provider Nurse Practitioner Family | DX: I71.40 Abdominal aortic aneurysm, without rupture, unspecified (principal); I48.91 Unspecified atrial fibrillation; Z79.01 Long term (current) use of anticoagulants; Z87.74 Personal history of (corrected) congenital malformations of heart and circulatory system; Z86.718 Personal history of other venous thrombosis and embolism; Z86.73 Personal history of transient ischemic attack (TIA), and cerebral infarction without residual deficits; Z95.0 Presence of cardiac pacemaker | CPT/HCPCS: 99214 ==

== ENCOUNTER 2024-11-16 11:02 | Emergency (ER) | payer OTHER, MEDICARE, SELFPAY ==
[2024-11-16 11:09] VITALS: BP 134/87; PULSE 67; RESP 16; TEMP 36.4; O2SAT 96; BMI 27.8
--- NOTE | 2024-11-16 11:18 | CT_ITS ---
WS: [id number] CT HEAD TECHNIQUE: Noncontrast CT of the head obtained from the skullbase to the vertex. CLINICAL INFORMATION: dizzziness COMPARISON: CT 01/24/2022 DLP: 1473.[address] scans at [facility] use at least one of these dose optimization techniques: automated exposure control; mA and/or kV adjustment per patient size (includes targeted exams where dose is matched to clinical indication); or iterative reconstruction. FINDINGS: No evidence of intracranial hemorrhage or mass effect. Ventricular system and basal cisterns are patent. Mild small vessel changes with moderate parenchymal volume loss. No extra-axial fluid collections. No evidence of mass or mass effect. Encephalomalacia in the LEFT parasagittal parietal lobe is unchanged. Paranasal sinuses and mastoid air cells are well aerated. .Normal visualized soft tissues. CT/CT head wo con* [id number] IMPRESSION: 1. No evidence of intracranial hemorrhage or mass effect. 2. No acute intracranial findings.
--- NOTE | 2024-11-16 11:18 | XRR_ITS ---
PROCEDURE INFORMATION: Exam: XR Chest Exam date and time: 11/16/2024 11:42 AM Age: 79 years old Clinical indication: Other: Weakness; Syncope episodes TECHNIQUE: Imaging protocol: Radiologic exam of the chest. Views: 1 view. COMPARISON: CR XR chest 1V portable [id number] 02/11/2021 7:04 PM FINDINGS: Tubes, catheters and devices: There is a 2 lead pacemaker on the left side of the chest. Lungs: Unremarkable. No consolidation. Pleural spaces: Unremarkable. No pleural effusion. No pneumothorax. Heart/Mediastinum: Unremarkable. No cardiomegaly. Bones/joints: Unremarkable. XR/XR chest 1V portable [id number] IMPRESSION: No radiographic evidence of acute cardiopulmonary disease.
--- NOTE | 2024-11-16 11:18 | CT_ITS ---
WS: [id number] CT CERVICAL TRAUMA TECHNIQUE: Noncontrast CT of the cervical spine with coronal and sagittal reformatted images. CLINICAL INFORMATION: neck pain COMPARISON: None. DLP: 1473.[address] scans at [facility] use at least one of these dose optimization techniques: automated exposure control; mA and/or kV adjustment per patient size (includes targeted exams where dose is matched to clinical indication); or iterative reconstruction. FINDINGS: Moderate spondylitic changes. Straightening of the normal cervical lordosis. Slight anterolisthesis C4 on C5. Disc osteophyte complexes at C5-C6 and C6-C7. Benign sclerotic lesion C4 vertebral body unchanged since 2020 Normal craniocervical junction. Normal C1-C2 articulation. Dens is normal in appearance. Normal occipital condyles. No high-grade spinal canal narrowing. Normal C1 ring. No evidence of acute fracture or dislocation. Normal prevertebral soft tissues. Mastoids air cells are well aerated. CT/CT cervical spin wo con* [id number] IMPRESSION: No evidence of acute fracture or dislocation.
--- NOTE | 2024-11-16 11:18 | ECG_ITS ---
[facility] Test Date: 2024-11-16 Pat Name: Servando Whitmore Department: Room: Gender: Male Threat Analyst: : 1945 Requested By: Susi Hensley Order Number: [id number] Michele MD: Georgie Granados M.D. Measurements Intervals [place] Rate: 61 P: 193 MO: 187 QRS: 12 QRSD: 111 T: 35 QT: 444 QTc: 448 Interpretive Statements ELECTRONIC ATRIAL PACEMAKER LOW QRS VOLTAGE IN PRECORDIAL LEADS [QRS DEFLECTION < 1.0 mV IN CHEST LEADS] INCOMPLETE RIGHT BUNDLE BRANCH BLOCK [90+ ms QRS DURATION, TERMINAL R IN V1/V2, 40+ ms S IN I/aVL/V4/V5/V6] MODERATE ST DEPRESSION [0.05+ mV ST DEPRESSION] Compared to ECG 09/12/2024 11:01:50 Incomplete right bundle-branch block now present ST (T wave) deviation now present Intraventricular conduction delay no longer present Electronically Signed On 11-16-2024 19:43:45 CDT by Georgie Granados M.D. [id number] [id number]
--- NOTE | 2024-11-16 11:32 | W.ED.DIZZY ---
HPI - Dizziness General: Chief Complaint: Dizziness Stated Complaint: SHANIA gomez dizzy Time Seen by Provider: 11/16/24 11:17 History of Present Illness: HPI Narrative: 79-year-old with history of stroke, chronic anticoagulation on Eliquis and Plavix, hypertension and history of DVT who presents to the emergency room with complaint of dizziness. He says over the last few days when he is woke up and moved around he had spinning type dizziness. This resolved during the day. He also has had a couple of episodes with some memory loss recently in the combination of the 2 he became worried about stroke. He has not missed any of his Eliquis or Plavix. No focal motor deficits. No confusion at the time of exam. No altered mental status. He currently has no dizziness. No fevers. No cough. No chest pain. No shortness of breath. No abdominal pain. No dysuria. Related Data Home Medications ?Medication ?Instructions ?Recorded ?Confirmed potassium citrate 10 mEq (1,080 10 meq PO BID@06,18 08/09/19 11/01/24 mg) tablet,extended release multivitamin 1 tab PO DAILY 07/18/21 11/01/24 metoprolol succinate 50 mg 50 mg PO DAILY 02/04/23 11/01/24 tablet,extended release 24 hr cetirizine 10 mg tablet 10 mg PO DAILY PRN allergies 08/11/24 11/01/24 apixaban 5 mg tablet (Eliquis) 5 mg PO BID 09/27/24 11/01/24 Held on 09/28/24. Instructions: Resume on 09/29/24. clopidogrel 75 mg tablet (Plavix) 75 mg PO DAILY 09/27/24 11/01/24 Held on 09/28/24. Instructions: Resume on 09/29/24. pantoprazole 40 mg tablet,delayed 40 mg PO DAILY 11/01/24 11/01/24 release Previous Rx's ?Medication ?Instructions ?Recorded cholecalciferol (vitamin D3) 25 1,000 unit PO DAILY@06 #90 caps 04/17/21 mcg (1,000 unit) capsule atorvastatin 40 mg tablet 40 mg PO DAILY@18 #90 tabs 06/26/21 meclizine 25 mg tablet 25 mg PO QID PRN dizziness #20 tabs 11/16/24 Allergies Allergy/AdvReac Type Severity Reaction Status Date / Time hydromorphone (From Dilaudid) Allergy UNK Verified 11/01/24 09:57 Review of Systems Narrative: Constitutional symptoms: Negative except as documented in HPI. Skin symptoms: Negative except as documented in HPI. Eye symptoms: Negative except as documented in HPI. ENMT symptoms: Negative except as documented in HPI. Respiratory symptoms: Negative except as documented in HPI. Cardiovascular symptoms: Negative except as documented in HPI. Gastrointestinal symptoms: Negative except as documented in HPI. Genitourinary symptoms: Negative except as documented in HPI. Musculoskeletal symptoms: Negative except as documented in HPI. Neurologic symptoms: Negative except as documented in HPI. Psychiatric symptoms: Negative except as documented in HPI. Endocrine symptoms: Negative except as documented in HPI. 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 Brother CAD (coronary artery disease) Chronic kidney disease (CKD) Lung disease Sister Cancer Chronic kidney disease (CKD) Family/Other Lung disease Denies family history of Diabetes Clotting disorder Dementia Suicide Anesthesia complication Bleeding disorder Stroke Social History Smoking and tobacco/nicotine status: never used tobacco/nicotine Second hand smoke exposure: No Alcohol intake: never Substance/Drug Use: never Adopted: No Caregiver/support person: No Lives independently: Yes Household members: spouse Housing: House Marital status: service: Yes status details: 4 YEARS branch: [employer] Current occupational status: retired and disabled 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 Skin: Warm, dry. Head: Normocephalic, atraumatic. Neck: Supple, trachea midline. Eye: Extraocular movements are intact. Ears, nose, mouth and throat: mucosa moist. Cardiovascular: Regular, Normal peripheral perfusion. Respiratory: Lungs are clear to auscultation, respirations are non-labored, breath sounds are equal, Symmetrical chest wall expansion. Gastrointestinal: Soft, Nontender, Non distended Musculoskeletal: Normal ROM, no deformity. Neurological: Alert and oriented, No focal neurological deficit observed. Psychiatric: Cooperative, appropriate mood & affect. Course Vital Signs: Vital signs: Vital Signs Temperature 97.6 F 11/16/24 11:09 Pulse Rate 64 11/16/24 13:00 Respiratory Rate 16 11/16/24 11:09 Blood Pressure 122/87 11/16/24 13:00 Pulse Oximetry 94 11/16/24 13:00 Oxygen Delivery Me thod Room Air 11/16/24 13:00 MDM - Dizziness Medical Decision Making Medical decision making: Differential diagnosis including but not limited to and based on the above HPI, review of systems and physical exam: for patient with complaint of dizziness: stroke, hypotension, hypertension, infection, vertigo, orthostasis Orders placed to evaluate differential diagnosis based on the above differential, HPI and physical exam EKG: Time 1121. Rate 61. Normal sinus rhythm, No ST-T changes, no ectopy, paced rhythm, this was reviewed and interpreted by myself the emergency room physician at 1126 Chest x-ray: No acute process. No infiltrate. No pneumothorax. This was reviewed and interpreted by myself the emergency room physician. I also reviewed the radiology report. Repeat EKG: Time 1241. Rate 65. Normal sinus rhythm, No ST-T changes, no ectopy, paced rhythm, this was reviewed and interpreted by myself the emergency room physician at 1245. No changes from EKG done earlier today in the emergency room. CT head: No acute intracranial process. no intracranial hemorrhage, no evidence of infarct. no evidence of acute fracture.This was reviewed and interpreted by myself the ER physician. CT of the cervical spine: No fracture. Good alignment. No step-offs. This was reviewed and interpreted by myself the emergency room physician. I also reviewed the radiologist report. Lab Review: Laboratory results were reviewed and interpreted by myself the emergency room physician. Lab work is unremarkable. No leukocytosis. No anemia. No renal failure. No hyponatremia. Liver enzymes are normal. Flu is negative but COVID is positive. This likely would explain the patient's symptoms. He did have some cough last week. The fogginess of thought and vertigo may also be associated with this. I reviewed the patient's medical record. Reexamination: Patient remained stable. No increased work of breathing. No altered mental status. No focal motor deficits. Assessment and plan: COVID-19 Benign positional vertigo - Discharged home - Discussed plan with patient. Answered any questions. - Evaluation and treatment of this problem were appropriate in the emergency setting. Lab Data 11/16/24 11:40 11/16/24 11:40 Radiology Impressions Chest X-Ray 11/16/24 11:18 IMPRESSION: No radiographic evidence of acute cardiopulmonary disease. Head CT 11/16/24 11:18 IMPRESSION: 1. No evidence of intracranial hemorrhage or mass effect. 2. No acute intracranial findings. Laboratory Results WBC 5.42 10^3/uL (3.29-11.43) 11/16/24 11:40 RBC 4.19 10^6/uL (3.85-5.65) 11/16/24 11:40 Hgb 12.80 g/dL (11.27-16.99) 11/16/24 11:40 Hct 39.7 % (37-53) 11/16/24 11:40 MCV 94.7 fl (82-101) 11/16/24 11:40 MCH 30.5 pg (27-33) 11/16/24 11:40 MCHC 32.2 g/dL (30-55) 11/16/24 11:40 RDW 12.9 % (12.1-15.1) 11/16/24 11:40 Plt Count 190 10^3/cmm (157-399) 11/16/24 11:40 MPV 9.6 fL (7.4-10.4) 11/16/24 11:40 Neut % (Auto) 45.8 % 11/16/24 11:40 Lymph % (Auto) 45.2 % 11/16/24 11:40 [place] % (Auto) 5.5 % 11/16/24 11:40 Eos % (Auto) 2.6 % 11/16/24 11:40 Baso % (Auto) 0.7 % 11/16/24 11:40 Neut # (Auto) 2.48 10^3/uL (1.8-7.7) 11/16/24 11:40 Lymph # (Auto) 2.5 10^3/uL (0.8-4.8) 11/16/24 11:40 [place] # (Auto) 0.3 10^3/uL (0.2-0.9) 11/16/24 11:40 Eos # (Auto) 0.1 10^3/uL (0.0-0.8) 11/16/24 11:40 Baso # (Auto) 0.0 10^3/uL (0.0-0.1) 11/16/24 11:40 Nucleated RBC % (auto) 0 % 11/16/24 11:40 Nucleated RBCs # 0.0 /100WBC 11/16/24 11:40 Sodium 139 mmol/L (136-145) 11/16/24 11:40 Potassium 4.4 mmol/L (3.5-5.1) 11/16/24 11:40 Chloride 106 mmol/L (98-107) 11/16/24 11:40 Carbon Dioxide 22 mmol/L (22-29) 11/16/24 11:40 Anion Gap 15.4 (5-19) 11/16/24 11:40 BUN 9 mg/dL (8-23) 11/16/24 11:40 Creatinine 0.7 mg/dL (0.7-1.2) 11/16/24 11:40 GFR Calculation Not Reportable 11/16/24 11:40 Glucose 97 mg/dL (65-115) 11/16/24 11:40 Calculated Osmolality 287 mOsm/kg (285-295) 11/16/24 11:40 Lactic Acid 1.1 mmol/L (0.5-2.2) 11/16/24 11:40 Calcium 9.0 mg/dL (8.5-10.5) 11/16/24 11:40 Total Bilirubin 0.6 mg/dL (0.15-1.2) 11/16/24 11:40 AST 23 U/L (0-40) 11/16/24 11:40 ALT 22 U/L (0-41) 11/16/24 11:40 Alkaline Phosphatase 73 U/L (40-130) 11/16/24 11:40 Troponin T Baseline 14 ng/L (0-15) 11/16/24 11:40 Total Protein 7.4 g/dL (6.6-8.7) 11/16/24 11:40 Albumin 4.3 g/dL (3.5-5.2) 11/16/24 11:40 Globulin 3.1 g/dL (1.3-4.6) 11/16/24 11:40 Urine Color Yellow (Yellow) 11/16/24 12:11 Urine Appearance Clear (CLEAR) 11/16/24 12:11 Urine pH 7.0 (5-7) 11/16/24 12:11 Ur Specific [place] 1.007 (1.005-1.030) 11/16/24 12:11 Urine Protein Negative (Negative) 11/16/24 12:11 Urine Glucose (UA) Negative (Normal) 11/16/24 12:11 Urine Ketones Negative (Negative) 11/16/24 12:11 Urine Blood Non-haemolysed trace (Negative) 11/16/24 12:11 Urine Nitrate Negative (Negative) 11/16/24 12:11 Urine Bilirubin Negative (Negative) 11/16/24 12:11 Urine Urobilinogen 0.2 mg/dL (Negative) 11/16/24 12:11 Ur Leukocyte Esterase Negative (Negative) 11/16/24 12:11 Urine RBC 3-5 /hpf (0-2) 11/16/24 12:11 Urine WBC 0-5 /hpf (0-5) 11/16/24 12:11 Ur Squamous Epith Cells 0-5 /hpf (0-5) 11/16/24 12:11 Amorphous Sediment Not Reportable 11/16/24 12:11 Urine Bacteria None seen /hpf (NONE) 11/16/24 12:11 Hyaline Casts 0-4 /lpf H 11/16/24 12:11 Influenza A (PCR) Negative (Negative) 11/16/24 12:11 Influenza Type B (PCR) Negative (Negative) 11/16/24 12:11 RSV (PCR) Negative (Negative) 11/16/24 12:11 SARS-CoV-2 (PCR) Positive (Negative) A 11/16/24 12:11 All radiology interpretation(s) finalized by discharge Discharge Plan Discharge Patient Disposition: Home Clinical Impression: Benign paroxysmal positional vertigo, COVID-19 Condition: Stable Prescriptions: New meclizine 25 mg tablet 25 mg PO QID PRN (Reason: dizziness) Qty: 20 0RF No Action potassium citrate 10 mEq (1,080 mg) tablet extended release 10 meq PO BID@06,18 multivitamin Tablet 1 tab PO DAILY atorvastatin 40 mg tablet 40 mg PO DAILY@18 Qty: 90 0RF cholecalciferol (vitamin D3) 25 mcg (1,000 unit) capsule 1,000 unit PO DAILY@06 Qty: 90 0RF metoprolol succinate 50 mg tablet extended release 24 hr 50 mg PO DAILY cetirizine 10 mg tablet 10 mg PO DAILY PRN (Reason: allergies) pantoprazole 40 mg tablet,delayed release (DR/EC) 40 mg PO DAILY Rx Instructions: Every other day Eliquis 5 mg Tablet 5 mg PO BID clopidogrel [Plavix] 75 mg Tablet 75 mg PO DAILY Discharge Orders: Discharge ED (Routine); Ordered 11/16/24 Ordered By: Susi Gerardo Referrals: Kelsy Daniel MD [Primary Care Provider] - Discharge Diet: Usual diet Discharge Activity: Increase activity as tolerated Patient Instructions: Benign Paroxysmal Positional Vertigo (ED), Opioid Safety, Pain Management Activity Restrictions/Additional Instructions: Thank you for choosing [facility] for your healthcare needs today. You have been screened and evaluated and felt safe for discharge. Health conditions do change or evolve sometimes and as such it is important that you follow up with your Primary Doctor to be re checked, 3-5 days is a general good time frame for follow up. You are always welcome to return to the ED for re assessment if your symptoms are worsening or you have new concerns Print Language: Namibian Coding Level of Care Code ED Tuber Operator for Aliya Goodwin
[2024-11-16 11:45] VITALS: BP 116/63; PULSE 64; O2SAT 97
[2024-11-16 11:52] LABS: Basophils % 0.7 %; Eosinophils # 0.1 10^3/uL (0.0-0.8); Eosinophils % 2.6 %; Hematocrit 39.7 % (37-53); Lymphocytes # 2.5 10^3/uL (0.8-4.8); Lymphocytes % 45.2 %; Mean Corpuscular HGB Conc 32.2 g/dL (30-55); Mean Corpuscular Hemoglobin 30.5 pg (27-33); Mean Corpuscular Volume 94.7 fl (82-101); Mean Platelet Volume 9.6 fL (7.4-10.4); Monocytes # 0.3 10^3/uL (0.2-0.9); Monocytes % 5.5 %; Neutrophils # 2.48 10^3/uL (1.8-7.7); Neutrophils % 45.8 %; Nucleated Red Blood Cells % 0 %; Platelet Count 190 10^3/cmm (157-399); Red Blood Count 4.19 10^6/uL (3.85-5.65); Red Cell Distribution Width 12.9 % (12.1-15.1); White Blood Count 5.42 10^3/uL (3.29-11.43)
[2024-11-16 12:10] VITALS: BP 101/83; PULSE 68; O2SAT 94
[2024-11-16 12:19] LABS: Lactic Sepsis W/Reflex 1.1 mmol/L (0.5-2.2)
[2024-11-16 12:20] LABS: Alanine Aminotransferase 22 U/L (0-41); Albumin Level 4.3 g/dL (3.5-5.2); Alkaline Phosphatase 73 U/L (40-130); Anion Gap 15.4 (5-19); Aspartate Amino Transferase 23 U/L (0-40); Blood Urea Nitrogen 9 mg/dL (8-23); Carbon Dioxide 22 mmol/L (22-29); Chloride 106 mmol/L (98-107); Creatinine Clr Calc Pharmacy 86.4049; Globulin 3.1 g/dL (1.3-4.6); Glucose 97 mg/dL (65-115); Osmolality Calculated 287 mOsm/kg (285-295); Potassium 4.4 mmol/L (3.5-5.1); Sodium 139 mmol/L (136-145); Total Bilirubin 0.6 mg/dL (0.15-1.2); Total Protein 7.4 g/dL (6.6-8.7)
[2024-11-16 12:21] LABS: Troponin(5th) Baseline 14 ng/L (0-15)
--- NOTE | 2024-11-16 12:41 | ECG_ITS ---
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 Measurements Intervals [place] Rate: 65 P: 151 SD: 196 QRS: 4 QRSD: 114 T: 16 QT: 447 QTc: 466 Interpretive Statements ELECTRONIC ATRIAL PACEMAKER LOW QRS VOLTAGE IN PRECORDIAL LEADS [QRS DEFLECTION < 1.0 mV IN CHEST LEADS] MODERATE INTRAVENTRICULAR CONDUCTION DELAY [110+ ms QRS DURATION] MINIMAL ST DEPRESSION [0.025+ mV ST DEPRESSION] ABNORMAL RHYTHM ECG Compared to ECG 11/16/2024 11:21:41 Intraventricular conduction delay now present Incomplete right bundle-branch block no longer present ST (T wave) deviation still present Electronically Signed On 11-16-2024 19:53:11 CDT by Georgie Granados M.D. [id number] [id number]
[2024-11-16 13:00] VITALS: BP 122/87; PULSE 64; O2SAT 94
[2024-11-16 13:03] LABS: Bilirubin Urine Negative (Negative); Blood Urine Non-haemolysed trace (Negative); Glucose Urine UA Negative (Normal); Ketones Urine Negative (Negative); Leukocyte Esterase Urine Negative (Negative); Nitrate Urine Negative (Negative); Protein Urine Negative (Negative); Specific Gravity, Urine 1.007 (1.005-1.030); Urine Appearance Clear (CLEAR); Urine Color Yellow (Yellow); Urobilinogen Urine 0.2 mg/dL (Negative)
[2024-11-16 13:08] LABS: Influenza A NEGATIVE (Negative); Influenza B NEGATIVE (Negative); Respiratory Syncytial Virus Ce NEGATIVE (Negative)
[2024-11-16 13:09] LABS: Bacteria Urine None Seen /hpf; Hyaline Casts Urine 0-4 /lpf; Squamous Epithelial Cell Urine 0-5 /hpf (0-5); WBC Urine 0-5 /hpf (0-5)
[2024-11-16 13:24] LABS: SARS-CoV-2 PCR Positive (Negative)
[2024-11-16 13:46] VITALS: BP 133/78; PULSE 66; O2SAT 93
== END 2024-11-16 13:40 | disposition home or self-care (01) ==
PROVIDERS: Emergency Provider Emergency Medicine; PCP Family Medicine
DX: H81.10 Benign paroxysmal vertigo, unspecified ear (principal); U07.1 COVID-19; Z11.52 Encounter for screening for COVID-19; Z79.01 Long term (current) use of anticoagulants; Z79.02 Long term (current) use of antithrombotics/antiplatelets; I10 Essential (primary) hypertension; Z86.73 Personal history of transient ischemic attack (TIA), and cerebral infarction without residual deficits; E78.5 Hyperlipidemia, unspecified; Z95.0 Presence of cardiac pacemaker
CPT/HCPCS: 36415; 70450; 71045; 72125; 80053; 81001; 83605; 84484; 85025; 87040; 87637; 93005; 99285

== ENCOUNTER → 2025-02-15 12:48 | Outpatient (BNVA) | payer OTHER, SELFPAY | PROVIDERS: PCP Family Medicine; Visit Provider Internal Medicine Cardiovascular Disease | DX: Z45.018 Encounter for adjustment and management of other part of cardiac pacemaker (principal) | CPT/HCPCS: 93296 ==

== ENCOUNTER 2025-04-20 11:15 | Outpatient (CLI) | payer OTHER, SELFPAY ==
--- NOTE | 2025-04-20 11:30 | USCV_ITS ---
Servando Whitmore Age: 79 Gender: M : 1945 Exam Date: 04/20/2025 12:03 Ordering Phys: Michelle Rodrigues Technologist: Exam Location: [facility] [place] Indication: AAA HISTORY: Diameter (cm) AP x Transverse x Length Velocity (cm/s) Waveform Prox Aorta: 2.10 x 2.90 x 47.50 Triphasic Mid Aorta: 2.50 x 2.80 x 67.90 Distal Aorta: 3.40 x 3.00 x 57.50 Right Iliac Prox: 2.63 x 3.07 x 26.80 Left Iliac Prox: 1.29 x 1.71 x 26.80 Stent Prox Landing x x Aneurysmal Sac Max x x Lt Lat Sac Dim Rt Lat Sac Dim Stent Dist Landing x x Right Iliac Stent x x Left Iliac Stent x x Right Renal Art Left Renal Art FINDINGS: CONCLUSIONS Distal AAA measuring 3.4 x 3.0cm AP x trans Moderate atheromatous disease 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
== END 2025-04-20 11:16 | disposition home or self-care (01) ==
LOC: RAD 11:16
PROVIDERS: PCP Family Medicine; Visit Provider Nurse Practitioner Family
DX: I71.40 Abdominal aortic aneurysm, without rupture, unspecified (principal); Z87.74 Personal history of (corrected) congenital malformations of heart and circulatory system; Z86.718 Personal history of other venous thrombosis and embolism; Z95.0 Presence of cardiac pacemaker; I48.91 Unspecified atrial fibrillation; I25.10 Atherosclerotic heart disease of native coronary artery without angina pectoris; I72.3 Aneurysm of iliac artery
CPT/HCPCS: 93978

== ENCOUNTER → 2025-05-02 10:49 | Outpatient (BNVA) | payer OTHER, SELFPAY | PROVIDERS: PCP Family Medicine; Visit Provider Internal Medicine Cardiovascular Disease | DX: I71.40 Abdominal aortic aneurysm, without rupture, unspecified (principal); I72.3 Aneurysm of iliac artery; Z95.0 Presence of cardiac pacemaker; Z95.2 Presence of prosthetic heart valve; Z86.73 Personal history of transient ischemic attack (TIA), and cerebral infarction without residual deficits; Z86.718 Personal history of other venous thrombosis and embolism; Z79.01 Long term (current) use of anticoagulants | CPT/HCPCS: 99214 ==

== ENCOUNTER 2025-05-22 14:46 | Outpatient (CLI) | payer OTHER, SELFPAY ==
--- NOTE | 2025-05-22 15:00 | CT_ITS ---
WS: [id number] CT ANGIOGRAPHY ABDOMEN AND PELVIS HISTORY: Aneurysm of the iliac artery TECHNIQUE: CT angiogram is performed during IV injection. Reformation images reviewed. All CT scans at [facility] use at least one of these dose optimization techniques: automated exposure control; mA and/or kV adjustment per patient size (includes targeted exams where dose is matched to clinical indication); or iterative reconstruction. CONTRAST: Omnipaque 350; 100 mL IV. DLP: 634.47 mGy.cm COMPARISON: 10/24/2021, ultrasound 04/20/2025 Cardiac pacer wires in the RIGHT heart. Mild dependent changes at the lung bases. Moderate cardiomegaly. No pericardial or pleural effusions. Small hiatal hernia. Abdominal aorta: Good IV contrast opacification of the abdominal aorta. Ectatic aorta. Mild aneurysmal dilatation of the infrarenal aorta measuring 3.5 cm. Aneurysm extends to the bifurcation. Moderate stenosis involving the origin of the celiac axis. Small amount of plaque at the origin of the celiac axis and the SMA. Calcified plaque bilaterally in the renal arteries. Moderate stenosis involving the proximal LEFT renal artery. There is no occlusion. Tortuous proximal RIGHT common iliac artery. Focal stenosis involving the origin of the RIGHT common iliac artery with stenosis 50 to 60%. Post aneurysmal dilatation of the iliac measuring up to 2.2 cm. There is no occlusion. The internal and external iliacs are both patent. Mild plaque in the LEFT common iliac artery. There is mildly ectatic distal LEFT common iliac artery to 2.0 cm. LEFT internal and external iliacs are patent. Prior cholecystectomy. Liver and spleen are unremarkable. Negative pancreas. No adrenal mass. Mild cortical thinning of each kidney. 2.7 cm cyst posterior superior pole LEFT kidney. Stomach is overly distended with food products. No small bowel obstruction. Fat-containing umbilical hernia. Sigmoid diverticulosis without acute diverticulitis. Fat-containing inguinal canals. Moderate degenerative disc disease and osteophytosis throughout the lumbar spine. CT/CT angio abdomen pelvis [id number] IMPRESSION: 1. Infrarenal abdominal aortic aneurysm 3.5 cm. 2. Focal stenosis origin of the RIGHT common along artery. Post obstructive an eurysmal dilatation to 2.2 cm. 3. Distal LEFT common iliac artery is also mildly dilated and ectatic to 2.0 c m. 4. Moderate stenosis proximal LEFT renal artery. No occlusion. 5. Moderate stenosis celiac axis. 6. Prior cholecystectomy.
[2025-05-22 15:18] LABS: Blood Urea Nitrogen 8 mg/dL (8-23)
[2025-05-22] MEDS: iohexol 350 mg/mL 500 mL Btl (per mL) IV (15:24)
== END 2025-05-22 14:47 | disposition home or self-care (01) ==
LOC: RAD 14:46
PROVIDERS: PCP Family Medicine; Visit Provider Internal Medicine Cardiovascular Disease
DX: I71.43 Infrarenal abdominal aortic aneurysm, without rupture (principal); I72.3 Aneurysm of iliac artery; I77.1 Stricture of artery; I70.1 Atherosclerosis of renal artery; Z90.49 Acquired absence of other specified parts of digestive tract
CPT/HCPCS: 74174; 82565; 84520

== ENCOUNTER 2025-05-22 15:34 | Emergency (ER) | payer OTHER, SELFPAY ==
--- NOTE | 2025-05-22 15:35 | CT_ITS ---
WS: [id number] CT HEAD NONCONTRAST HISTORY: Symptoms of acute stroke TECHNIQUE: Contiguous axial imaging performed through the brain. Bone and soft tissue windows. Sagittal and coronal reformats reviewed. All CT scans at [facility] use at least one of these dose optimization techniques: automated exposure control; mA and/or kV adjustment per patient size (includes targeted exams where dose is matched to clinical indication); or iterative reconstruction. DLP: 1097.58 mGy COMPARISON: 11/16/2024. This CT of the head for stroke was performed within less than an hour post CT angiogram of the abdomen and pelvis. Therefore there is enhancement throughout the brain limiting evaluation for subtle areas of hemorrhage. No acute areas of significant hemorrhage or mass effect identified. There is subtle area of increased density in the RIGHT lorenz radiata is probably a vessel. Remote infarct with encephalomalacia involving the LEFT occipital lobe. Mild atrophy and small vessel changes. Prominent perivascular space RIGHT inferior basal ganglia. Ventricles: Ex vacuo dilatation occipital horn of the LEFT lateral ventricle from secondary to the infarct. No inferior displacement of cerebellar tonsils. Paranasal sinuses: As visualized are clear. Mastoid air cells: Well pneumatized. Calvarium and scalp: Skull is intact with no soft tissue edema or swelling. CT/CT head thrombolytic 81994 IMPRESSION: 1. CT head was performed within [address] angiogram of the abdomen and pelvis. Subtle areas of hemorrhage would not be visualized due to the enhancing brain parenchyma. 2. Remote LEFT occipital lobe infarct with encephalomalacia. 3. No large areas of hemorrhage. 4. Subtle area of increased density in the RIGHT lorenz radiata is most likely a vessel enhancing. 5. Mild cerebral atrophy and small vessel disease. Consider follow-up noncontrast CT head in 24 hours to exclude subtle areas of h emorrhage or follow-up MRI brain.
--- OUTSIDE RECORDS SUMMARY | 2025-05-22 15:44 | XMS_ITS | Encounter Summary ---
Author Organization [facility] Address [address] [place] [address] Care Team Providers Care High Lead Yarder Name Role Phone Magalis Mcgovern RUBBER TIRE CURER Primary Care Provider [phone] Encounter Details Date Type Department Care Team (Late st Contact Info) Description 03/25/2005 Outpatient Historical [facility] End[facility] [place] [address] [place] [phone] Jasper Michaels MD NO ADDRESS ON FILE SKIN HYPERTRO/ATROPH NOS (Primary Dx) Social History Tobacco Use Types Packs/Day Years Used Date Smoking Tobacco: Never Assessed Sex and Gender Information Value Date Recorded Sex Assigned at Not on file 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
--- OUTSIDE RECORDS SUMMARY | 2025-05-22 15:44 | XMS_ITS | Encounter Summary ---
Author Organization [facility] Address [address] [place] [address] Care Team Providers Care Chief Operator Lock Tender Name Role Phone Magalis Mcgovern NP Primary Care Provider Encounter Details Date Type Department Care Team (Late st Contact Info) Description 03/25/2005 Outpatient [facility] Gastroenterology[address] [place] [address] Jasper Michaels MD NO ADDRESS ON FILE GI SYSTEM SYMPTOMS NEC (Primary Dx) Social History Tobacco Use Types Packs/Day Years Used Date Smoking Tobacco: Never Assessed Sex and Gender Information Value Date Recorded Sex Assigned at Not on file Legal Sex Male 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
--- OUTSIDE RECORDS SUMMARY | 2025-05-22 15:44 | XMS_ITS | Clinical Summary ---
Author Organization [facility] Address [address] [place] [address] Care Team Providers Care Well Control Instructor Name Role Phone Magalis Mcgovern MITTEN SEWER Primary Care Provider Allergies No known active allergies Medications ASPIRIN 325 mg Oral Tab Take 1 Tab by mouth daily. Active LIPITOR 20 mg Oral Tab Take 1 Tab by mouth daily. Active CELEXA 20 mg Oral Tab Take 1 Tab by mouth daily. Active AMITRIPTYLINE 10 mg Oral Tab Take 1 Tab by mouth daily. Active TOPAMAX 25 mg Oral Tab Take 1 Tab by mouth daily. 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 Gender Identity Not on file Sexual Orientation Not on file Last Filed Vital Signs Vital Sign Reading Time Taken Comments Blood Pressure 138/80 10/11/2007 12:00 AM CDT Pulse - - Temperature - - Respiratory Rate - - Oxygen Saturation - - Inhaled Oxygen Concentration - - Weight 99.8 kg (220 lb) 10/11/2007 12:00 AM CDT Height - - Body Mass Index - - Plan of Treatment Health Maintenance Due Date Last Done Comments DTAP/TDAP/TD VACCINES (1 - Tdap) 1966 PNEUMOCOCCAL VACCINE 50+ YEARS (1 of 1 - PCV) 08/26/18 98 ZOSTER VACCINE (1 of 2) 1997 RSV VACCINE (60+ or ) (1 - 1-dose 75+ series) 2022 INFLUENZA VACCINE (#1) 2025 COLORECTAL SCREENING Discontinued 03/25/2005 Colorectal Cancer Screening Discontinued FIT-DNA Q 3 years Discontinued FIT/FOBT Q 1 year Discontinued Flex Sig/CT Colonography Q 5 years Discontinued Care Teams Well Control Instructor Relationship Specialty Start Date End Date Magalis Mcgovern NP PCP - General NURSE PRACTITIONER 01/09/16
--- OUTSIDE RECORDS SUMMARY | 2025-05-22 15:44 | XMS_ITS | Clinical Summary ---
Author Organization [facility] Address [address] [place]: Epic Prelude ADT [place] [address] Care Team Providers Care Rose Grower Name Role Phone Magalis Mcgovern UMBRELLA FINISHER Primary Care Provider Allergies No known active allergies Medications potassium citrate (UROCIT-K) 10 mEq (1,080 mg) Extended Release tablet Take 10 mEq by mouth 2 times daily. Active famotidine (PEPCID) 20 mg tablet Take 20 mg by mouth 2 times daily. Active topiramate (TOPAMAX) 50 mg tablet Take 50 mg by mouth 2 times daily. Active mirtazapine (REMERON) 30 mg tablet Take 30 mg by mouth daily at bedtime. Active atorvastatin (LIPITOR) 40 mg tablet Take 40 mg by mouth daily. Active clopidogreL (PLAVIX) 75 mg Tablet Take 75 mg by mouth daily. Active cholecalciferol , Vitamin D3, (VITAMIN D3) 25 mcg (1,000 unit) Capsule Take 1,000 Units by mouth daily. Active montelukast (SINGULAIR) 10 mg tablet Take 10 mg by mouth daily at bedtime. Active apixaban (ELIQUIS) 5 mg tablet Take 5 mg by mouth 2 times daily. Active multivitamin (DAILY-ELIOT) tablet Take 1 Tablet by mouth daily. Active busPIRone (BUSPAR) 10 mg tablet Take 10 mg by mouth 3 times daily. Take 1/2 tablet by mouth twice daily for anxiety. Do not take with grapefruit juice Active amitriptyline (ELAVIL) 25 mg tablet Take 25 mg by mouth daily at bedtime. Active metoprolol succinate (TOPROL XL) 200 mg Extended Release 24 hour tablet Take 200 mg by mouth daily. Take one- half tablet by mouth once a day for heart/ blood pressure. Active pantoprazole (PROTONIX) 40 mg Tablet, Delayed Release (E.C.) Take 40 mg by mouth daily. Active Active Problems Problem Noted Date Diagnosed Date Pacemaker 06/13/2021 Overview (06/13/2021): Biotronik placed per Dr. Collado 01/2021 History of CVA (cerebrovascular accident) 2020 S/P VSD repair 06/13/2021 Sinus pause 02/21/2021 Syncope 02/21/2021 Sinus bradycardia seen on manufacturing management associate 2020 Encounters Date Type Department Care Team Description 03/28/2025 External Device Data ST[facility] ABSTRACTION Provider, Abstract 03/28/2025 External Device Data ST[facility] ABSTRACTION Provider, Abstract 03/14/2025 External Device Data ST[facility] ABSTRACTION Provider, Abstract from Last 3 Months Immunizations Immunization Administration Dates Next Due (Besstech)(12 YR UP) COVID-19 VACCINE - EMERGENCY USE AUTHORIZATION, MRNA, [id number](PF) 30 MCG/0.3 ML IM SUSP 10/19/2020,09/21/2020 Social History Tobacco Use Types Packs/Day Years Used Date Smoking Tobacco: Never Smokeless Tobacco: Never Sex and Gender Information Value Date Recorded Sex Assigned at Not on file Legal Sex Male 12:03 AM BRUSHER AND SHEARER Gender Identity Not on file Sexual Orientation Not on file Last Filed Vital Signs Vital Sign Reading Time Taken Comments Blood Pressure 118/76 01/20/2022 10:09 AM CDT Pulse 63 01/20/2022 10:09 AM CDT Temperature 36.1 C (97 F) 02/22/2021 12:41 PM CDT Respiratory Rate 18 02/22/2021 1:30 PM CDT Oxygen Saturation 95% 02/22/2021 1:30 PM CDT Inhaled Oxygen Concentration - - Weight 90.7 kg (200 lb) 01/26/2025 12:31 PM CDT Height 177.8 cm (5' 10 ) 01/26/2025 12:31 PM CDT Body Mass Index 28.7 01/26/2025 12:31 PM CDT Plan of Treatment Health Maintenance Due Date Last Done Comments RSV VACCINE (60+ or ) (1 - 1-dose 75+ series) 2022 INFLUENZA VACCINE (#1) 2025 , 04/23/2023, 04/30/2022, Additional history exists COVID-19 Vaccine (3 - 2024-2 6 season) 2025 10/19/2020, 09/21/2020 DTAP/TDAP/TD VACCINES (2 - T d or Tdap) 01/21/2028 01/20/2018 PNEUMOCOCCAL VACCINE 50+ YEARS Completed 08/17/2019 , 01/20/2018 ZOSTER VACCINE Completed 11/29/2019, 08/17/2019 Medical Devices Implanted Type Area Relief Salesperson Device Identifier Shelf Expiration Date Model / Serial / Lot Lead Pacemaker Solia S [id number] - [id number] Implanted:Qty: 1 on 02/22/2021 by Shaye Collado MD at [facility] Lead Left: Chest [employer] 11/23/2022 [id number] / [id number] / [id number] Lead Pacemaker Solia S [id number] - [id number] Implanted:Qty: 1 on 02/22/2021 by Shaye Collado MD at [facility] Lead Left: Chest [employer] 01/23/2023 [id number] / [id number] / [id number] Pacemaker Edora 8 [id number] - [id number] Implanted:Qty: 1 on 02/22/2021 by Shaye Collado MD at [facility] Pacemaker Left: Chest [employer] 05/26/2022 [id number] / [id number] / [id number] Insurance MEDICARE PART A AND B [facility] [employer] [facility] [employer] * Guarantor: [facility] (C) Account Type Relation to Patient Date of Phone Billing Address Corporate Other DEFAULT ADDRESS [place] [id number] [facility] [employer] Advance Directives For more information, please contact: [phone] * Full Code (Latest Code Status on File) Date Activated Date Inactivated Comments 02/22/2021 10:51 AM 02/22/2021 7:27 PM * Full Code Date Activated Date Inactivated Comments 02/21/2021 4:48 PM 02/22/2021 10:50 AM Care Teams Rose Grower Relationship Specialty Start Date End Date Magalis Mcgovern NP [address] [place] [phone] PCP - General NURSE PRACTITIONER 01/09/16
--- OUTSIDE RECORDS SUMMARY | 2025-05-22 15:44 | XMS_ITS | Encounter Summary ---
Author Organization [facility] Address [address] [place] [address] Care Team Providers Care Upholstery Bundler Name Role Phone Magalis Mcgovern NP Primary Care Provider Encounter Details Date Type Department Care Team (Late st Contact Info) Description 03/25/2005 Outpatient Historical [facility] Gen Spec Surg [address] [address] Silverio Murphy MD [address] [place] [phone] INT THROMBOS HEMORRHOID (Primary Dx) Social History Tobacco Use Types Packs/Day Years Used Date Smoking Tobacco: Never Assessed Sex and Gender Information Value Date Recorded Sex Assigned at Not on file Legal Sex Male 2:40 AM OCC THER Gender Identity Not on file Sexual Orientation Not on file documented as of this encounter Plan of Treatment Not on file documented as of this encounter Visit Diagnoses Diagnosis Internal thrombosed hemorrhoids- Primary documented in this encounter Care Teams Upholstery Bundler Relationship Specialty Start Date End Date Magalis Mcgovern NP PCP - General NURSE PRACTITIONER 01/09/16 documented as of this encounter
--- OUTSIDE RECORDS SUMMARY | 2025-05-22 15:44 | XMS_ITS | Encounter Summary ---
Author Organization [facility] Address [address] [place] [address] Care Team Providers Care Habilitation Worker Name Role Phone Magalis Mcgovern FAA CERTIFIED POWERPLANT MECHANIC Primary Care Provider Encounter Details Date Type Department Care Team (Latest Contact Info) Description 11/16/2007 Outpatient Historical [facility] Cardiovascular Services [address] [place] [address] Kimi Berrios MD [address] [address] Unspecified Cerebral Artery Occlusion with Cerebral Infarction (CMS/HCC) Social History Tobacco Use Types Packs/Day Years Used Date Smoking Tobacco: Never Assessed Sex and Gender Information Value Date Recorded Sex Assigned at Not on file Legal Sex Male 2:40 AM EVS TECH Gender Identity Not on file Sexual Orientation Not on file documented as of this encounter Plan of Treatment Not on file documented as of this encounter Visit Diagnoses Diagnosis Unspecified cerebral artery occlusion with cerebral infarction documented in this encounter Care Teams Habilitation Worker Relationship Specialty Start Date End Date Magalis Mcgovern NP PCP - General NURSE PRACTITIONER 01/09/16 documented as of this encounter
[2025-05-22 15:47] VITALS: BP 121/67; PULSE 73; RESP 18; TEMP 36.8; O2SAT 94; BMI 28.7
--- NOTE | 2025-05-22 15:52 | W.ED.NEUROSD ---
HPI - Neuro Symptoms/Deficit General: Chief Complaint: Neuro Symptoms/Deficit Stated Complaint: stroke alert Time Seen by Provider: 05/22/25 15:35 History of Present Illness: 79-year-old man with a history of bilateral DVT, chronic anticoagulation on Eliquis, migraine headaches, interstitial lung disease, hyperlipidemia, stroke, hypertension and diverticulosis. Most recent visit was 2 cardiology where he was evaluated for an abdominal aortic root aneurysm. Was found to have a small aneurysm in the infrarenal aorta. He was actually getting a CT scan for this today. History of posterior cerebral artery stroke in 2006. Had a dense visual field loss. Who presents to the emergency room with rapid response after developing amnestic type symptoms. Concern for stroke. Family says he has had these episodes multiple times. Upon my arrival to CT scan Dr. Nuno was already seeing him. He had an episode where he became confused and could not remember where he was. No focal motor deficits. No slurred speech. Upon my arrival symptoms had almost completely resolved Related Data Home Medications ?Medication ?Instructions ?Recorded ?Confirmed potassium citrate 10 mEq (1,080 10 meq PO BID@06,18 08/09/19 11/16/24 mg) tablet,extended release multivitamin 1 tab PO DAILY 07/18/21 11/16/24 cetirizine 10 mg tablet 10 mg PO DAILY PRN allergies 08/11/24 11/16/24 apixaban 5 mg tablet (Eliquis) 5 mg PO BID 09/27/24 11/16/24 Held on 09/28/24. Instructions: Resume on 09/29/24. clopidogrel 75 mg tablet (Plavix) 75 mg PO DAILY 09/27/24 11/16/24 Held on 09/28/24. Instructions: Resume on 09/29/24. pantoprazole 40 mg tablet,delayed 40 mg PO QAM 11/01/24 11/16/24 release metoprolol succinate 200 mg 100 mg PO DAILY 11/16/24 11/16/24 tablet,extended release 24 hr omega 3-kgh-snu-fish oil 1,000 mg 1 cap PO DAILY 11/16/24 11/16/24 (120 mg-180 mg) capsule (Fish Oil) fluticasone propionate 50 2 spray intranasal DAILY 05/02/25 mcg/actuation nasal spray,suspension (Flonase Allergy Relief) hydroxyzine HCl 10 mg tablet 10 mg PO TID PRN 05/02/25 Previous Rx's ?Medication ?Instructions ?Recorded cholecalciferol (vitamin D3) 25 1,000 unit PO DAILY@06 #90 caps 04/17/21 mcg (1,000 unit) capsule atorvastatin 40 mg tablet 40 mg PO DAILY@18 #90 tabs 06/26/21 levetiracetam 500 mg tablet 500 mg PO BID #30 tabs 05/22/25 (Keppra) Allergies Allergy/AdvReac Type Severity Reaction Status Date / Time hydromorphone (From Dilaudid) Allergy UNK Verified 05/02/25 10:57 Review of Systems Narrative: Constitutional symptoms: Negative except as documented in HPI. Skin symptoms: Negative except as documented in HPI. Eye symptoms: Negative except as documented in HPI. ENMT symptoms: Negative except as documented in HPI. Respiratory symptoms: Negative except as documented in HPI. Cardiovascular symptoms: Negative except as documented in HPI. Gastrointestinal symptoms: Negative except as documented in HPI. Genitourinary symptoms: Negative except as documented in HPI. Musculoskeletal symptoms: Negative except as documented in HPI. Neurologic symptoms: Negative except as documented in HPI. Psychiatric symptoms: Negative except as documented in HPI. Endocrine symptoms: Negative except as documented in HPI. 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 Brother CAD (coronary artery disease) Chronic kidney disease (CKD) Lung disease Sister Cancer Chronic kidney disease (CKD) Family/Other Lung disease Denies family history of Diabetes Clotting disorder Dementia Suicide Anesthesia complication Bleeding disorder Stroke Social History Smoking and tobacco/nicotine status: never used tobacco/nicotine Second hand smoke exposure: No Alcohol intake: never Substance/Drug Use: never Adopted: No Caregiver/support person: No Lives independently: Yes Household members: spouse Housing: House Marital status: service: Yes status details: 4 YEARS branch: [employer] Current occupational status: retired and disabled 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 Skin: Warm, dry. Head: Normocephalic, atraumatic. Neck: Supple, trachea midline. Eye: Extraocular movements are intact. Ears, nose, mouth and throat: mucosa moist. Cardiovascular: Regular, Normal peripheral perfusion. Respiratory: Lungs are clear to auscultation, respirations are non-labored, breath sounds are equal, Symmetrical chest wall expansion. Gastrointestinal: Soft, Nontender, Non distended Musculoskeletal: Normal ROM, no deformity. Neurological: Alert and oriented, No focal neurological deficit observed. Psychiatric: Cooperative, appropriate mood & affect. Course Vital Signs: Vital signs: Vital Signs Temperature 98.2 F 05/22/25 15:47 Pulse Rate 66 05/22/25 17:00 Respiratory Rate 18 05/22/25 15:47 Blood Pressure 104/73 05/22/25 17:00 Pulse Oximetry 92 05/22/25 17:00 Oxygen Delivery Me thod Room Air 05/22/25 17:00 MDM - Neuro Symptoms/Deficit Medical Decision Making Medical decision making: Patient's reason for coming to the emergency room: Patient had amnesia/confusion after CT scan today. Social determinants: Patient is retired. He has a daughter with him today and apparently has a good support network I reviewed the patient's medical record. 79-year-old man with a history of bilateral DVT, chronic anticoagulation on Eliquis, migraine headaches, interstitial lung disease, hyperlipidemia, stroke, hypertension and diverticulosis. Most recent visit was 2 cardiology where he was evaluated for an abdominal aortic root aneurysm. Was found to have a small aneurysm in the infrarenal aorta. He was actually getting a CT scan for this today. History of posterior cerebral artery stroke in 2006. Had a dense visual field loss. Patient's symptoms started about 15 minutes prior to being taken to CT. They have since resolved. He is on Eliquis which would contraindicate TNKase. This was called overhead as a stroke initially. I reviewed the patient's current home meds Patient is chronically anticoagulated on Plavix and Eliquis. Alternate historians: Daughter did provide quite a bit of history. She says he has episodes like this frequently and he had a stroke in the past. This started after that. Differential diagnosis including but not limited to and based on the above HPI, review of systems and physical exam: In this patient with altered mental status: Stroke. Hypoglycemia. Metabolic encephalopathy. Infections such as pneumonia, urinary tract infection, Covid-19, Influenza. Electrolyte abnormalities such as hypernatremia. Renal failure / uremia. Hepatic encephalopathy. Hypoxemia. Hypercapnic respiratory failure. Psychosis. Drug or alcohol intoxication. Medication overdose. Orders placed to evaluate differential diagnosis based on the above differential, HPI and physical exam CT head: No acute intracranial process. No intracranial hemorrhage, no evidence of infarct. No evidence of acute fracture. This was reviewed and interpreted by myself the emergency room physician. I also reviewed the radiology report. Lab Review: Laboratory results were reviewed and interpreted by myself the emergency room physician. Lab work is unremarkable. No leukocytosis. No anemia. No renal failure. Drug screen is negative. Urinalysis is negative for infection. Liver enzymes are normal. Assessment of risk: - Level of risk moderate - Was hospitalization considered? Yes. This patient was having a stroke or continue to have seizures definitely would hospitalize. Reexamination: Patient remained stable. No increased work of breathing. No altered mental status. No focal motor deficits. Consultation: Dr. Nuno was consulted. She recommends Keppra twice daily. Follow-up with her in clinic. 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 History of cerebrovascular accident - Discharged home - Discussed findings and plan with patient. Answered any questions. - All laboratory values were reviewed and interpreted personally by myself, the ER physician - All imaging was reviewed and interpreted personally by myself, the ER physician. - Evaluation and treatment of this problem were appropriate in the emergency setting Lab Data 05/22/25 15:51 05/22/25 16:[address] 05/22/25 15:35 IMPRESSION: 1. CT head was performed within [address] angiogram of the abdomen and pelvis. Subtle areas of hemorrhage would not be visualized due to the enhancing brain parenchyma. 2. Remote LEFT occipital lobe infarct with encephalomalacia. 3. No large areas of hemorrhage. 4. Subtle area of increased density in the RIGHT lorenz radiata is most likely a vessel enhancing. 5. Mild cerebral atrophy and small vessel disease. Consider follow-up noncontrast CT head in 24 hours to exclude subtle areas of hemorrhage or follow-up MRI brain. Laboratory Results WBC 7.01 10^3/uL (3.29-11.43) 05/22/25 15:51 RBC 4.10 10^6/uL (3.85-5.65) 05/22/25 15:51 Hgb 12.70 g/dL (11.27-16.99) 05/22/25 15:51 Hct 38.3 % (37-53) 05/22/25 15:51 MCV 93.4 fl (82-101) 05/22/25 15:51 MCH 31.0 pg (27-33) 05/22/25 15:51 MCHC 33.2 g/dL (30-55) 05/22/25 15:51 RDW 12.7 % (12.1-15.1) 05/22/25 15:51 Plt Count 187 10^3/cmm (157-399) 05/22/25 15:51 MPV 9.6 fL (7.4-10.4) 05/22/25 15:51 Neut % (Auto) 47.8 % 05/22/25 15:51 Lymph % (Auto) 41.8 % 05/22/25 15:51 [place] % (Auto) 5.7 % 05/22/25 15:51 Eos % (Auto) 3.7 % 05/22/25 15:51 Baso % (Auto) 0.9 % 05/22/25 15:51 Neut # (Auto) 3.35 10^3/uL (1.8-7.7) 05/22/25 15:51 Lymph # (Auto) 2.9 10^3/uL (0.8-4.8) 05/22/25 15:51 [place] # (Auto) 0.4 10^3/uL (0.2-0.9) 05/22/25 15:51 Eos # (Auto) 0.3 10^3/uL (0.0-0.8) 05/22/25 15:51 Baso # (Auto) 0.1 10^3/uL (0.0-0.1) 05/22/25 15:51 Nucleated RBC % (auto) 0 % 05/22/25 15:51 Nucleated RBCs # 0.0 /100WBC 05/22/25 15:51 PT 14.60 SECONDS (12.1-14.9) 05/22/25 16:49 INR 1.07 (0.8-1.2) 05/22/25 16:49 APTT 26.8 SECONDS (23.9-36.7) 05/22/25 16:49 Sodium 138 mmol/L (136-145) 05/22/25 16:49 Potassium 4.3 mmol/L (3.5-5.1) 05/22/25 16:49 Chloride 103 mmol/L (98-107) 05/22/25 16:49 Carbon Dioxide 25 mmol/L (22-29) 05/22/25 16:49 Anion Gap 14.3 (5-19) 05/22/25 16:49 BUN 9 mg/dL (8-23) 05/22/25 16:49 Creatinine 0.8 mg/dL (0.7-1.2) 05/22/25 16:49 GFR Calculation Not Reportable 05/22/25 16:49 Glucose 137 mg/dL (65-115) H 05/22/25 16:49 POC Glucose 151 mg/dL (70-110) H 05/22/25 15:52 Calculated Osmolality 287 mOsm/kg (285-295) 05/22/25 16:49 Calcium 9.3 mg/dL (8.5-10.5) 05/22/25 16:49 Total Bilirubin 0.5 mg/dL (0.15-1.2) 05/22/25 16:49 AST 16 U/L (0-40) 05/22/25 16:49 ALT 17 U/L (0-41) 05/22/25 16:49 Alkaline Phosphatase 73 U/L (40-130) 05/22/25 16:49 Total Protein 7.3 g/dL (6.6-8.7) 05/22/25 16:49 Albumin 4.3 g/dL (3.5-5.2) 05/22/25 16:49 Globulin 3.0 g/dL (1.3-4.6) 05/22/25 16:49 Urine Color Yellow (Yellow) 05/22/25 16:56 Urine Appearance Clear (CLEAR) 05/22/25 16:56 Urine pH 7.0 (5-7) 05/22/25 16:56 Ur Specific [place] 1.041 (1.005-1.030) H 05/22/25 16:56 Urine Protein Negative (Negative) 05/22/25 16:56 Urine Glucose (UA) Negative (Normal) 05/22/25 16:56 Urine Ketones Negative (Negative) 05/22/25 16:56 Urine Blood Trace (Negative) A 05/22/25 16:56 Urine Nitrate Negative (Negative) 05/22/25 16:56 Urine Bilirubin Negative (Negative) 05/22/25 16:56 Urine Urobilinogen 1.0 mg/dL (Negative) 05/22/25 16:56 Ur Leukocyte Esterase Negative (Negative) 05/22/25 16:56 Urine RBC 3-5 /hpf (0-2) 05/22/25 16:56 Urine WBC 0-5 /hpf (0-5) 05/22/25 16:56 Ur Squamous Epith Cells 0-5 /hpf (0-5) 05/22/25 16:56 Amorphous Sediment Not Reportable 05/22/25 16:56 Urine Bacteria None seen /hpf (NONE) 05/22/25 16:56 Hyaline Casts 0-4 /lpf H 05/22/25 16:56 Urine Opiates Screen Negative ng/mL (Negative) 05/22/25 16:56 Ur Barbiturates Screen Negative ng/mL (Negative) 05/22/25 16:56 Ur Phencyclidine Scrn Negative ng/mL (Negative) 05/22/25 16:56 Ur Amphetamines Screen Negative ng/mL (Negative) 05/22/25 16:56 U Benzodiazepines Scrn Negative ng/mL (Negative) 05/22/25 16:56 Urine Cocaine Screen Negative ng/mL (Negative) 05/22/25 16:56 U Marijuana (THC) Screen Negative ng/mL (Negative) 05/22/25 16:56 All radiology interpretation(s) finalized by discharge Discharge Plan Discharge Patient Disposition: Home Clinical Impression: 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, History of cerebrovascular accident Condition: Stable Prescriptions: New levetiracetam [Keppra] 500 mg tablet 500 mg PO BID Qty: 30 1RF No Action potassium citrate 10 mEq (1,080 mg) tablet extended release 10 meq PO BID@06,18 multivitamin Tablet 1 tab PO DAILY atorvastatin 40 mg tablet 40 mg PO DAILY@18 Qty: 90 0RF cholecalciferol (vitamin D3) 25 mcg (1,000 unit) capsule 1,000 unit PO DAILY@06 Qty: 90 0RF cetirizine 10 mg tablet 10 mg PO DAILY PRN (Reason: allergies) pantoprazole 40 mg tablet,delayed release (DR/EC) 40 mg PO QAM hydroxyzine HCl 10 mg tablet 10 mg PO TID PRN fluticasone propionate [Flonase Allergy Relief] 50 mcg/actuation spray,suspension 2 spray intranasal DAILY Rx Instructions: administer into each nostril Eliquis 5 mg Tablet 5 mg PO BID clopidogrel [Plavix] 75 mg Tablet 75 mg PO DAILY metoprolol succinate 200 mg Tablet Extended Release 24 Hr 100 mg PO DAILY omega 4-njy-nzs-fish oil [Fish Oil] 1,000 (120-180) mg Capsule 1 cap PO DAILY Discharge Orders: Discharge ED (Routine); Ordered 05/22/25 Ordered By: Susi Gerardo Referrals: Kelsy Daniel MD [Primary Care Provider, Family Practice] Yoko Nuno MD [Physician, Neurology] - 7-10 days Referral Note: Please call for follow-up appointment with Dr. Nuno Patient Instructions: Opioid Safety, Pain Management, Patient Portal & Leonela Instructions Activity Restrictions/Additional Instructions: No driving until cleared by your primary care provider or a neurologist. Thank you for choosing [facility] for your healthcare needs today. You have been screened and evaluated and felt safe for discharge. Health conditions do change or evolve sometimes and as such it is important that you follow up with your Primary Doctor to be re checked, 3-5 days is a general good time frame for follow up. You are always welcome to return to the ED for re assessment if your symptoms are worsening or you have new concerns Print Language: Persian Coding Level of Care Code ED Linen Room Houseperson for Aliya Goodwin
--- NOTE | 2025-05-22 15:53 | PM.SAN ---
Stroke Alert Activation ED Arrival Date: 05/22/25 ED Arrival Time: 15:47 ED Physican at Bedside: 15:40 Last Known Normal/at Baseline: < 1 hour ago Other Last Known Well Infomation: Stroke alert was called at 1530 and CAT scan MLB. I went directly to the CAT scan and learned from Dora that she was preparing the patient for a CT angiogram of the abdomen when he complained of nausea. She helped him onto the bench and thought she would wait to do contrast to make sure he was feeling better. He started asking her what he was doing here. He asked the same questions over and over again. His daughter says he has done this about every 3 months for the last couple of years. None of these episodes have lasted for more than an hour. The episode today lasted for approximately 15 minutes. He has never had any kind of seizure activity. In every case he asks the same questions over and over again and does not know where he is or who he is and sometimes does not recognize family members. He had a left posterior cerebral artery stroke in 2006 and was left with a dense visual field cut. My last visit with him was in February 2008 but I am unable to access it without shutting the system down. Stroke Alert Activated by: Dora Gomez Stroke Alert Activation Time: 15:30 Stroke MD @ Bedside Time: 15:40 NIH Stroke Scale Time: 15:50 NIH stroke score NIHSS: Level Of Consciousness - 1a: 0 Level Of Consciousness Questions - 1b: Both Correct Level Of Consciousness Commands - 1c: Both Correct Best Gaze - 2: Normal Visual Lewis - 3: Complete Hemianopia Facial Palsy - 4: Normal Motor Arm Right - 5: No Drift Motor Arm Left - 5: No Drift Motor Leg Right - 6: No Drift Motor Leg Left - 6: No Drift Limb Ataxia - 7: Absent Sensory - 8: Normal Best Language - 9: No Aphasia Dysarthia - 10: Normal Extinction And Inattention - 11: 0 Score: Total Score: 2 Stroke Alert Data/Treatment Time to CT of Head: 15:35 CT Results Time: 15:40 CT Impression: Old left posterior cerebral artery stroke, otherwise normal tPA Contraindication: tPA Contraindication: Treatment not indcated tPA Admin Prior to Arrival: No Other Patient & Family Education: Transient global amnesia. Patient was reexamined on completion of his CAT scan and his exam is entirely unremarkable. He still feels a little confused but he is fully oriented, knows the date and knows how he got here. His symptoms are consistent with partial seizure. Discussed with Dr. Gerardo and the patient was transferred to the ER to make sure there were no other issues, metabolic or otherwise. Critical Care Time Critical Care Time: 30 - 74 mins A&P Assessment and plan 1. 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 She describes it very clearly and his daughter describes identical episodes occurring at 3-month intervals and lasting less than an hour. He has old left occipital stroke and I am sure he is having focal seizures. These episodes closely resemble transient global amnesia. Plan on starting him on Keppra XR 500 mg 2 tablets daily or 500 mg twice daily, either 1. Dr. Gerardo is going to see him in the ER and start his antiepileptic treatment and I will see him in the clinic in follow-up. Discussed with the patient and his daughter. 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
[2025-05-22 16:06] LABS: Hematocrit 38.3 % (37-53); Hemoglobin 12.70 g/dL (11.27-16.99); Mean Corpuscular HGB Conc 33.2 g/dL (30-55); Mean Corpuscular Hemoglobin 31.0 pg (27-33); Mean Corpuscular Volume 93.4 fl (82-101); Nucleated Red Blood Cells % 0 %; Platelet Count 187 10^3/cmm (157-399); Red Blood Count 4.10 10^6/uL (3.85-5.65); White Blood Count 7.01 10^3/uL (3.29-11.43)
[2025-05-22] MEDS: levETIRAcetam 1,000 MG/100 ML PREMIX 400 MG IV (16:22)
--- NOTE | 2025-05-22 16:34 | ECG_ITS ---
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
[2025-05-22 17:00] VITALS: BP 104/73; PULSE 66; O2SAT 92
[2025-05-22 17:11] LABS: Glucose Urine UA Negative (Normal); Nitrate Urine Negative (Negative)
[2025-05-22 17:15] LABS: PCP Screen Urine Negative (Negative)
[2025-05-22 17:19] LABS: Add Urine Microscopic? YES
[2025-05-22 17:20] LABS: Alanine Aminotransferase 17 U/L (0-41); Albumin Level 4.3 g/dL (3.5-5.2); Alkaline Phosphatase 73 U/L (40-130); Anion Gap 14.3 (5-19); Aspartate Amino Transferase 16 U/L (0-40); Blood Urea Nitrogen 9 mg/dL (8-23); Calcium 9.3 mg/dL (8.5-10.5); Carbon Dioxide 25 mmol/L (22-29); Chloride 103 mmol/L (98-107); Creatinine Clr Calc Pharmacy 87.5954; Globulin 3.0 g/dL (1.3-4.6); Glucose 137 mg/dL (65-115); Osmolality Calculated 287 mOsm/kg (285-295); Potassium 4.3 mmol/L (3.5-5.1); Sodium 138 mmol/L (136-145); Total Protein 7.3 g/dL (6.6-8.7)
[2025-05-22 17:21] LABS: INR 1.07 (0.8-1.2); Partial Thromboplastin Time 26.8 SECONDS (23.9-36.7); Prothrombin Time 14.60 SECONDS (12.1-14.9)
[2025-05-22 17:26] LABS: Specific Gravity, Urine 1.041 (1.005-1.030)
[2025-05-22 18:24] VITALS: BP 109/80; PULSE 66; O2SAT 66
== END 2025-05-22 18:25 | disposition home or self-care (01) ==
PROVIDERS: Emergency Provider Emergency Medicine; PCP Family Medicine
DX: G40.109 Localization-related (focal) (partial) symptomatic epilepsy and epileptic syndromes with simple partial seizures, not intractable, without status epilepticus (principal); Z86.73 Personal history of transient ischemic attack (TIA), and cerebral infarction without residual deficits; F06.70 Mild neurocognitive disorder due to known physiological condition without behavioral disturbance; Z79.01 Long term (current) use of anticoagulants; Z79.02 Long term (current) use of antithrombotics/antiplatelets; E78.5 Hyperlipidemia, unspecified; I10 Essential (primary) hypertension
CPT/HCPCS: 36415; 36416; 70450; 80053; 80306; 81001; 82962; 85025; 85610; 85730; 93005; 96365; 99285; J1953

== ENCOUNTER → 2025-07-10 08:57 | Outpatient (BNVA) | payer OTHER, SELFPAY | PROVIDERS: PCP Family Medicine; Referring Provider Emergency Medicine; Visit Provider Specialist | DX: G40.209 Localization-related (focal) (partial) symptomatic epilepsy and epileptic syndromes with complex partial seizures, not intractable, without status epilepticus (principal); G45.4 Transient global amnesia; Z86.73 Personal history of transient ischemic attack (TIA), and cerebral infarction without residual deficits; I48.91 Unspecified atrial fibrillation | CPT/HCPCS: 99205 ==

== ENCOUNTER 2025-07-13 10:05 | Outpatient (CLI) | payer OTHER, SELFPAY ==
[2025-07-13 11:19] LABS: Vitamin B12 256 pg/mL (232-1245)
== END 2025-07-13 10:06 | disposition home or self-care (01) ==
LOC: LAB 10:06
PROVIDERS: PCP Family Medicine; Visit Provider Specialist
DX: R41.3 Other amnesia (principal)
CPT/HCPCS: 36415; 82233; 82234; 82542; 82607; 82746; 83520